=== PATIENT | female | born 1985 | race Hispanic/Latino ===

== ENCOUNTER 2016-11-21 21:33 | Emergency (ER) | payer OTHER ==
[2016-11-21 22:25] LABS: Bilirubin Negative (Negative); Blood, Urine Negative (Negative); Glucose, Urine (Dipstick) Negative (Negative); Ketone, Urine Negative (Negative); Nitrite Negative (Negative); Protein, Urine (Dipstick) Negative (Neg-Trace)
[2016-11-21 22:27] LABS: Bacteria/HPF Rare-Few HPF (None Seen); Hyaline Casts/LPF 0-3 HYALINE CAST LPF (0-3 Hyaline); RBC/HPF 0-3 HPF (0-3)
[2016-11-21 22:32] LABS: #Basophils 0.1 thou/uL (0.0-0.2); #Eosinphils 0.3 thou/uL (0.0-0.7); #Lymphocytes 2.6 thou/uL (1.20-3.40); #Monocytes 0.8 thou/uL (0.11-0.59); #Neutrophils 4.9 thou/uL (1.40-6.50); %Basophils 0.6 % (0.0-1.0); %Eosinophils 3.4 % (0.0-10.0); %Monocytes 9.4 % (0.0-10.0); Hematocrit 36.7 % (36.0-47.0); Mean Platelet Volume 7.6 fL (7.4-10.4); Red Blood Cell (RBC) Count 4.13 mill/uL (4.20-5.40); White Blood Cell (WBC) Count 8.7 thou/uL (4.8-10.8)
[2016-11-21 22:52] LABS: ALT (SGPT) 14 U/L (8-55); AST (SGOT) 10 U/L (5-34); Alkaline Phosphatase 59 U/L (40-150); Anion Gap 14 mmol/L (10-20); BUN (Urea Nitrogen) 11 mg/dL (7.0-18.7); Bilirubin, Total 0.2 mg/dL (0.2-1.2); Calc. Creatinine Clearance 0 mL/min (70-130); Calcium 9.5 mg/dL (7.8-10.44); Carbon Dioxide 25 mmol/L (22-29); Chloride 105 mmol/L (98-107); Estimated GFR-MDRD Greater than 90; Globulin 2.9 g/dL (2.4-3.5); Lipase 19 U/L (8-78); Protein, Total 6.6 g/dL (6.0-8.3)
== END 2016-11-21 23:07 | disposition home or self-care (01) ==
LOC: ERS 21:33
DX: N30.00 Acute cystitis without hematuria (principal); Z86.73 Personal history of transient ischemic attack (TIA), and cerebral infarction without residual deficits
CPT/HCPCS: 36415; 51701; 80053; 81003; 81015; 83690; 84703; 85025; A4353

== ENCOUNTER 2016-12-18 07:00 | Emergency (ER) | payer OTHER ==
[2016-12-18] MEDS ORDERED: Ondansetron ODT 4 MG TAB ONE (07:17)
[2016-12-18] MEDS ORDERED: Ketorolac Tromethamine 30 MG/ML VIAL ONE (07:17)
[2016-12-18 07:43] LABS: Bilirubin Negative (Negative); Blood, Urine Negative (Negative); Glucose, Urine (Dipstick) Negative (Negative); Ketone, Urine Negative (Negative); Nitrite Negative (Negative); Protein, Urine (Dipstick) Negative (Neg-Trace); Urobilinogen 0.2 mg/dL (0.2-1.0)
[2016-12-18 07:45] LABS: Bacteria/HPF Rare-Few HPF (None Seen); Hyaline Casts/LPF 0-3 HYALINE CAST LPF (0-3 Hyaline); RBC/HPF 0-3 HPF (0-3); WBC/HPF 0-3 HPF (0-3)
[2016-12-18 08:27] LABS: #Eosinphils 0.3 thou/uL (0.0-0.7); #Lymphocytes 1.7 thou/uL (1.20-3.40); #Monocytes 0.7 thou/uL (0.11-0.59); %Basophils 0.4 % (0.0-1.0); %Eosinophils 3.1 % (0.0-10.0); %Lymphocytes 19.9 % (21.0-51.0); %Monocytes 8.4 % (0.0-10.0); Hematocrit 39.9 % (36.0-47.0); Mean Platelet Volume 7.3 fL (7.4-10.4); White Blood Cell (WBC) Count 8.7 thou/uL (4.8-10.8)
[2016-12-18 08:47] LABS: ALT (SGPT) 14 U/L (8-55); AST (SGOT) 8 U/L (5-34); Alkaline Phosphatase 52 U/L (40-150); Anion Gap 12 mmol/L (10-20); BUN (Urea Nitrogen) 10 mg/dL (7.0-18.7); Bilirubin, Total 0.5 mg/dL (0.2-1.2); Calc. Creatinine Clearance 0 mL/min (70-130); Calcium 8.8 mg/dL (7.8-10.44); Carbon Dioxide 27 mmol/L (22-29); Chloride 105 mmol/L (98-107); Estimated GFR-MDRD Greater than 90; Globulin 3.3 g/dL (2.4-3.5); Lipase 14 U/L (8-78); Protein, Total 7.1 g/dL (6.0-8.3)
[2016-12-18] MEDS ORDERED: Lidocaine Viscous Sol 2% 15 ml UD Cup ONE (09:28)
[2016-12-18] MEDS ORDERED: Mag-Al 1200 mg/1200 mg/30 ML UDCUP ONE (09:28)
== END 2016-12-18 10:42 | disposition home or self-care (01) ==
LOC: ERS 07:00
DX: R10.13 Epigastric pain (principal)
CPT/HCPCS: 36415; 80053; 81003; 81015; 81025; 83690; 85025; 96372; J1885; Q0162

== ENCOUNTER 2017-01-09 11:19 | Emergency (ER) | payer SELFPAY ==
[2017-01-09] MEDS ORDERED: diphenhydrAMINE 50 MG/ML VIAL ONE (11:58)
[2017-01-09] MEDS ORDERED: Ketorolac Tromethamine 30 MG/ML VIAL ONE (11:59)
[2017-01-09] MEDS ORDERED: Metoclopramide HCl 10 MG/2 ML VIAL ONE (11:59)
[2017-01-09 13:04] LABS: #Eosinphils 0.3 thou/uL (0.0-0.7); #Lymphocytes 1.7 thou/uL (1.20-3.40); #Monocytes 0.5 thou/uL (0.11-0.59); #Neutrophils 4.6 thou/uL (1.40-6.50); %Basophils 0.6 % (0.0-1.0); %Lymphocytes 23.9 % (21.0-51.0); %Monocytes 7.1 % (0.0-10.0); Hematocrit 40.7 % (36.0-47.0); White Blood Cell (WBC) Count 7.2 thou/uL (4.8-10.8)
[2017-01-09 13:19] LABS: ALT (SGPT) 14 U/L (8-55); AST (SGOT) 8 U/L (5-34); Alkaline Phosphatase 51 U/L (40-150); Anion Gap 13 mmol/L (10-20); BUN (Urea Nitrogen) 12 mg/dL (7.0-18.7); Bilirubin, Total 0.3 mg/dL (0.2-1.2); Calc. Creatinine Clearance 0 mL/min (70-130); Calcium 9.2 mg/dL (7.8-10.44); Carbon Dioxide 25 mmol/L (22-29); Chloride 104 mmol/L (98-107); Estimated GFR-MDRD Greater than 90; Globulin 3.1 g/dL (2.4-3.5); Lipase 13 U/L (8-78); Protein, Total 6.9 g/dL (6.0-8.3)
[2017-01-09 13:26] LABS: Troponin I Less than 0.010 ng/mL (< 0.028)
== END 2017-01-09 14:14 | disposition home or self-care (01) ==
LOC: ERS 11:19
DX: R07.89 Other chest pain (principal); G43.909 Migraine, unspecified, not intractable, without status migrainosus
CPT/HCPCS: 80053; 82553; 83690; 84484; 85025; 93005; 96365; 96375; J1200; J1885; J2765

== ENCOUNTER 2017-02-25 19:57 | Emergency (ER) | payer MEDICAID, OTHER, SELFPAY ==
[2017-02-25] MEDS ORDERED: Magnesium Citrate 300 ML BOT ONE (21:01)
--- NOTE | 2017-02-25 21:23 | RAD ---
TWO VIEWS ABDOMEN: Indication: Constipation. FINDINGS: Bowel gas pattern is unobstructed. Only a minimal amount of retained stool is seen within the colon. No acute osseous abnormality is evident. No suspicious calcifications are identified. IMPRESSION: No acute abnormality. POS: [facility]
== END 2017-02-25 22:01 | disposition home or self-care (01) ==
LOC: ERS 19:57
DX: K59.00 Constipation, unspecified (principal); G43.909 Migraine, unspecified, not intractable, without status migrainosus; Z79.899 Other long term (current) drug therapy
CPT/HCPCS: 74018

== ENCOUNTER 2017-03-05 15:46 | Emergency (ER) | payer MEDICAID, OTHER, SELFPAY | END 2017-03-05 18:17 | disposition left against medical advice (07) | LOC: ERS 15:46 | DX: Z53.21 Procedure and treatment not carried out due to patient leaving prior to being seen by health care provider (principal) | CPT/HCPCS: 93005 ==

== ENCOUNTER 2017-03-05 18:21 | Emergency (ER) | payer MEDICAID, OTHER, SELFPAY ==
[2017-03-05 19:27] LABS: Bilirubin Negative (Negative); Blood, Urine Trace (Negative); Clarity CLEAR (Clear); Glucose, Urine (Dipstick) Negative (Negative); Leukocyte Negative (Negative); Nitrite Negative (Negative); Protein, Urine (Dipstick) Negative (Neg-Trace); Urobilinogen 0.2 mg/dL (0.2-1.0)
[2017-03-05 19:28] LABS: Bacteria/HPF None Seen HPF (None Seen); Hyaline Casts/LPF 0-3 HYALINE CAST LPF (0-3 Hyaline); Pathc Cast-AUWi Flag 0.13 (0-2.49); Squamous Epithelial 0-3 HPF (0-3); WBC/HPF None Seen HPF (0-3)
[2017-03-05 19:57] LABS: Bicarbonate (HCO3v) 24.9 mmol/L (1.0-85.0); CO2 Tension (PvCO2) 33.6 mmHg (41.0-51.0); Calcium, Ionized 1.12 mmol/L (1.12-1.32); Hemoglobin - Calc 16.8 g/dL (12.0-18.0); Lactate 1.81 mmol/L (0.50-2.20); O2 Tension (PvO2) 82.4 mmHg (35.0-45.0); Potassium 5.4 mmol/L (3.4-4.7); T. Carbon Dioxide 25.9 mmol/L (1.0-85.0); pH (Venous) 7.478 (7.35-7.45); vO2 Saturation-calc 96.9 % (0.0-100.0)
[2017-03-05] MEDS ORDERED: Acetaminophen 500 MG TAB ONE (20:11)
--- NOTE | 2017-03-05 20:23 | RAD ---
PA AND LATERAL VIEWS OF THE CHEST 03/05/17 HISTORY: Pleuritic chest pain. FINDINGS: Comparison is made with exam of 12/08/13. The heart size is normal. The lungs are expanded without focal areas of consolidation, pneumothorax o r pleural effusions. No acute osseous abnormalities are seen. IMPRESSION: No radiographic evidence of acute cardiopulmonary process. POS: [facility]
[2017-03-05 20:51] LABS: ALT (SGPT) 14 U/L (8-55); AST (SGOT) 7 U/L (5-34); Alkaline Phosphatase 48 U/L (40-150); Anion Gap 16 mmol/L (10-20); BUN (Urea Nitrogen) 10 mg/dL (7.0-18.7); Bilirubin, Total 0.3 mg/dL (0.2-1.2); Calc. Creatinine Clearance 0 mL/min (70-130); Calcium 8.9 mg/dL (7.8-10.44); Carbon Dioxide 21 mmol/L (22-29); Chloride 107 mmol/L (98-107); Estimated GFR-MDRD Greater than 90; Globulin 3.2 g/dL (2.4-3.5); Glucose 88 mg/dL (70-105); Protein, Total 7.2 g/dL (6.0-8.3); Sodium 140 mmol/L (136-145)
[2017-03-05 22:15] LABS: #Eosinphils 0.2 thou/uL (0.0-0.7); #Monocytes 0.6 thou/uL (0.11-0.59); #Neutrophils 4.8 thou/uL (1.40-6.50); %Basophils 0.2 % (0.0-1.0); %Eosinophils 3.4 % (0.0-10.0); %Lymphocytes 15.4 % (21.0-51.0); %Monocytes 9.1 % (0.0-10.0); %Neutrophils 71.9 % (42.0-75.0); Hemoglobin 11.4 g/dL (12.0-16.0); Mean Corpuscular HGB CONC 33.4 g/dL (32.0-36.0); Mean Corpuscular Hemoglobin 29.7 pg (27.0-31.0); Mean Platelet Volume 7.3 fL (7.4-10.4); Platelet Count 211 thou/uL (130-400); Red Blood Cell (RBC) Count 3.84 mill/uL (4.20-5.40); White Blood Cell (WBC) Count 6.6 thou/uL (4.8-10.8)
--- NOTE | 2017-03-05 23:46 | ULT ---
PELVIC ULTRASOUND WITH DOPPLER (Transabdominal, transvaginal, vines scale, color flow and spectral doppler). 03/05/17 HISTORY: Vaginal bleeding with clots. FINDINGS: The uterus measures 7.7 x 3.9 x 5.8 cm without focal mass or endometrial fluid. The endometrium measu res 5 mm in thickness. The right ovary measures 2.9 x 2.5 x 1.5 cm and the left ovary measures 3.3 x 2.1 x 2.8 cm. No adnexa l mass is seen. Flow is demonstrated to both ovaries. A small amount of free fluid is seen in the ant erior cul-de-sac. IMPRESSION: No significant abnormalities are identified. POS: [facility]
--- NOTE | 2017-03-23 22:42 | EKG ---
Test Reason : Blood Pressure : / mmHG Vent. Rate : 095 BPM Atrial Rate : 095 BPM P-R Int : 128 ms QRS Dur : 092 ms QT Int : 340 ms P-R-T Axes : 020 074 030 degrees QTc Int : 427 ms Normal sinus rhythm Normal ECG Confirmed by FRANCE ALVAREZ ([id number]), associate entertainment editor ROSALIND MURILLO ([id number]) on 03/23/2017 10:40:56 PM Referred By: Confirmed By:FRANCE ALVAREZ
== END 2017-03-06 00:02 | disposition home or self-care (01) ==
LOC: ERS 18:21
DX: J10.1 Influenza due to other identified influenza virus with other respiratory manifestations (principal); N94.6 Dysmenorrhea, unspecified; G43.909 Migraine, unspecified, not intractable, without status migrainosus
CPT/HCPCS: 36415; 51701; 71046; 76856; 80053; 81003; 81015; 82330; 82803; 83605; 85025; 86850; 86900; 86901; 87040; 87149; 87804; 93005; 96360

== ENCOUNTER 2017-04-06 09:45 | Emergency (ER) | payer MEDICAID, SELFPAY ==
[2017-04-06] MEDS ORDERED: diphenhydrAMINE 50 MG/ML VIAL ONE (12:12)
[2017-04-06] MEDS ORDERED: Ketorolac Tromethamine 30 MG/ML VIAL ONE (12:12)
[2017-04-06] MEDS ORDERED: Metoclopramide HCl 10 MG/2 ML VIAL ONE (12:12)
[2017-04-06 12:36] LABS: #Eosinphils 0.3 thou/uL (0.0-0.7); #Lymphocytes 1.6 thou/uL (1.20-3.40); #Monocytes 0.5 thou/uL (0.11-0.59); #Neutrophils 4.3 thou/uL (1.40-6.50); %Basophils 0.7 % (0.0-1.0); %Eosinophils 4.6 % (0.0-10.0); %Monocytes 7.9 % (0.0-10.0); %Neutrophils 63.8 % (42.0-75.0); Hemoglobin 12.5 g/dL (12.0-16.0); Mean Corpuscular HGB CONC 32.8 g/dL (32.0-36.0); Mean Corpuscular Hemoglobin 29.1 pg (27.0-31.0); Mean Corpuscular Volume 88.8 fl (81.0-99.0); Mean Platelet Volume 7.7 fL (7.4-10.4); Platelet Count 300 thou/uL (130-400); Red Blood Cell (RBC) Count 4.28 mill/uL (4.20-5.40); White Blood Cell (WBC) Count 6.8 thou/uL (4.8-10.8)
[2017-04-06 12:57] LABS: ALT (SGPT) 12 U/L (8-55); AST (SGOT) 10 U/L (5-34); Albumin 3.9 g/dL (3.5-5.0); Alkaline Phosphatase 54 U/L (40-150); Anion Gap 13 mmol/L (10-20); BUN (Urea Nitrogen) 7 mg/dL (7.0-18.7); Bilirubin, Total 0.3 mg/dL (0.2-1.2); CK (CPK) 135 U/L (29-168); Calc. Creatinine Clearance 0 mL/min (70-130); Calcium 9.5 mg/dL (7.8-10.44); Carbon Dioxide 25 mmol/L (22-29); Chloride 106 mmol/L (98-107); Estimated GFR-MDRD Greater than 90; Globulin 3.3 g/dL (2.4-3.5); Glucose 99 mg/dL (70-105); Protein, Total 7.2 g/dL (6.0-8.3); Sodium 140 mmol/L (136-145)
[2017-04-06 13:06] LABS: CKMB 2.4 ng/mL (0-6.6); Troponin I Less than 0.010 ng/mL (< 0.028)
[2017-04-06] MEDS ORDERED: Acetaminophen 500 MG TAB ONE (14:44)
[2017-04-06] MEDS ORDERED: Magnesium Sulfate 2 GM/100 ML BAG ONE (14:44)
[2017-04-06] MEDS ORDERED: methylPREDNISolone Sod Succ/PF 125 MG/2 ML VIAL ONE (14:44)
--- NOTE | 2017-04-20 17:04 | EKG ---
Test Reason : DIAGNOSING PURPOSES Blood Pressure : / mmHG Vent. Rate : 057 BPM Atrial Rate : 057 BPM P-R Int : 146 ms QRS Dur : 082 ms QT Int : 454 ms P-R-T Axes : 023 055 040 degrees QTc Int : 441 ms Sinus bradycardia Otherwise normal ECG Confirmed by BUBBA SALAZAR D.O. ([id number]), assistant editor ROSALIND MURILLO ([id number]) on 04/20/2017 5:04:04 PM Referred By: Confirmed By:BUBBA SALAZAR D.O.
== END 2017-04-06 15:58 | disposition home or self-care (01) ==
LOC: ERS 09:45
DX: G43.909 Migraine, unspecified, not intractable, without status migrainosus (principal)
CPT/HCPCS: 36415; 80053; 82553; 84484; 85025; 87804; 93005; 96365; 96366; 96367; 96375; J1200; J1885; J2765; J2930; J3475

== ENCOUNTER 2017-04-24 06:24 | Emergency (ER) | payer SELFPAY ==
[2017-04-24 07:18] LABS: Bilirubin Negative (Negative); Blood, Urine Negative (Negative); Clarity CLOUDY (Clear); Glucose, Urine (Dipstick) Negative (Negative); Leukocyte Moderate (Negative); Nitrite Negative (Negative); Protein, Urine (Dipstick) Negative (Neg-Trace); Specific Gravity, Urine 1.024 (1.002-1.036); Urobilinogen 0.2 mg/dL (0.2-1.0); pH, Urine 5.5 (5.0-9.0)
[2017-04-24 07:20] LABS: Bacteria/HPF 2+ HPF (None Seen); Hyaline Casts/LPF 4-6 HYALINE CAST LPF (0-3 Hyaline); Pathc Cast-AUWi Flag 0.81 (0-2.49); RBC/HPF 0-3 HPF (0-3)
[2017-04-24 07:25] LABS: Pregnancy Test - Urine (BHCG) Negative (Negative); Pregu Control Background? CLEAR/WHITE (CLR/WHITE); Pregu Control Bar Appear? YES (CONTROL BAR); Specific Gravity 1.024 (1.002-1.036)
[2017-04-24] MEDS ORDERED: Ondansetron HCl/PF 4 MG/2 ML Vial ONE (07:32)
[2017-04-24 07:46] LABS: #Basophils 0.1 thou/uL (0.0-0.2); #Eosinphils 0.4 thou/uL (0.0-0.7); #Lymphocytes 1.8 thou/uL (1.20-3.40); #Monocytes 0.7 thou/uL (0.11-0.59); #Neutrophils 5.5 thou/uL (1.40-6.50); %Basophils 0.8 % (0.0-1.0); %Eosinophils 4.3 % (0.0-10.0); %Lymphocytes 21.3 % (21.0-51.0); %Monocytes 8.3 % (0.0-10.0); %Neutrophils 65.3 % (42.0-75.0); Hemoglobin 12.2 g/dL (12.0-16.0); Mean Corpuscular HGB CONC 32.4 g/dL (32.0-36.0); Mean Corpuscular Hemoglobin 28.3 pg (27.0-31.0); Mean Corpuscular Volume 87.2 fl (81.0-99.0); Mean Platelet Volume 7.4 fL (7.4-10.4); Platelet Count 274 thou/uL (130-400); RBC Distribution Width 13.5 % (11.5-14.5); Red Blood Cell (RBC) Count 4.32 mill/uL (4.20-5.40); White Blood Cell (WBC) Count 8.4 thou/uL (4.8-10.8)
[2017-04-24 08:11] LABS: ALT (SGPT) 10 U/L (8-55); AST (SGOT) 7 U/L (5-34); Albumin 3.8 g/dL (3.5-5.0); Alkaline Phosphatase 45 U/L (40-150); Anion Gap 11 mmol/L (10-20); BUN (Urea Nitrogen) 13 mg/dL (7.0-18.7); Bilirubin, Total 0.3 mg/dL (0.2-1.2); Calc. Creatinine Clearance 0 mL/min (70-130); Calcium 9.1 mg/dL (7.8-10.44); Carbon Dioxide 25 mmol/L (22-29); Chloride 105 mmol/L (98-107); Estimated GFR-MDRD Greater than 90; Globulin 2.9 g/dL (2.4-3.5); Glucose 101 mg/dL (70-105); Lipase 23 U/L (8-78); Potassium 3.8 mmol/L (3.5-5.1); Protein, Total 6.7 g/dL (6.0-8.3); Sodium 137 mmol/L (136-145)
--- NOTE | 2017-04-24 08:55 | CT ---
CT ABDOMEN AND PELVIS WITH CONTRAST: HISTORY: Abdominal pain. COMPARISON: CT abdomen and pelvis 09/06/15. FINDINGS: Lung bases are clear. No pericardial effusion. The appendix is visualized and is normal. There are no dilated loops of large or small bowel. Both ovaries are seen. Mild diverticular disease of the sigmoid colon without active inflammation. The aortoiliac contour is normal. No aneurysmal dilatation. No hydronephrosis. The adrenal glands are unremarkable as well as the spleen and pancreas. Liver is unremarkable. No acute osseous abnormality. IMPRESSION: 1. No acute inflammatory process of the abdomen and pelvis. 2. Normal appendix. 3. Mild diverticular disease of sigmoid colon without active inflammation. POS: [facility]
[2017-04-24] MEDS ORDERED: ISOVUE-370 76%-LOCM 1 ML ONE (13:09)
== END 2017-04-24 08:58 | disposition home or self-care (01) ==
LOC: ERS 06:24
DX: N39.0 Urinary tract infection, site not specified (principal); G43.909 Migraine, unspecified, not intractable, without status migrainosus; Z79.899 Other long term (current) drug therapy; Z86.73 Personal history of transient ischemic attack (TIA), and cerebral infarction without residual deficits
CPT/HCPCS: 36415; 74177; 80053; 81003; 81015; 81025; 83690; 85025; 87086; 96361; 96374; J2405

== ENCOUNTER 2017-05-29 00:28 | Emergency (ER) | payer MEDICAID, OTHER ==
[2017-05-29] MEDS ORDERED: Acetaminophen 325 MG TAB ONE (02:25)
[2017-05-29] MEDS ORDERED: diphenhydrAMINE 50 MG/ML VIAL ONE (02:25)
[2017-05-29] MEDS ORDERED: Dexamethasone 10 MG/ML VIAL ONE (02:25)
[2017-05-29] MEDS ORDERED: Metoclopramide HCl 10 MG/2 ML VIAL ONE (02:27)
[2017-05-29] MEDS ORDERED: Ketorolac Tromethamine 30 MG/ML VIAL ONE (03:22)
[2017-05-29] MEDS ORDERED: Fentanyl 100 MCG/2 ML VIAL ONE (04:24)
== END 2017-05-29 05:50 | disposition home or self-care (01) ==
LOC: ERS 00:28
DX: G43.909 Migraine, unspecified, not intractable, without status migrainosus (principal)
CPT/HCPCS: 96365; 96367; 96375; J1100; J1200; J1885; J2765; J3010; J3475; J7050

== ENCOUNTER 2017-06-12 06:45 | Emergency (ER) | payer OTHER ==
[2017-06-12 07:29] LABS: #Eosinphils 0.4 thou/uL (0.0-0.7); #Lymphocytes 1.6 thou/uL (1.20-3.40); #Monocytes 0.7 thou/uL (0.11-0.59); #Neutrophils 7.8 thou/uL (1.40-6.50); %Basophils 0.4 % (0.0-1.0); %Eosinophils 3.4 % (0.0-10.0); %Lymphocytes 15.1 % (21.0-51.0); %Monocytes 6.5 % (0.0-10.0); %Neutrophils 74.6 % (42.0-75.0); Hemoglobin 12.8 g/dL (12.0-16.0); Mean Corpuscular HGB CONC 32.1 g/dL (32.0-36.0); Mean Corpuscular Hemoglobin 28.4 pg (27.0-31.0); Mean Corpuscular Volume 88.5 fl (81.0-99.0); Mean Platelet Volume 7.6 fL (7.4-10.4); Platelet Count 299 thou/uL (130-400); RBC Distribution Width 13.3 % (11.5-14.5); Red Blood Cell (RBC) Count 4.51 mill/uL (4.20-5.40); White Blood Cell (WBC) Count 10.5 thou/uL (4.8-10.8)
[2017-06-12 07:54] LABS: ALT (SGPT) 15 U/L (8-55); AST (SGOT) 8 U/L (5-34); Albumin 3.9 g/dL (3.5-5.0); Alkaline Phosphatase 53 U/L (40-150); Anion Gap 12 mmol/L (10-20); BUN (Urea Nitrogen) 8 mg/dL (7.0-18.7); Bilirubin, Total 0.5 mg/dL (0.2-1.2); Calc. Creatinine Clearance 0 mL/min (70-130); Calcium 9.4 mg/dL (7.8-10.44); Carbon Dioxide 24 mmol/L (22-29); Chloride 104 mmol/L (98-107); Estimated GFR-MDRD Greater than 90; Globulin 2.9 g/dL (2.4-3.5); Glucose 109 mg/dL (70-105); Lipase 12 U/L (8-78); Potassium 3.9 mmol/L (3.5-5.1); Protein, Total 6.8 g/dL (6.0-8.3); Sodium 136 mmol/L (136-145)
== END 2017-06-12 08:29 | disposition home or self-care (01) ==
LOC: ERS 06:45
DX: S80.861A Insect bite (nonvenomous), right lower leg, initial encounter (principal); L03.115 Cellulitis of right lower limb; R10.31 Right lower quadrant pain
CPT/HCPCS: 36415; 80053; 83690; 85025; 99284

== ENCOUNTER 2017-06-13 18:09 | Emergency (ER) | payer OTHER ==
[2017-06-13] MEDS ORDERED: methylPREDNISolone Sod Succ/PF 125 MG/2 ML VIAL ONE (18:53)
== END 2017-06-13 19:24 | disposition home or self-care (01) ==
LOC: ERS 18:09
DX: L03.115 Cellulitis of right lower limb (principal); J02.9 Acute pharyngitis, unspecified
CPT/HCPCS: 96372; J2930

== ENCOUNTER 2017-06-21 22:27 | Emergency (ER) | payer OTHER ==
[2017-06-21] MEDS ORDERED: Dicyclomine 20 MG TAB ONE (22:59)
[2017-06-21] MEDS ORDERED: Ondansetron ODT 8 MG TAB ONE (22:59)
[2017-06-21 23:13] LABS: #Eosinphils 0.4 thou/uL (0.0-0.7); #Lymphocytes 2.2 thou/uL (1.20-3.40); #Monocytes 0.7 thou/uL (0.11-0.59); #Neutrophils 4.9 thou/uL (1.40-6.50); %Basophils 0.4 % (0.0-1.0); %Eosinophils 4.4 % (0.0-10.0); %Lymphocytes 26.7 % (21.0-51.0); %Monocytes 8.6 % (0.0-10.0); Hemoglobin 12.2 g/dL (12.0-16.0); Mean Corpuscular HGB CONC 33.7 g/dL (32.0-36.0); Mean Corpuscular Volume 86.1 fl (81.0-99.0); Mean Platelet Volume 7.1 fL (7.4-10.4); Platelet Count 288 thou/uL (130-400); RBC Distribution Width 13.4 % (11.5-14.5); Red Blood Cell (RBC) Count 4.19 mill/uL (4.20-5.40); White Blood Cell (WBC) Count 8.1 thou/uL (4.8-10.8)
--- NOTE | 2017-06-21 23:30 | RAD ---
PORTABLE CHEST ONE VIEW 06/21/17 at 11:07 p.m. HISTORY: Chest pain, epigastric pain. FINDINGS: Comparison is made with the exam of 11/17/15. The heart size is normal. No confluent areas of consolidation, pneumothorax or pleural effusions are seen. IMPRESSION: No radiographic evidence of acute cardiopulmonary process. POS: [facility]
[2017-06-21 23:35] LABS: ALT (SGPT) 16 U/L (8-55); AST (SGOT) 10 U/L (5-34); Albumin 3.9 g/dL (3.5-5.0); Alkaline Phosphatase 54 U/L (40-150); Anion Gap 14 mmol/L (10-20); BUN (Urea Nitrogen) 12 mg/dL (7.0-18.7); Bilirubin, Total Less than 0.2 mg/dL (0.2-1.2); Calc. Creatinine Clearance 0 mL/min (70-130); Calcium 9.7 mg/dL (7.8-10.44); Carbon Dioxide 24 mmol/L (22-29); Chloride 106 mmol/L (98-107); Estimated GFR-MDRD Greater than 90; Globulin 2.9 g/dL (2.4-3.5); Glucose 91 mg/dL (70-105); Potassium 3.4 mmol/L (3.5-5.1); Protein, Total 6.8 g/dL (6.0-8.3); Sodium 141 mmol/L (136-145)
[2017-06-21 23:40] LABS: CKMB 4.3 ng/mL (0-6.6); Troponin I Less than 0.010 ng/mL (< 0.028)
== END 2017-06-22 00:26 | disposition home or self-care (01) ==
LOC: ERS 22:27
DX: R07.89 Other chest pain (principal); Z86.73 Personal history of transient ischemic attack (TIA), and cerebral infarction without residual deficits; Z79.899 Other long term (current) drug therapy
CPT/HCPCS: 36415; 71045; 80053; 82553; 84484; 85025; 93005

== ENCOUNTER 2017-07-18 18:26 | Emergency (ER) | payer OTHER ==
[2017-07-18 19:08] LABS: #Eosinphils 0.3 thou/uL (0.0-0.7); #Lymphocytes 1.7 thou/uL (1.20-3.40); #Monocytes 0.4 thou/uL (0.11-0.59); %Basophils 0.4 % (0.0-1.0); %Eosinophils 3.5 % (0.0-10.0); %Lymphocytes 20.2 % (21.0-51.0); %Monocytes 5.1 % (0.0-10.0); %Neutrophils 70.9 % (42.0-75.0); Hemoglobin 13.1 g/dL (12.0-16.0); Mean Corpuscular Hemoglobin 28.8 pg (27.0-31.0); Mean Corpuscular Volume 87.2 fl (81.0-99.0); Platelet Count 244 thou/uL (130-400); RBC Distribution Width 13.5 % (11.5-14.5); Red Blood Cell (RBC) Count 4.56 mill/uL (4.20-5.40); White Blood Cell (WBC) Count 8.5 thou/uL (4.8-10.8)
[2017-07-18] MEDS ORDERED: diphenhydrAMINE 50 MG/ML VIAL ONE (19:09)
[2017-07-18] MEDS ORDERED: Metoclopramide HCl 10 MG/2 ML VIAL ONE (19:09)
[2017-07-18 19:29] LABS: ALT (SGPT) 20 U/L (8-55); AST (SGOT) 19 U/L (5-34); Albumin 4.1 g/dL (3.5-5.0); Alkaline Phosphatase 48 U/L (40-150); Anion Gap 13 mmol/L (10-20); BUN (Urea Nitrogen) 9 mg/dL (7.0-18.7); Bilirubin, Total 0.4 mg/dL (0.2-1.2); Calc. Creatinine Clearance 0 mL/min (70-130); Calcium 9.2 mg/dL (7.8-10.44); Carbon Dioxide 28 mmol/L (22-29); Chloride 102 mmol/L (98-107); Estimated GFR-MDRD 90; Globulin 3.8 g/dL (2.4-3.5); Glucose 87 mg/dL (70-105); Lipase 16 U/L (8-78); Potassium 4.3 mmol/L (3.5-5.1); Protein, Total 7.9 g/dL (6.0-8.3); Sodium 139 mmol/L (136-145)
[2017-07-18 20:58] LABS: Bilirubin Negative (Negative); Blood, Urine Negative (Negative); Clarity CLEAR (Clear); Glucose, Urine (Dipstick) Negative (Negative); Leukocyte Small (Negative); Nitrite Negative (Negative); Protein, Urine (Dipstick) Negative (Neg-Trace); Specific Gravity, Urine 1.014 (1.002-1.036); Urobilinogen 0.2 mg/dL (0.2-1.0); pH, Urine 7.5 (5.0-9.0)
[2017-07-18 20:59] LABS: Pregnancy Test - Urine (BHCG) Negative (Negative); Pregu Control Background? CLEAR/WHITE (CLR/WHITE); Pregu Control Bar Appear? YES (CONTROL BAR); Specific Gravity 1.014 (1.002-1.036)
[2017-07-18 21:00] LABS: Bacteria/HPF Rare-Few HPF (None Seen); Hyaline Casts/LPF 0-3 HYALINE CAST LPF (0-3 Hyaline); Squamous Epithelial 0-3 HPF (0-3)
== END 2017-07-18 21:38 | disposition home or self-care (01) ==
LOC: ERS 18:26
DX: N39.0 Urinary tract infection, site not specified (principal); R51 Headache; Z79.899 Other long term (current) drug therapy
CPT/HCPCS: 80053; 81003; 81015; 81025; 83690; 85025; 96361; 96374; 96375; J1200; J2765

== ENCOUNTER 2017-09-08 14:17 | Emergency (ER) | payer OTHER ==
[~2017-09-08 14:17] MED LIST: ISOVUE-370 76%-LOCM 1 ML ONE
[2017-09-08 15:26] LABS: Bilirubin Negative (Negative); Blood, Urine Negative (Negative); Clarity CLEAR (Clear); Glucose, Urine (Dipstick) Negative (Negative); Leukocyte Small (Negative); Nitrite Negative (Negative); Protein, Urine (Dipstick) Negative (Neg-Trace); Specific Gravity, Urine 1.028 (1.002-1.036); Urobilinogen 0.2 mg/dL (0.2-1.0); pH, Urine 5.5 (5.0-9.0)
[2017-09-08 15:28] LABS: Bacteria/HPF Rare-Few HPF (None Seen); Hyaline Casts/LPF 0-3 HYALINE CAST LPF (0-3 Hyaline); Pathc Cast-AUWi Flag 0.14 (0-2.49); WBC/HPF 0-3 HPF (0-3)
[2017-09-08 15:45] LABS: RBC/HPF 0-3 HPF (0-3)
[2017-09-08 16:36] LABS: Pregnancy Test - Urine (BHCG) Negative (Negative); Pregu Control Background? CLEAR/WHITE (CLR/WHITE); Pregu Control Bar Appear? YES (CONTROL BAR); Specific Gravity 1.028 (1.002-1.036)
[2017-09-08 16:42] LABS: #Eosinphils 0.2 thou/uL (0.0-0.7); #Lymphocytes 1.8 thou/uL (1.20-3.40); #Monocytes 0.6 thou/uL (0.11-0.59); #Neutrophils 5.5 thou/uL (1.40-6.50); %Basophils 0.5 % (0.0-1.0); %Eosinophils 2.4 % (0.0-10.0); %Lymphocytes 22.6 % (21.0-51.0); %Neutrophils 67.5 % (42.0-75.0); Hemoglobin 12.9 g/dL (12.0-16.0); Mean Corpuscular HGB CONC 33.2 g/dL (32.0-36.0); Mean Corpuscular Hemoglobin 28.8 pg (27.0-31.0); Mean Corpuscular Volume 86.9 fL (78.0-98.0); Mean Platelet Volume 7.7 fL (7.4-10.4); Platelet Count 276 thou/uL (130-400); RBC Distribution Width 13.3 % (11.5-14.5); Red Blood Cell (RBC) Count 4.47 mill/uL (4.20-5.40); White Blood Cell (WBC) Count 8.1 thou/uL (4.8-10.8)
[2017-09-08 17:07] LABS: ALT (SGPT) 15 U/L (8-55); AST (SGOT) 9 U/L (5-34); Albumin 4.2 g/dL (3.5-5.0); Alkaline Phosphatase 52 U/L (40-150); Anion Gap 13 mmol/L (10-20); BUN (Urea Nitrogen) 13 mg/dL (7.0-18.7); Bilirubin, Total 0.3 mg/dL (0.2-1.2); Calc. Creatinine Clearance 0 mL/min (70-130); Calcium 9.8 mg/dL (7.8-10.44); Carbon Dioxide 24 mmol/L (22-29); Chloride 107 mmol/L (98-107); Estimated GFR-MDRD Greater than 90; Globulin 3.3 g/dL (2.4-3.5); Glucose 88 mg/dL (70-105); Lipase 19 U/L (8-78); Protein, Total 7.5 g/dL (6.0-8.3); Sodium 140 mmol/L (136-145)
[2017-09-08] MEDS ORDERED: Mag-Al 1200 mg/1200 mg/30 ML UDCUP ONE (17:21)
[2017-09-08] MEDS ORDERED: Lidocaine Viscous Sol 2% 15 ml UD Cup ONE (17:21)
--- NOTE | 2017-09-08 17:33 | CT ---
CONTRAST ENHANCED CT ABDOMEN AND PELVIS: HISTORY: A 31-year-old with a two week history of abdominal pain in the left upper quadrant. The patient has dark bloody stools. TECHNIQUE: Contrast enhanced CT images of the abdomen and pelvis are obtained. Oral contrast was not given, per the order of the ordering physician. This does decrease the sensitivity for detection of pathology. FINDINGS: The lung bases are unremarkable. No evidence of free intraperitoneal air is seen. The liver, spleen, pancreas, gallbladder, adrenal glands, and kidneys are unremarkable. No definite evidence of free intraperitoneal air is seen. No dilated loops of small bowel or colon are seen. No evidence of periaortic lymphadenopathy is seen. The kidneys and ureters are unremarkable. A normal appendix is visualized. Some descending colonic diverticula are present, without evidence of obvious diverticulitis. IMPRESSION: Descending colonic diverticulosis; otherwise, unremarkable contrast enhanced CT images of the abdomen and pelvis. POS: [facility]
== END 2017-09-08 18:47 | disposition home or self-care (01) ==
LOC: ERS 14:17
DX: K29.70 Gastritis, unspecified, without bleeding (principal); N39.0 Urinary tract infection, site not specified; Z79.899 Other long term (current) drug therapy
CPT/HCPCS: 74177; 80053; 81003; 81015; 81025; 83690; 85025

== ENCOUNTER 2017-09-12 20:44 | Emergency (ER) | payer OTHER ==
[2017-09-12 21:46] LABS: Bilirubin Negative (Negative); Blood, Urine Large (Negative); Clarity CLOUDY (Clear); Glucose, Urine (Dipstick) Negative (Negative); Leukocyte Moderate (Negative); Nitrite Negative (Negative); Protein, Urine (Dipstick) 30 mg/dL (Neg-Trace); Specific Gravity, Urine 1.029 (1.002-1.036)
[2017-09-12 21:47] LABS: Pregnancy Test - Urine (BHCG) Negative (Negative); Pregu Control Background? CLEAR/WHITE (CLR/WHITE); Pregu Control Bar Appear? YES (CONTROL BAR); Specific Gravity 1.029 (1.002-1.036)
[2017-09-12 21:51] LABS: Bacteria/HPF None Seen HPF (None Seen); Hyaline Casts/LPF 0-3 HYALINE CAST LPF (0-3 Hyaline); Pathc Cast-AUWi Flag 0.22 (0-2.49); RBC/HPF GREATER THAN 50-TNTC HPF (0-3)
[2017-09-12 22:16] LABS: #Eosinphils 0.3 thou/uL (0.0-0.7); #Lymphocytes 1.9 thou/uL (1.20-3.40); #Monocytes 0.6 thou/uL (0.11-0.59); #Neutrophils 4.6 thou/uL (1.40-6.50); %Basophils 0.5 % (0.0-1.0); %Eosinophils 4.2 % (0.0-10.0); %Lymphocytes 25.6 % (21.0-51.0); %Monocytes 7.8 % (0.0-10.0); %Neutrophils 61.9 % (42.0-75.0); Hemoglobin 12.1 g/dL (12.0-16.0); Mean Corpuscular HGB CONC 32.4 g/dL (32.0-36.0); Mean Corpuscular Hemoglobin 28.4 pg (27.0-31.0); Mean Corpuscular Volume 87.6 fL (78.0-98.0); Mean Platelet Volume 7.7 fL (7.4-10.4); Platelet Count 234 thou/uL (130-400); RBC Distribution Width 13.3 % (11.5-14.5); Red Blood Cell (RBC) Count 4.26 mill/uL (4.20-5.40); White Blood Cell (WBC) Count 7.4 thou/uL (4.8-10.8)
[2017-09-12 22:40] LABS: ALT (SGPT) 13 U/L (8-55); AST (SGOT) 8 U/L (5-34); Albumin 3.9 g/dL (3.5-5.0); Alkaline Phosphatase 52 U/L (40-150); Anion Gap 12 mmol/L (10-20); BUN (Urea Nitrogen) 10 mg/dL (7.0-18.7); Calc. Creatinine Clearance 0 mL/min (70-130); Calcium 8.8 mg/dL (7.8-10.44); Carbon Dioxide 24 mmol/L (22-29); Chloride 108 mmol/L (98-107); Estimated GFR-MDRD Greater than 90; Globulin 2.9 g/dL (2.4-3.5); Glucose 96 mg/dL (70-105); Protein, Total 6.8 g/dL (6.0-8.3); Sodium 140 mmol/L (136-145)
[2017-09-12 22:48] LABS: Bilirubin, Total 0.2 mg/dL (0.2-1.2)
[2017-09-13] MEDS ORDERED: diphenhydrAMINE 50 MG/ML VIAL ONE (00:15)
[2017-09-13] MEDS ORDERED: Ketorolac Tromethamine 30 MG/ML VIAL ONE (00:15)
[2017-09-13] MEDS ORDERED: Metoclopramide HCl 10 MG/2 ML VIAL ONE (00:15)
[2017-09-13] MEDS ORDERED: Azithromycin 250 MG TAB ONE (02:24)
[2017-09-13] MEDS ORDERED: cefTRIAXone\\ROCEPHIN 250 MG VIAL ONE (02:24)
[2017-09-13] MEDS ORDERED: Lidocaine 1% PF 5 ML VIAL ONE (02:24)
[2017-09-16 01:08] LABS: Chlamydia by PCR Not Detected (NotDetected); GC by PCR Not Detected (NotDetected)
== END 2017-09-13 03:09 | disposition home or self-care (01) ==
LOC: ERS 20:44
DX: R10.2 Pelvic and perineal pain (principal); G43.909 Migraine, unspecified, not intractable, without status migrainosus; Z79.899 Other long term (current) drug therapy
CPT/HCPCS: 36415; 80053; 81003; 81015; 81025; 85025; 87086; 87480; 87491; 87510; 87591; 87660; 96361; 96372; 96374; 96375; J0696; J1200; J1885; J2001; J2765

== ENCOUNTER 2017-10-10 16:41 | Emergency (ER) | payer OTHER ==
[2017-10-10 17:29] LABS: Bilirubin Negative (Negative); Blood, Urine Negative (Negative); Clarity CLEAR (Clear); Glucose, Urine (Dipstick) Negative (Negative); Leukocyte Moderate (Negative); Nitrite Negative (Negative); Protein, Urine (Dipstick) Negative (Neg-Trace); Specific Gravity, Urine 1.011 (1.002-1.036); Urobilinogen 0.2 mg/dL (0.2-1.0); pH, Urine 7.5 (5.0-9.0)
[2017-10-10 17:31] LABS: Bacteria/HPF Rare-Few HPF (None Seen); Hyaline Casts/LPF 0-3 HYALINE CAST LPF (0-3 Hyaline); RBC/HPF 0-3 HPF (0-3); Squamous Epithelial 0-3 HPF (0-3)
[2017-10-10 17:40] LABS: Pregnancy Test - Urine (BHCG) Negative (Negative); Pregu Control Background? CLEAR/WHITE (CLR/WHITE); Pregu Control Bar Appear? YES (CONTROL BAR); Specific Gravity 1.011 (1.002-1.036)
[2017-10-10 17:45] LABS: #Eosinphils 0.2 thou/uL (0.0-0.7); #Lymphocytes 1.9 thou/uL (1.20-3.40); #Monocytes 0.6 thou/uL (0.11-0.59); #Neutrophils 6.1 thou/uL (1.40-6.50); %Basophils 0.5 % (0.0-1.0); %Eosinophils 2.6 % (0.0-10.0); %Lymphocytes 21.2 % (21.0-51.0); %Monocytes 7.1 % (0.0-10.0); %Neutrophils 68.6 % (42.0-75.0); Hemoglobin 13.3 g/dL (12.0-16.0); Mean Corpuscular HGB CONC 33.6 g/dL (32.0-36.0); Mean Corpuscular Hemoglobin 29.5 pg (27.0-31.0); Mean Corpuscular Volume 87.7 fL (78.0-98.0); Mean Platelet Volume 7.6 fL (7.4-10.4); Platelet Count 244 thou/uL (130-400); RBC Distribution Width 13.4 % (11.5-14.5); Red Blood Cell (RBC) Count 4.51 mill/uL (4.20-5.40); White Blood Cell (WBC) Count 8.9 thou/uL (4.8-10.8)
== END 2017-10-10 18:29 | disposition home or self-care (01) ==
LOC: ERS 16:41
DX: R10.30 Lower abdominal pain, unspecified (principal)
CPT/HCPCS: 36415; 81003; 81015; 81025; 85025; 99284

== ENCOUNTER 2017-12-08 14:08 | Emergency (ER) | payer OTHER ==
--- NOTE | 2017-12-08 17:48 | RAD ---
PORTABLE CHEST: History: Chest pain. Comparison: 06-21-17 FINDINGS: Heart size is borderline for portable technique. Mediastinal structures are unremarkable. The lungs a re clear of infiltrates. IMPRESSION: Borderline heart size. POS: [facility]
== END 2017-12-08 17:17 | disposition home or self-care (01) ==
LOC: ERS 14:08
DX: R07.2 Precordial pain (principal); G43.909 Migraine, unspecified, not intractable, without status migrainosus
CPT/HCPCS: 71045; 93005

== ENCOUNTER 2018-01-02 08:38 | Outpatient (CLI) | payer OTHER ==
--- NOTE | 2018-01-02 11:15 | ULT ---
SONOGRAM RIGHT BREAST: History: Right breast lump. Single episode of pink nipple discharge. FINDINGS: Sonographic evaluation at the 2 o'clock position of the right breast in the region of pain and palpab le abnormality shows scattered fibroglandular densities. No solid or cystic masses. Evaluation of the retroareolar aspect of the breast shows normal breast tissue without a dilated duct evident. IMPRESSION: BIRADS category 2 - benign findings. Should the nipple discharge, especially bloody, persist further evaluation with MRI of the breast rani uld be considered. POS: [facility]
== END 2018-01-02 08:39 | disposition home or self-care (01) ==
LOC: BICMAMMO 08:38
PROVIDERS: ATTEND Advanced Practice Midwife
DX: N64.4 Mastodynia (principal); R92.1 Mammographic calcification found on diagnostic imaging of breast
CPT/HCPCS: 77066; G0279

== ENCOUNTER 2018-01-24 07:02 | Emergency (ER) | payer OTHER ==
[2018-01-24 07:38] LABS: Bilirubin Negative (Negative); Blood, Urine Negative (Negative); Clarity CLOUDY (Clear); Glucose, Urine (Dipstick) Negative (Negative); Leukocyte Small (Negative); Nitrite Negative (Negative); Protein, Urine (Dipstick) Negative (Neg-Trace); Specific Gravity, Urine 1.019 (1.002-1.036); Urobilinogen 0.2 mg/dL (0.2-1.0)
[2018-01-24 07:40] LABS: Bacteria/HPF None Seen HPF (None Seen); Hyaline Casts/LPF 4-6 HYALINE CAST LPF (0-3 Hyaline); Pathc Cast-AUWi Flag 0.72 (0-2.49)
[2018-01-24 07:56] LABS: Pregnancy Test - Urine (BHCG) Negative (Negative); Pregu Control Background? CLEAR/WHITE (CLR/WHITE); Pregu Control Bar Appear? YES (CONTROL BAR); Specific Gravity 1.019 (1.002-1.036)
[2018-01-24] MEDS ORDERED: Ketorolac Tromethamine 30 MG/ML VIAL ONE (09:18)
[2018-01-24] MEDS ORDERED: Ondansetron ODT 4 MG TAB ONE (09:18)
[2018-01-24 10:18] LABS: #Basophils 0.1 thou/uL (0.0-0.2); #Eosinphils 0.4 thou/uL (0.0-0.7); #Lymphocytes 1.7 thou/uL (1.20-3.40); #Monocytes 0.5 thou/uL (0.11-0.59); #Neutrophils 6.7 thou/uL (1.40-6.50); %Basophils 0.7 % (0.0-1.0); %Eosinophils 3.9 % (0.0-10.0); %Lymphocytes 18.3 % (21.0-51.0); %Monocytes 5.8 % (0.0-10.0); %Neutrophils 71.3 % (42.0-75.0); Hemoglobin 13.1 g/dL (12.0-16.0); Mean Corpuscular HGB CONC 33.3 g/dL (32.0-36.0); Mean Corpuscular Hemoglobin 28.5 pg (27.0-31.0); Mean Corpuscular Volume 85.7 fL (78.0-98.0); Mean Platelet Volume 7.8 fL (7.4-10.4); Platelet Count 310 thou/uL (130-400); RBC Distribution Width 13.2 % (11.5-14.5); Red Blood Cell (RBC) Count 4.61 mill/uL (4.20-5.40); White Blood Cell (WBC) Count 9.4 thou/uL (4.8-10.8)
--- NOTE | 2018-01-24 10:29 | ULT ---
PELVIC ULTRASOUND: HISTORY: Pelvic pain. FINDINGS: Real-time imaging of the pelvis was obtained transabdominally as well as with an endovaginal probe. This shows a uterus measuring 4.7 x 6 x 8.1 cm. The endometrium is thickened at 1.5 cm. Right and left adnexa are normal in size. There is a 2.4 cm right ovarian cyst. DOPPLER EVALUATION WITH SPECTRAL ANALYSIS: Normal flow is shown to both adnexa. IMPRESSION: 1. Thickened endometrium probably related to stage of menstrual cycle. 2. A 2.4 cm right ovarian cyst. POS: [facility]
[2018-01-24 10:43] LABS: ALT (SGPT) 15 U/L (8-55); AST (SGOT) 8 U/L (5-34); Albumin 3.9 g/dL (3.5-5.0); Alkaline Phosphatase 45 U/L (40-150); Anion Gap 11 mmol/L (10-20); BUN (Urea Nitrogen) 8 mg/dL (7.0-18.7); Bilirubin, Total 0.3 mg/dL (0.2-1.2); Calc. Creatinine Clearance 0 mL/min (70-130); Calcium 9.5 mg/dL (7.8-10.44); Carbon Dioxide 29 mmol/L (22-29); Chloride 101 mmol/L (98-107); Estimated GFR-MDRD Greater than 90; Globulin 3.2 g/dL (2.4-3.5); Glucose 98 mg/dL (70-105); Lipase 22 U/L (8-78); Potassium 4.2 mmol/L (3.5-5.1); Protein, Total 7.1 g/dL (6.0-8.3); Sodium 137 mmol/L (136-145)
--- NOTE | 2018-01-24 10:53 | CT ---
CT ABDOMEN AND PELVIS: 01/24/2018 HISTORY: Right-sided abdominal pain/pelvic pain. COMPARISON: 09/06/2015 TECHNIQUE: Serial axial CT imaging is obtained at 5 mm intervals, from the lung bases through the pubic symphysi s, without contrast. Coronal reformatted imaging obtained. FINDINGS: Lack of contrast media limits assessment of the viscera, bowel, and vascular structures, and for lymp hadenopathy. The imaged lung bases are unremarkable. There is no free intraperitoneal air or fluid. The liver, gallbladder, spleen, pancreas, adrenal glands, and kidneys appear unremarkable. There is no hydronephrosis or nephrolithiasis. There is no evidence for obstructive uropathy seen on either s enrico. No significant free fluid noted in the abdomen or pelvis. There is diverticulosis of the sigmoid col on with no evidence for diverticulitis. The appendix is visualized and appears within normal limits. Osseous structures demonstrate no acute findings. IMPRESSION: No acute findings. POS: [facility]
== END 2018-01-24 11:20 | disposition home or self-care (01) ==
LOC: ERS 07:02
DX: N83.201 Unspecified ovarian cyst, right side (principal)
CPT/HCPCS: 36415; 74176; 76856; 80053; 81003; 81015; 81025; 83690; 85025; 96372; J1885; Q0162

== ENCOUNTER 2018-01-27 10:14 | Emergency (ER) | payer OTHER ==
[2018-01-27 10:51] LABS: #Eosinphils 0.4 thou/uL (0.0-0.7); #Lymphocytes 1.5 thou/uL (1.20-3.40); #Monocytes 0.5 thou/uL (0.11-0.59); #Neutrophils 3.8 thou/uL (1.40-6.50); %Basophils 0.5 % (0.0-1.0); %Eosinophils 5.7 % (0.0-10.0); %Lymphocytes 24.5 % (21.0-51.0); %Monocytes 7.7 % (0.0-10.0); %Neutrophils 61.6 % (42.0-75.0); Hemoglobin 13.1 g/dL (12.0-16.0); Mean Corpuscular HGB CONC 31.9 g/dL (32.0-36.0); Mean Corpuscular Hemoglobin 28.6 pg (27.0-31.0); Mean Corpuscular Volume 89.7 fL (78.0-98.0); Mean Platelet Volume 8.2 fL (7.4-10.4); Platelet Count 259 thou/uL (130-400); RBC Distribution Width 13.1 % (11.5-14.5); White Blood Cell (WBC) Count 6.2 thou/uL (4.8-10.8)
== END 2018-01-27 11:58 | disposition left against medical advice (07) ==
LOC: ERS 10:14
DX: R10.9 Unspecified abdominal pain (principal); G43.909 Migraine, unspecified, not intractable, without status migrainosus; Z86.73 Personal history of transient ischemic attack (TIA), and cerebral infarction without residual deficits
CPT/HCPCS: 36415; 85025; 99284

== ENCOUNTER 2018-03-07 09:12 | Emergency (ER) | payer OTHER, SELFPAY ==
[2018-03-07] MEDS ORDERED: Ibuprofen 800 MG TAB ONE (10:23)
[2018-03-07] MEDS ORDERED: Dicyclomine 20 MG TAB ONE (10:23)
[2018-03-07] MEDS ORDERED: diphenhydrAMINE 25 MG CAP ONE (10:33)
== END 2018-03-07 10:31 | disposition home or self-care (01) ==
LOC: ERS 09:12
DX: R51 Headache (principal); E11.9 Type 2 diabetes mellitus without complications; Z86.73 Personal history of transient ischemic attack (TIA), and cerebral infarction without residual deficits; Z79.84 Long term (current) use of oral hypoglycemic drugs
CPT/HCPCS: 99283

== ENCOUNTER 2018-03-18 19:24 | Emergency (ER) | payer OTHER, SELFPAY ==
[2018-03-18 21:53] LABS: #Eosinphils 0.1 thou/uL (0.0-0.7); #Lymphocytes 1.6 thou/uL (1.20-3.40); #Monocytes 0.8 thou/uL (0.11-0.59); #Neutrophils 6.3 thou/uL (1.40-6.50); %Basophils 0.1 % (0.0-1.0); %Eosinophils 1.1 % (0.0-10.0); %Lymphocytes 18.6 % (21.0-51.0); %Monocytes 8.7 % (0.0-10.0); %Neutrophils 71.6 % (42.0-75.0); Hemoglobin 13.8 g/dL (12.0-16.0); Mean Corpuscular HGB CONC 32.8 g/dL (32.0-36.0); Mean Corpuscular Hemoglobin 28.8 pg (27.0-31.0); Mean Corpuscular Volume 87.9 fL (78.0-98.0); Mean Platelet Volume 7.8 fL (7.4-10.4); Platelet Count 310 thou/uL (130-400); RBC Distribution Width 13.1 % (11.5-14.5); Red Blood Cell (RBC) Count 4.79 mill/uL (4.20-5.40); White Blood Cell (WBC) Count 8.8 thou/uL (4.8-10.8)
[2018-03-18 22:00] LABS: BHCG - Serum Negative (NEGATIVE); Pregs Control Background? CLEAR/WHITE (CLR/WHITE); Pregs Control Bar Appear? YES (CONTROL BAR)
[2018-03-18] MEDS ORDERED: Dicyclomine 20 MG TAB ONE (22:02)
[2018-03-18] MEDS ORDERED: Metoclopramide HCl 10 MG/2 ML VIAL ONE (22:02)
[2018-03-18] MEDS ORDERED: diphenhydrAMINE 50 MG/ML VIAL ONE (22:04)
[2018-03-18 22:13] LABS: ALT (SGPT) 22 U/L (8-55); AST (SGOT) 9 U/L (5-34); Albumin 4.3 g/dL (3.5-5.0); Alkaline Phosphatase 45 U/L (40-150); Anion Gap 14 mmol/L (10-20); BUN (Urea Nitrogen) 15 mg/dL (7.0-18.7); Bilirubin, Total 0.3 mg/dL (0.2-1.2); Calc. Creatinine Clearance 0 mL/min (70-130); Calcium 9.6 mg/dL (7.8-10.44); Carbon Dioxide 19 mmol/L (22-29); Chloride 106 mmol/L (98-107); Estimated GFR-MDRD 81; Globulin 3.7 g/dL (2.4-3.5); Glucose 104 mg/dL (70-105); Potassium 3.3 mmol/L (3.5-5.1); Sodium 136 mmol/L (136-145)
[2018-03-18] MEDS ORDERED: Ondansetron PF 4 MG/2 ML Vial ONE (23:15)
--- NOTE | 2018-03-18 23:54 | CT ---
CT ABDOMEN AND PELVIS 03/18/18 COMPARISON: 01/24/18 and . HISTORY: Diffuse abdominal pain, blood in stool. TECHNIQUE: Axial CT imaging is obtained at 5 mm intervals from lung bases through pubic symphysis with IV contra st. Coronal reformatted imaging obtained. FINDINGS: The visualized lung bases are unremarkable. No free intraperitoneal air is noted. Lack of oral contra st slightly limits assessment of the bowel. The liver, gallbladder, spleen, pancreas, adrenal glands, and kidneys are unremarkable. There is diverticulosis of the sigmoid colon with no evidence for diverticulitis. Material of fluid d ensity is seen within the colon suggesting enteritis/diarrheal illness. No evidence for bowel obstruc tion. The appendix is unremarkable. Vascular structures appear patent. No lymphadenopathy is appreciated within the abdomen or pelvis. Th e osseous structures demonstrate degenerative change at the level of the right sacroiliac joint. No w orrisome lytic or blastic bone lesion. IMPRESSION: Sigmoid diverticulosis without evidence for diverticulitis. No evidence for free intraperitoneal air or bowel obstruction. POS: [facility]
== END 2018-03-18 23:25 | disposition home or self-care (01) ==
LOC: ERS 19:24
DX: R11.2 Nausea with vomiting, unspecified (principal); R19.7 Diarrhea, unspecified; E11.9 Type 2 diabetes mellitus without complications; Z86.73 Personal history of transient ischemic attack (TIA), and cerebral infarction without residual deficits; G43.909 Migraine, unspecified, not intractable, without status migrainosus; Z79.84 Long term (current) use of oral hypoglycemic drugs
CPT/HCPCS: 36415; 74177; 80053; 83605; 84703; 85025; 96361; 96374; 96375; J1200; J2405; J2765

== ENCOUNTER 2018-05-03 07:49 | Emergency (ER) | payer MEDICAID ==
[2018-05-03] MEDS ORDERED: Acetaminophen 500 MG TAB ONE (08:40)
[2018-05-03 08:54] LABS: #Eosinphils 0.2 thou/uL (0.0-0.7); #Lymphocytes 1.5 thou/uL (1.20-3.40); #Monocytes 0.6 thou/uL (0.11-0.59); #Neutrophils 5.7 thou/uL (1.40-6.50); %Basophils 0.3 % (0.0-1.0); %Eosinophils 2.8 % (0.0-10.0); %Lymphocytes 18.8 % (21.0-51.0); %Monocytes 7.6 % (0.0-10.0); %Neutrophils 70.6 % (42.0-75.0); Hemoglobin 12.6 g/dL (12.0-16.0); Mean Corpuscular HGB CONC 31.9 g/dL (32.0-36.0); Mean Corpuscular Volume 87.7 fL (78.0-98.0); Mean Platelet Volume 8.3 fL (7.4-10.4); Platelet Count 281 thou/uL (130-400); RBC Distribution Width 12.9 % (11.5-14.5); Red Blood Cell (RBC) Count 4.51 mill/uL (4.20-5.40); White Blood Cell (WBC) Count 8.1 thou/uL (4.8-10.8)
[2018-05-03 09:25] LABS: ALT (SGPT) 16 U/L (8-55); AST (SGOT) 7 U/L (5-34); Albumin 3.9 g/dL (3.5-5.0); Alkaline Phosphatase 51 U/L (40-150); Anion Gap 10 mmol/L (10-20); BUN (Urea Nitrogen) 12 mg/dL (7.0-18.7); Bilirubin, Total 0.2 mg/dL (0.2-1.2); CK (CPK) 74 U/L (29-168); Calc. Creatinine Clearance 0 mL/min (70-130); Calcium 9.3 mg/dL (7.8-10.44); Carbon Dioxide 27 mmol/L (22-29); Chloride 106 mmol/L (98-107); Estimated GFR-MDRD Greater than 90; Glucose 102 mg/dL (70-105); Protein, Total 6.9 g/dL (6.0-8.3); Sodium 139 mmol/L (136-145)
--- NOTE | 2018-05-03 10:17 | RAD ---
SINGLE VIEW OF THE CHEST: COMPARISON: 12/08/2017. HISTORY: Swelling and edema in the arms and legs since yesterday. Dyspnea. FINDINGS: Single view of the chest shows a normal sized cardiomediastinal silhouette. There is no evidence of c onsolidation, mass, or pleural effusion. The bones are unremarkable. IMPRESSION: No evidence of acute cardiopulmonary disease. POS: [facility]
== END 2018-05-03 10:01 | disposition home or self-care (01) ==
LOC: ERS 07:49
DX: R60.9 Edema, unspecified (principal); E11.9 Type 2 diabetes mellitus without complications; Z86.73 Personal history of transient ischemic attack (TIA), and cerebral infarction without residual deficits; G43.909 Migraine, unspecified, not intractable, without status migrainosus; Z79.84 Long term (current) use of oral hypoglycemic drugs; Z79.899 Other long term (current) drug therapy
CPT/HCPCS: 71045; 80053; 82550; 83880; 84443; 84484; 85025; 93005

== ENCOUNTER 2018-05-26 09:12 | Emergency (ER) | payer MEDICAID, OTHER ==
[2018-05-26 10:40] LABS: Bilirubin Negative (Negative); Blood, Urine Negative (Negative); Clarity CLEAR (Clear); Glucose, Urine (Dipstick) Negative (Negative); Leukocyte Negative (Negative); Nitrite Negative (Negative); Protein, Urine (Dipstick) Negative (Neg-Trace); Specific Gravity, Urine 1.022 (1.002-1.036); Urobilinogen 0.2 mg/dL (0.2-1.0); pH, Urine 5.5 (5.0-9.0)
[2018-05-26 10:40] LABS: #Eosinphils 0.3 thou/uL (0.0-0.7); #Lymphocytes 1.5 thou/uL (1.20-3.40); #Monocytes 0.5 thou/uL (0.11-0.59); %Basophils 0.4 % (0.0-1.0); %Eosinophils 3.6 % (0.0-10.0); %Lymphocytes 20.5 % (21.0-51.0); %Monocytes 6.4 % (0.0-10.0); Hemoglobin 12.2 g/dL (12.0-16.0); Mean Corpuscular HGB CONC 32.3 g/dL (32.0-36.0); Mean Corpuscular Hemoglobin 28.4 pg (27.0-31.0); Mean Corpuscular Volume 87.9 fL (78.0-98.0); Mean Platelet Volume 7.6 fL (7.4-10.4); Platelet Count 272 thou/uL (130-400); RBC Distribution Width 12.6 % (11.5-14.5); Red Blood Cell (RBC) Count 4.29 mill/uL (4.20-5.40); White Blood Cell (WBC) Count 7.3 thou/uL (4.8-10.8)
[2018-05-26 10:49] LABS: BHCG - Serum Negative (NEGATIVE); Pregs Control Background? CLEAR/WHITE (CLR/WHITE); Pregs Control Bar Appear? YES (CONTROL BAR)
--- NOTE | 2018-05-26 10:49 | RAD ---
FXR Chest 1 View Portable History: [Pain.] Comparison: Radiograph May 03, 2018 Findings: The lungs are clear. No pneumothorax or effusion. Cardiac silhouette and mediastinal contou rs are within normal limits. Impression: No acute intrathoracic abnormality.
[2018-05-26 10:57] LABS: ALT (SGPT) 16 U/L (8-55); AST (SGOT) 9 U/L (5-34); Alkaline Phosphatase 48 U/L (40-150); Anion Gap 9 mmol/L (10-20); BUN (Urea Nitrogen) 14 mg/dL (7.0-18.7); Bilirubin, Total 0.3 mg/dL (0.2-1.2); Calc. Creatinine Clearance 0 mL/min (70-130); Calcium 9.3 mg/dL (7.8-10.44); Carbon Dioxide 29 mmol/L (22-29); Chloride 105 mmol/L (98-107); Estimated GFR-MDRD Greater than 90; Globulin 2.9 g/dL (2.4-3.5); Glucose 123 mg/dL (70-105); Lipase 12 U/L (8-78); Potassium 3.9 mmol/L (3.5-5.1); Protein, Total 6.9 g/dL (6.0-8.3); Sodium 139 mmol/L (136-145)
== END 2018-05-26 11:23 | disposition home or self-care (01) ==
LOC: ERS 09:12
DX: R10.9 Unspecified abdominal pain (principal); R11.2 Nausea with vomiting, unspecified; E11.9 Type 2 diabetes mellitus without complications; Z86.73 Personal history of transient ischemic attack (TIA), and cerebral infarction without residual deficits; G43.909 Migraine, unspecified, not intractable, without status migrainosus
CPT/HCPCS: 36415; 71045; 80053; 81003; 83690; 84484; 84703; 85025; 93005

== ENCOUNTER 2018-06-04 19:19 | Emergency (ER) | payer MEDICAID | END 2018-06-04 20:01 | disposition home or self-care (01) | LOC: ERS 19:19 | DX: L02.31 Cutaneous abscess of buttock (principal); L03.317 Cellulitis of buttock; E11.9 Type 2 diabetes mellitus without complications; G43.909 Migraine, unspecified, not intractable, without status migrainosus; Z86.73 Personal history of transient ischemic attack (TIA), and cerebral infarction without residual deficits | CPT/HCPCS: 36416; 99283 ==

== ENCOUNTER 2018-06-11 06:49 | Observation (INO) | payer MEDICAID, OTHER ==
[2018-06-11] MEDS ORDERED: Metoclopramide HCl 10 MG/2 ML VIAL ONE (07:32)
[2018-06-11] MEDS ORDERED: diphenhydrAMINE 50 MG/ML VIAL ONE (07:32)
[2018-06-11 07:57] LABS: #Eosinphils 0.3 thou/uL (0.0-0.7); #Lymphocytes 1.9 thou/uL (1.20-3.40); #Monocytes 0.5 thou/uL (0.11-0.59); #Neutrophils 3.5 thou/uL (1.40-6.50); %Basophils 0.4 % (0.0-1.0); %Eosinophils 5.5 % (0.0-10.0); %Lymphocytes 30.8 % (21.0-51.0); %Neutrophils 55.3 % (42.0-75.0); Hemoglobin 12.3 g/dL (12.0-16.0); Mean Corpuscular HGB CONC 31.8 g/dL (32.0-36.0); Mean Corpuscular Volume 88.1 fL (78.0-98.0); Mean Platelet Volume 7.5 fL (7.4-10.4); Platelet Count 332 thou/uL (130-400); RBC Distribution Width 12.7 % (11.5-14.5); White Blood Cell (WBC) Count 6.3 thou/uL (4.8-10.8)
--- NOTE | 2018-06-11 07:57 | CT ---
Exam: CT brain without contrast HISTORY: Headache since Saturday and fever COMPARISON: 08/08/2016 TECHNIQUE: Multiple contiguous axial images were obtained and a CT of the brain without contrast. FINDINGS: The brain is normal in morphology and attenuation without focal lesions or confluent areas of infarction. There is no evidence of hydrocephalus, intracranial hemorrhage, or extra-axial fluid collection. The calvarium and overlying soft tissues are unremarkable. The visualized paranasal sinuses and masto id air cells are well aerated. IMPRESSION: No evidence of acute intracranial abnormality
[2018-06-11 08:08] LABS: BHCG - Serum Negative (NEGATIVE); Pregs Control Background? CLEAR/WHITE (CLR/WHITE); Pregs Control Bar Appear? YES (CONTROL BAR)
[2018-06-11 08:23] LABS: ALT (SGPT) 15 U/L (8-55); AST (SGOT) 10 U/L (5-34); Albumin 3.7 g/dL (3.5-5.0); Alkaline Phosphatase 48 U/L (40-150); Anion Gap 12 mmol/L (10-20); BUN (Urea Nitrogen) 9 mg/dL (7.0-18.7); Bilirubin, Total 0.2 mg/dL (0.2-1.2); Calc. Creatinine Clearance 0 mL/min (70-130); Calcium 9.3 mg/dL (7.8-10.44); Carbon Dioxide 26 mmol/L (22-29); Chloride 104 mmol/L (98-107); Estimated GFR-MDRD Greater than 90; Globulin 3.2 g/dL (2.4-3.5); Glucose 99 mg/dL (70-105); Potassium 4.6 mmol/L (3.5-5.1); Protein, Total 6.9 g/dL (6.0-8.3); Sodium 137 mmol/L (136-145)
[2018-06-11] MEDS ORDERED: Magnesium 2 GM/50 ML BAG (IN WATER) ONE (09:42)
[2018-06-11] MEDS ORDERED: Ketorolac Tromethamine 30 MG/ML VIAL ONE (09:42)
[2018-06-11] MEDS ORDERED: Fentanyl 100 MCG/2 ML VIAL ONE (12:53)
[2018-06-11] MEDS ORDERED: methylPREDNISolone Sod Succ/PF 125 MG/2 ML VIAL ONE (12:56)
[2018-06-11] MEDS ORDERED: Valproate Sodium 500 MG in Sodium Chloride 0.9% 100 ML IVPB SCH (13:30)
[2018-06-11] MEDS ORDERED: Haloperidol Lactate 5 MG/ML VIAL ONE (14:36)
[2018-06-11] MEDS ORDERED: Zolpidem Tartrate 5 MG TAB PO PRN (15:51)
[2018-06-11] MEDS ORDERED: Ondansetron ODT 4 MG TAB PO PRN (15:51)
[2018-06-11] MEDS ORDERED: Dextrose 5% in Water 1,000 ML IV PRN (15:51)
[2018-06-11] MEDS ORDERED: Dextrose 50% Abboject 50 ML SYRINGE SLOW IVP PRN (15:51)
[2018-06-11] MEDS ORDERED: HumaLOG 300 UNITS/3 ML VIAL SC PRN (15:51)
--- NOTE | 2018-06-11 16:37 | HP ---
PRIMARY CARE PROVIDER: Gavi Hankins. Referred to the [facility] Service for intractable headaches. The patient states she has had headache for 3 days. It is her whole head pressure. She states she has some blurred vision with it, some nausea and has vomited a couple of times. She states she has headaches 2 to 3 times a month, takes Tylenol No.3 for them. PAST MEDICAL HISTORY: Multiple admissions in the past for her headaches. The first one I actually admitted her in 2013 with headache and faith numbness. She states she has had mini strokes before. However, she has had four MRIs starting in 2013 and none of them show any evidence of brain injury. She has diabetes mellitus type 2. MEDICATIONS: She takes metformin 500 mg twice a day and oral contraceptive agents. ALLERGIES: SHE HAS NO KNOWN DRUG ALLERGIES. PAST SURGICAL HISTORY: No surgeries. FAMILY HISTORY: No headaches. Mother has diabetes. SOCIAL HISTORY: Single. No alcohol. No drugs. No tobacco. CODE STATUS: Full. REVIEW OF SYSTEMS: GENERAL: Some dizziness with her headache. No fainting. EYES: No double vision, blurred vision, or flashing light. EAR, NOSE, AND THROAT: No ear pain or drainage. No nasal bleeding. No trouble swallowing. CARDIAC: No chest pain, orthopnea, or paroxysmal nocturnal dyspnea. RESPIRATION: No cough, wheezing, or asthma. GASTROINTESTINAL: Some nausea with vomiting with present illness. Otherwise, no abdominal pain, diarrhea, etc. GENITOURINARY: No hematuria, dysuria, or nocturia. MUSCULOSKELETAL: No pain or swelling in her arms or legs. NEUROLOGICAL: She states she has had mini strokes with no residual as I mentioned before, four MRIs at this hospital that are negative. PSYCHIATRIC: No defined diagnosis of psychiatric disease. SKIN: No bruising, bleeding, or rash. HEME/LYMPH: No tender or swollen lymph nodes in axilla, inguinal, or cervical area. PHYSICAL EXAMINATION: GENERAL: She is an obese female, in actually no distress while I came in. VITAL SIGNS: Blood pressure 120/80, pulse 62, respirations 20. She rates the pain as a steady 10. HEENT: Examination of her head, eyes, ears, nose, and throat revealed pupils are equal, round, and reactive to light. Extraocular movements are intact. Sclerae are white. She did not flinch to why I used the penlight to examine her pupils, no reaction whatsoever. Tympanic membranes clear. Nose is clear. Oral mucous membranes wet. NECK: No jugular venous distention, adenopathy, or thyromegaly. CHEST: Clear to auscultation and percussion. HEART: Had a regular rate and rhythm. First and second heart sounds are clear. ABDOMEN: Soft. Bowel sounds are normal. No hepatosplenomegaly. No mass. No rebound. EXTREMITIES: Reveal no cyanosis, clubbing, or edema. PULSES: Carotid, radial, femoral, and dorsalis pedis pulses intact. SKIN: Warm and dry without bruises or rash. HEME/LYMPH: No tender or swollen lymph nodes in axilla, inguinal, or cervical area. NEUROLOGICAL: Cranial nerves 2 through 12 are intact. Deep tendon reflexes symmetric. Toes downgoing. Strength is symmetric. LABORATORY DATA: Brain CT shows no acute intracranial abnormality. CBCs normal. Chem 7 is normal. test is normal. ADMITTING DIAGNOSES: 1. Headache, diabetes mellitus type 2, obesity. 2. Nausea and vomiting. PLAN: Accu-Cheks and sliding scale. IV fluids, 1800 calorie ADA diet. Toradol 30 mg IV q.6 hours p.r.n., Zofran oral dissolving tablets q.6 hours p.r.n., avoid narcotics. Job ID: [id number]
[2018-06-11] MEDS: Ketorolac Tromethamine 30 MG/ML VIAL IVP PRN ×2 (16:49→23:24)
[2018-06-11] MEDS: Sodium Chloride 0.9% 1,000 ML IV SCH (16:49)
[2018-06-11 17:16] VITALS: BMI 43.6
[2018-06-11 17:20] LABS: Amphetamine Not Detected (NotDetected); Benzodiazepine Screen Not Detected (NotDetected); Cocaine Metabolite Screen Not Detected (NotDetected); Medtox Reader # READER 4; Methadone Not Detected (NotDetected); Methamphetamine Not Detected (NotDetected); Opiate Screen Detected (NotDetected); Phencyclidine (PCP) Not Detected (NotDetected); THC/Cannabinoid Screen Not Detected (NotDetected); Tricyclic Screen Not Detected (NotDetected)
[2018-06-11 17:21] LABS: Barbiturates Screen Not Detected (NotDetected); Medtox Control Line Valid? VALID (VALID); Oxycodone Screen Not Detected (NotDetected)
[2018-06-12] MEDS: Sodium Chloride 0.9% 1,000 ML IV SCH ×2 (02:47→14:54)
[2018-06-12] MEDS: Ketorolac Tromethamine 30 MG/ML VIAL IVP PRN ×3 (05:30→23:20)
[2018-06-12 09:28] LABS: #Lymphocytes 1.6 thou/uL (1.20-3.40); #Monocytes 0.5 thou/uL (0.11-0.59); #Neutrophils 9.7 thou/uL (1.40-6.50); %Eosinophils 0.1 % (0.0-10.0); %Lymphocytes 13.4 % (21.0-51.0); %Monocytes 4.4 % (0.0-10.0); %Neutrophils 82.1 % (42.0-75.0); Hemoglobin 11.8 g/dL (12.0-16.0); Mean Corpuscular HGB CONC 32.2 g/dL (32.0-36.0); Mean Corpuscular Hemoglobin 28.8 pg (27.0-31.0); Mean Corpuscular Volume 89.5 fL (78.0-98.0); Mean Platelet Volume 7.4 fL (7.4-10.4); Platelet Count 340 thou/uL (130-400); RBC Distribution Width 12.7 % (11.5-14.5); Red Blood Cell (RBC) Count 4.09 mill/uL (4.20-5.40); White Blood Cell (WBC) Count 11.8 thou/uL (4.8-10.8)
[2018-06-12 09:38] LABS: Anion Gap 12 mmol/L (10-20); BUN (Urea Nitrogen) 8 mg/dL (7.0-18.7); Calc. Creatinine Clearance 204 mL/min (70-130); Calcium 8.9 mg/dL (7.8-10.44); Carbon Dioxide 22 mmol/L (22-29); Chloride 111 mmol/L (98-107); Estimated GFR-MDRD Greater than 90; Glucose 133 mg/dL (70-105); Potassium 3.6 mmol/L (3.5-5.1); Sodium 141 mmol/L (136-145)
[2018-06-12] MEDS: Acetaminophen 325 MG TAB PO PRN ×3 (09:48→20:27)
[2018-06-12] MEDS ORDERED: ISOVUE-370 76%-LOCM 1 ML ONE (10:36)
[2018-06-12 12:12] LABS: Bilirubin Negative (Negative); Blood, Urine Large (Negative); Clarity CLOUDY (Clear); Glucose, Urine (Dipstick) Negative (Negative); Leukocyte Moderate (Negative); Nitrite Negative (Negative); Protein, Urine (Dipstick) Negative (Neg-Trace); Specific Gravity, Urine 1.015 (1.002-1.036)
[2018-06-12 12:14] LABS: Bacteria/HPF 1+ HPF (None Seen); Hyaline Casts/LPF 0-3 HYALINE CAST LPF (0-3 Hyaline); RBC/HPF 0-3 HPF (0-3); Squamous Epithelial 0-3 HPF (0-3); WBC/HPF 21-50 HPF (0-3)
[2018-06-12 12:16] LABS: Yeast-AUWi Flag 88.1 (0-25.0)
[2018-06-12 12:44] LABS: Yeast-All Forms None Seen HPF (None Seen)
[2018-06-12 12:46] LABS: Urine Culture Reflex Yes Yes
--- NOTE | 2018-06-12 14:46 | PDOC.PN ---
- Subjective Encounter Start Date: 06/12/18 Encounter Start Time: 14:42 Subjective: Patient complaining of headache that has been constant. She states it start -: Saturday last week. Denie any associated blurred vision. Reports lack of -: appetite with an episode of vomiting this morning. Has had reduced oral intake but states she was able to eat a taco for lunch. No vomiting since then. No hematemesis. Patient states her boyfriend noticed nodularity in her neck while massaging her to help alleviate her headache. She denies any trauma. States her neck muscles feel tense at times. The headache is diffuse, 8/10, constant. Reports scalp tenderness. Reports a fever at home. No neck stiffness or rigidity. Has not had any vision changes. No chest pain or sob. Complains of constipation x 5 days. No passing gas. Denies abdominal pain or distention. Reports hematuria this morning. Her last menses was a week ago. No vaginal discharge or pain. Denies any flank pain. No dysuria. - Objective Resuscitation Status - Order Detail: 06/11/18 15:45 Resuscitation Status Routine Resuscitation Status: FULL: Full Resuscitation Vital Signs & Weight: Vital Signs (12 hours) Temp Pulse Resp BP Pulse Ox 06/12/18 11:43 98.8 F 60 20 116/67 96 06/12/18 07:33 98 F 69 18 94/52 L 96 06/12/18 02:54 97.8 F 70 15 113/67 96 Weight Weight 233 lb I&O: 06/11/18 06/12/18 06/13/18 06:59 06:59 06:59 Intake Total 1480 1000 Output Total 1100 300 Balance 380 700 Result Diagrams: 06/12/18 09:12 06/12/18 09:12 Additional Labs: Accuchecks 06/12/18 06/12/18 06/11/18 10:58 05:37 21:00 POC Glucose 105 119 H 160 H 06/11/18 16:44 POC Glucose 119 H Phys Exam - Physical Examination Constitutional: NAD found resting comfortably in bed watching a show on her phone. HEENT: PERRLA, moist MMs, sclera anicteric, oral pharynx no lesions Neck: supple, full ROM No lymph nodes but posterior neck notable for subcutaneous nodularity No nuchal rigidity/stiffness Respiratory: clear to auscultation bilateral Cardiovascular: RRR Gastrointestinal: soft, non-tender, no distention, positive bowel sounds Musculoskeletal: no edema Neurological: normal sensation, moves all 4 limbs Psychiatric: normal affect, A&O x 3 Skin: no rash, normal turgor Dx/Plan (1) Nausea & vomiting Code(s): R11.2 - NAUSEA WITH VOMITING, UNSPECIFIED Status: Acute Plan: has resolved. Continue Zofran PRN. (2) Diabetes mellitus Code(s): E11.9 - TYPE 2 DIABETES MELLITUS WITHOUT COMPLICATIONS Status: Chronic Plan: Continue home meds and monitor glucose. (3) Headache Code(s): R51 - HEADACHE Status: Acute Plan: CT soft tissue neck obtained to assess nodularity in cervical region. Headache has been an issue in the past and she was seen by Neuro. Lost to follow-up. Neuro consult placed. (4) Obesity Code(s): E66.9 - OBESITY, UNSPECIFIED Status: Chronic (5) UTI (urinary tract infection) Status: Acute Plan: Started on Ceftriaxone for UTI. Urine culture pending. - Plan cont current plan of care Patients case discussed with Dr. Layne who has seen patient -: and agrees with plan as above. * . Review of Systems - Review of Systems Constitutional: fever (Per patient, no fever documented here), other ( Persistent headache). negative: chills, sweats, weakness, malaise Eyes: negative: Pain, Vision Change, Conjunctivae Inflammation, Eyelid Inflammation, Redness ENT: Throat Pain (No abnormal findings on exam). negative: Ear Pain, Ear Discharge, Nose Pain, Nose Discharge, Nose Congestion, Mouth Pain, Throat Swelling, Other Respiratory: negative: Cough, Dry, Shortness of Breath, Hemoptysis, SOB with Excertion, Pleuritic Pain, Sputum, Wheezing Cardiovascular: negative: chest pain, palpitations, orthopnea, paroxysmal nocturnal dyspnea, edema, light headedness, other Gastrointestinal: Vomiting (vomited with breakfast. Tolrated lunch. ), Constipation (no abodminal distention). negative: Nausea, Abdominal Pain, Diarrhea, Melena, Hematochezia, Other Genitourinary: Hematuria. negative: Dysuria, Frequency, Incontinence, Retention , Other Musculoskeletal: Neck Pain. negative: Shoulder Pain, Arm Pain, Back Pain, Hand Pain, Leg Pain, Foot Pain, Other Skin: negative: Rash, Lesions, Les, Bruising, Other Neurological: negative: Weakness, Numbness, Incoordination, Change in Speech, Confusion, Seizures - Medications/Allergies Allergies/Adverse Reactions: Allergies Allergy/AdvReac Type Severity Reaction Status Date / Time No Known Drug Allergies Allergy Verified 08/08/16 20:02 Medications: Current Medications Acetaminophen (Tylenol) 650 mg PO Q4H PRN PRN Reason: Headache/Fever/Mild Pain (1-3) Last Admin: 06/12/18 09:48 Dose: 650 mg Cefdinir (Omnicef) 300 mg PO BID [facility] Dextrose/Water (Dextrose 50%) 25 gm SLOW IVP PRN PRN PRN Reason: Hypoglycemia Glucagon (Glucagon) 1 mg IM PRN PRN PRN Reason: Hypoglycemia Dextrose/Water (D5w) 1,000 mls @ 0 mls/hr IV .Q0M PRN PRN Reason: Hypoglycemia Insulin Human Lispro (Humalog) 0 units SC .MILD SLIDING SCALE PRN PRN Reason: Mild Correctional Scale Ketorolac Tromethamine (Toradol) 30 mg IVP Q6H PRN PRN Reason: Pain Stop: 06/16/18 15:53 Last Admin: 06/12/18 05:30 Dose: 30 mg Metformin HCl (Glucophage) 1,000 mg PO BID[facility] Ondansetron HCl (Zofran Odt) 4 mg PO Q6H PRN PRN Reason: Nausea/Vomiting Last Admin: 06/11/18 16:49 Dose: 4 mg Pantoprazole Sodium (Protonix) 40 mg PO DAILY [facility] Last Admin: 06/12/18 10:34 Dose: 40 mg Zolpidem Tartrate (Ambien) 5 mg PO HSPRN PRN PRN Reason: Insomnia
[2018-06-12] MEDS: metFORMIN 500 MG TAB PO SCH (16:11)
--- NOTE | 2018-06-12 16:53 | CT ---
CT neck with IV contrast HISTORY: Neck pain. Posterior nodularity. FINDINGS: There is increase in number and conspicuity of nonenlarged lymph nodes along each side of t he neck, including each jugular and spinal accessory chain. Posterior occipital lymph nodes are also visible bilaterally. No focal dominant mass. Visualized salivary glands and the thyroid gland are unremarkable. Airway is patent. A distended azyg os vein is partially visualized in the right mediastinum on the inferior most images. Bovine origin of the great vessels at the aortic arch. IMPRESSION: Reactive appearing lymph nodes of the neck and upper mediastinum. No focal mass or aggres sive adenopathy are apparent.
--- NOTE | 2018-06-12 17:53 | CON ---
DATE OF CONSULTATION: 06/12/2018 CONSULTING PHYSICIAN: Hospitalist Service. IMPRESSION: Probable pseudotumor cerebri. PLAN: 1. Lumbar puncture to measure opening pressure. 2. Topamax 50 mg twice a day. 3. Office followup. HISTORY OF PRESENT ILLNESS: Ms. Richey is a 32-year-old female with a known past history of pseudotumor cerebri. She was evaluated a little over 2 years ago. She had an opening pressure of around 50. She was treated with Diamox, which apparently caused some renal insufficiency. It was subsequently discontinued about a year ago. She started experiencing recurrent headaches recently. She has some transient visual obscurations. She is having some sensation of clogged hearing. She has had some intermittent vomiting with it as well. PAST MEDICAL HISTORY: Otherwise somewhat notable for obesity. FAMILY HISTORY: Noncontributory. ALLERGIES: PER CHART. SOCIAL HISTORY: No tobacco or illicit drug use. MEDICATIONS: None. REVIEW OF SYSTEMS: Ten system review of systems is otherwise negative. PHYSICAL EXAMINATION: GENERAL: She is morbidly obese young woman, in minimal distress. HEENT: Pupils are equal and reactive. Funduscopic exam was attempted, but due to her severe vision problems, I could not get a clear look at the optic nerves. NECK: Supple. NEUROLOGIC: She is alert and appropriate. Her speech is fluent and clear. Exam is nonfocal. Clinical picture appears consistent with pseudotumor cerebri. I could not confirm papilledema on exam due to technical difficulties of her refractive error. Lumbar puncture should likely confirm this. I will be happy to follow up with her as an outpatient. Job ID: [id number]
[2018-06-12] MEDS: Cefdinir 300 MG CAP PO SCH (20:27)
[2018-06-12] MEDS: Topiramate 25 MG TAB PO SCH (20:27)
[2018-06-13] MEDS: Topiramate 25 MG TAB PO SCH ×2 (09:02→20:22)
[2018-06-13] MEDS: Cefdinir 300 MG CAP PO SCH ×2 (09:02→20:22)
[2018-06-13] MEDS: metFORMIN 500 MG TAB PO SCH ×2 (09:03→17:38)
[2018-06-13 10:15] LABS: #Basophils 0.1 thou/uL (0.0-0.2); #Eosinphils 0.1 thou/uL (0.0-0.7); #Lymphocytes 1.8 thou/uL (1.20-3.40); #Monocytes 0.4 thou/uL (0.11-0.59); #Neutrophils 6.3 thou/uL (1.40-6.50); %Basophils 0.6 % (0.0-1.0); %Eosinophils 1.3 % (0.0-10.0); %Lymphocytes 20.7 % (21.0-51.0); %Monocytes 4.7 % (0.0-10.0); %Neutrophils 72.7 % (42.0-75.0); Hemoglobin 12.5 g/dL (12.0-16.0); Mean Corpuscular HGB CONC 32.6 g/dL (32.0-36.0); Mean Corpuscular Hemoglobin 28.8 pg (27.0-31.0); Mean Corpuscular Volume 88.2 fL (78.0-98.0); Mean Platelet Volume 7.5 fL (7.4-10.4); Platelet Count 338 thou/uL (130-400); RBC Distribution Width 12.8 % (11.5-14.5); Red Blood Cell (RBC) Count 4.33 mill/uL (4.20-5.40); White Blood Cell (WBC) Count 8.6 thou/uL (4.8-10.8)
[2018-06-13 10:34] LABS: Anion Gap 11 mmol/L (10-20); BUN (Urea Nitrogen) 10 mg/dL (7.0-18.7); Calc. Creatinine Clearance 204 mL/min (70-130); Calcium 9.3 mg/dL (7.8-10.44); Carbon Dioxide 26 mmol/L (22-29); Chloride 107 mmol/L (98-107); Estimated GFR-MDRD Greater than 90; Glucose 111 mg/dL (70-105); Potassium 3.8 mmol/L (3.5-5.1); Sodium 140 mmol/L (136-145)
--- NOTE | 2018-06-13 12:11 | RAD ---
Fluoroscopic guided lumbar puncture CLINICAL HISTORY: Headache, clinically suspect pseudotumor cerebri PROCEDURE: Informed consent was obtained. Preprocedural fluoroscopic imaging was performed. Patient w as placed in a prone position and the skin of the low back was prepped and draped in a standard sterile fashion. Topical anesthesia was achieved with buffered 1% lidocaine. 20-gauge spinal needle w as then advanced uneventfully into the thecal sac from a posterior para midline approach at the leftL3-4level. Clear colorless CSF was present at the needle hub. CSF pressures were subsequently nadine sured, documented at 24 cm H2O. 15 cc of clear colorless CSF was removed. Imaging was stored for documentation. Needle was removed. Postprocedural CSF pressure was measured and documented at 13 cm H 2O. Patient tolerated the procedure well, without complication evident. FINDINGS: Intraoperative imaging reveals a needle overlying the lumbar spinal canal. Fluoroscopy data: 0.1minutes, 24mcg/sq m IMPRESSION: Technically successful lumbar puncture. Preprocedural CSF pressure documented at 24 cm H2O, and postprocedural CSF pressure measured at 13 cm H2O.
[2018-06-13] MEDS: Ketorolac Tromethamine 30 MG/ML VIAL IVP PRN (15:12)
[2018-06-13] MEDS ORDERED: traMADol HCl 50 MG TAB PO PRN (17:46)
--- NOTE | 2018-06-13 17:49 | PDOC.PN ---
- Subjective Encounter Start Date: 06/13/18 Encounter Start Time: 13:48 Subjective: Patient states she continues with headache but no further vomiting. Has -: tolerated food by mouth. No bowel changes. Denies any fevers, chills or -: sweats. Denies any abdominal pain. No chest pain or palpitations. Scheduled for LP today. - Objective Resuscitation Status - Order Detail: 06/11/18 15:45 Resuscitation Status Routine Resuscitation Status: FULL: Full Resuscitation Vital Signs & Weight: Vital Signs (12 hours) Temp Pulse Resp BP Pulse Ox 06/13/18 15:25 97.5 F L 86 16 119/77 98 06/13/18 11:51 97.9 F 52 L 20 111/59 L 100 06/13/18 07:36 98.2 F 48 L 20 106/51 L 99 Weight Weight 233 lb I&O: 06/12/18 06/13/18 06/14/18 06:59 06:59 06:59 Intake Total 1480 1240 Output Total 1100 700 Balance 380 540 Result Diagrams: 06/13/18 09:53 06/13/18 09:53 Additional Labs: Accuchecks 06/13/18 06/13/18 06/13/18 16:51 11:54 05:55 POC Glucose 97 89 95 06/12/18 20:21 POC Glucose 132 H Phys Exam - Physical Examination Constitutional: NAD Obese HEENT: PERRLA, moist MMs, oral pharynx no lesions Neck: supple, full ROM Respiratory: clear to auscultation bilateral Cardiovascular: RRR Gastrointestinal: soft, non-tender, no distention, positive bowel sounds Musculoskeletal: no edema Neurological: moves all 4 limbs Psychiatric: normal affect, A&O x 3 Skin: no rash Dx/Plan (1) Headache Code(s): R51 - HEADACHE Status: Acute Plan: Seen by Dr. Alexis. Concern for Pseuotumor cerebri. Started on Topamax and scheduled for LP today. Disposition as per Neuro recommendations. (2) UTI (urinary tract infection) Status: Acute Plan: Started on Omnicef. UA + for nitrites, bacteria, WBC and blood. Urine culture shows excess skin justino indicating dirty sample. Patient denies any hematuria or vaginal bleeding, recently ended menses. (3) Nausea & vomiting Code(s): R11.2 - NAUSEA WITH VOMITING, UNSPECIFIED Status: Resolved (4) Diabetes mellitus Code(s): E11.9 - TYPE 2 DIABETES MELLITUS WITHOUT COMPLICATIONS Status: Chronic Plan: Monitor glucose. (5) Obesity Code(s): E66.9 - OBESITY, UNSPECIFIED Status: Chronic - Plan cont current plan of care Discussed with Dr. Layne who agrees with plan as above. * .
[2018-06-13] MEDS: Acetaminophen 325 MG TAB PO PRN (18:19)
[2018-06-14] MEDS: Acetaminophen 325 MG TAB PO PRN ×2 (05:47→09:56)
[2018-06-14] MEDS: Ketorolac Tromethamine 30 MG/ML VIAL IVP PRN ×2 (05:48→12:14)
[2018-06-14] MEDS: Topiramate 25 MG TAB PO SCH (08:33)
[2018-06-14] MEDS: Cefdinir 300 MG CAP PO SCH (08:33)
[2018-06-14] MEDS: metFORMIN 500 MG TAB PO SCH (08:34)
[2018-06-14 08:51] LABS: #Eosinphils 0.2 thou/uL (0.0-0.7); #Lymphocytes 2.2 thou/uL (1.20-3.40); #Monocytes 0.5 thou/uL (0.11-0.59); #Neutrophils 4.3 thou/uL (1.40-6.50); %Basophils 0.5 % (0.0-1.0); %Eosinophils 2.6 % (0.0-10.0); %Lymphocytes 29.8 % (21.0-51.0); %Monocytes 7.5 % (0.0-10.0); %Neutrophils 59.6 % (42.0-75.0); Hemoglobin 12.9 g/dL (12.0-16.0); Mean Corpuscular HGB CONC 32.9 g/dL (32.0-36.0); Mean Corpuscular Hemoglobin 28.6 pg (27.0-31.0); Mean Corpuscular Volume 86.9 fL (78.0-98.0); Mean Platelet Volume 7.8 fL (7.4-10.4); Platelet Count 344 thou/uL (130-400); RBC Distribution Width 12.9 % (11.5-14.5); White Blood Cell (WBC) Count 7.2 thou/uL (4.8-10.8)
[2018-06-14 09:12] LABS: Anion Gap 11 mmol/L (10-20); BUN (Urea Nitrogen) 15 mg/dL (7.0-18.7); Calc. Creatinine Clearance 201 mL/min (70-130); Calcium 9.5 mg/dL (7.8-10.44); Carbon Dioxide 24 mmol/L (22-29); Chloride 109 mmol/L (98-107); Estimated GFR-MDRD Greater than 90; Glucose 97 mg/dL (70-105); Potassium 4.1 mmol/L (3.5-5.1); Sodium 140 mmol/L (136-145)
[2018-06-14 12:17] VITALS: BP 96/51; TEMP 98
--- NOTE | 2018-06-14 22:48 | DIS ---
DATE OF ADMISSION: 06/11/2018 DATE OF DISCHARGE: 06/14/2018 This is MARIO Fuentes dictating a report for Servando Layne MD. CONSULT PHYSICIAN: Dr. Alexis, Neurology. DISCHARGE DIAGNOSES: 1. Suspected pseudotumor cerebri given past history of pseudotumor cerebri. 2. Obesity. 3. Type 2 diabetes mellitus. HOSPITAL COURSE: Ms. Richey is a 32-year-old woman who presented to the emergency department with complaints of intractable headaches. The patient states she had blurred vision with that as well as nausea and vomiting, all of which have settled. She underwent an LP yesterday due to suspected pseudotumor cerebri as per Dr. Alexis's recommendations. She states she has had an increased pressure in her head since then, but denies any pain like what she had on initial admission. She reports having similar issues like this in the past. She is known to have been diagnosed with pseudotumor cerebri 2 years ago, at which time an LP had shown an opening pressure of 50. The patient had been started on Diamox; however due to subsequent renal insufficiency, this was discontinued. The patient was lost to follow up at that time. Lumbar puncture done yesterday showed an opening pressure of 24. According to Dr. Alexis's assessment, it was felt that her clinical picture was consistent with pseudotumor cerebri. Though he requested a lumbar puncture to confirm this, he advised to follow up as an outpatient. He also started her on Topamax 50 mg twice daily. On day of discharge, the patient continues to complain of headache. She has been resting in bed comfortably, not requesting anything for headache. Does not seem to be in any severe distress. She felt some relief with an ice pack given this morning. She did ask if she could return to work immediately after discharge today. 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 She was able to, however, stood up quickly on bed for examination and did not appear to be in any distress. No discomfort when the light was turned on in her room. I offered to give her a work note if she wanted to continue to rest today; however, the patient did not state she needed one and states that she was not sure. She has been tolerating oral intake. REVIEW OF SYSTEMS: All other review of systems apart from those mentioned above in HPI are negative. PHYSICAL EXAMINATION: GENERAL: The patient appears obese, well developed, in no apparent distress. VITAL SIGNS: Temperature 98, pulse 56, respirations 16, O2 saturation 98% on room air, blood pressure 96/51. HEENT: Normocephalic and atraumatic. Pupils are equal, round, and reactive to light. Sclerae are anicteric. Oropharynx is clear. NECK: Supple. LUNGS: Clear to auscultation bilaterally. CARDIAC: Regular rate and rhythm. ABDOMEN: Obese, soft, nontender, nondistended. No guarding or rigidity. EXTREMITIES: No lower limb swelling or edema. LABORATORY DATA: White blood cell count 7.3, hemoglobin 12.9, hematocrit 39.1, platelets 344. Sodium 140, potassium 4.1, chloride 109, carbon dioxide 24, anion gap 11, BUN 15, creatinine 0.67, GFR greater than 90, glucose 77, calcium 9.5. UA showed large blood, leukocyte esterase, 21 to 50 red blood cells, 1+ bacteria. Urine culture done and showed greater than 100,000 mixed skin justino. Appears to contain 3 more different organisms indicating contamination. IMAGING DATA: 1. CT brain, 06/11/2018. No evidence of acute intracranial abnormality. 2. CT soft tissue neck, 06/12/2018. Reactive appearing lymph nodes of the neck and upper mediastinum. No focal mass or aggressive adenopathy apparent. PROCEDURES: Lumbar puncture. Preprocedural CSF pressure was 24 and postprocedural CSF pressure measured at 13. 15 mL of clear colorless CSF removed. CONDITION: Stable at discharge. ACTIVITY: As tolerated. DIET: Diabetic diet. FOLLOWUP: 1. The patient was advised by Dr. Alexis to follow up with him as an outpatient. 2. The patient was advised to follow up with her primary care physician within one week. DISCHARGE MEDICATIONS: 1. Prescription provided for Omnicef, 5-day course. 2. Prescription provided for Topamax 50 mg by mouth twice daily as per Dr. Alexis's recommendations. 3. Given the fact that we are treating her with cefdinir, she was advised not to resume the Bactrim she has listed on her home medications. Otherwise, we will resume regular home medications. DISPOSITION: The patient medically cleared for discharge home on 06/14/2018. The patient was seen and discussed with Dr. Layne, who agrees with plan of care as described above. Job ID: [id number]
== END 2018-06-14 14:40 | disposition home or self-care (01) ==
LOC: ERS 06:49 → 2SW 15:18
PROVIDERS: ADMIT Internal Medicine; ATTEND Internal Medicine
PROC: 00JU3ZZ Inspection of Spinal Canal, Percutaneous Approach (ICD-10-PCS; principal; 2018-06-13)
DX: R51 Headache (principal); E11.9 Type 2 diabetes mellitus without complications; R11.2 Nausea with vomiting, unspecified; N39.0 Urinary tract infection, site not specified; E66.9 Obesity, unspecified; Z68.41 Body mass index [BMI] 40.0-44.9, adult; Z79.84 Long term (current) use of oral hypoglycemic drugs; Z79.899 Other long term (current) drug therapy; Z86.73 Personal history of transient ischemic attack (TIA), and cerebral infarction without residual deficits; Z79.3 Long term (current) use of hormonal contraceptives
CPT/HCPCS: 36415; 36416; 62270; 70450; 70491; 80048; 80053; 80306; 81001; 84703; 85025; 87086; 93005; 96361; 96365; 96367; 96375; 96376; G0378; J1200; J1630; J1885; J2765; J2930; J3010; J3475; J3490; Q0162; Q9966

== ENCOUNTER 2018-07-19 20:50 | Emergency (ER) | payer OTHER ==
[2018-07-19 22:10] LABS: #Basophils 0.1 thou/uL (0.0-0.2); #Eosinphils 0.2 thou/uL (0.0-0.7); #Lymphocytes 1.8 thou/uL (1.20-3.40); #Monocytes 0.6 thou/uL (0.11-0.59); #Neutrophils 5.6 thou/uL (1.40-6.50); %Basophils 0.8 % (0.0-1.0); %Eosinophils 2.1 % (0.0-10.0); %Lymphocytes 21.5 % (21.0-51.0); %Monocytes 7.8 % (0.0-10.0); %Neutrophils 67.9 % (42.0-75.0); Hemoglobin 11.2 g/dL (12.0-16.0); Mean Corpuscular HGB CONC 32.7 g/dL (32.0-36.0); Mean Corpuscular Hemoglobin 29.1 pg (27.0-31.0); Mean Corpuscular Volume 88.8 fL (78.0-98.0); Platelet Count 271 thou/uL (130-400); RBC Distribution Width 13.3 % (11.5-14.5); Red Blood Cell (RBC) Count 3.87 mill/uL (4.20-5.40); White Blood Cell (WBC) Count 8.2 thou/uL (4.8-10.8)
[2018-07-19] MEDS ORDERED: Metoclopramide HCl 10 MG/2 ML VIAL ONE (22:15)
[2018-07-19] MEDS ORDERED: Acetaminophen 500 MG TAB ONE (22:15)
[2018-07-19] MEDS ORDERED: diphenhydrAMINE 50 MG/ML VIAL ONE (22:15)
[2018-07-19 22:34] LABS: ALT (SGPT) 21 U/L (8-55); AST (SGOT) 11 U/L (5-34); Albumin 3.9 g/dL (3.5-5.0); Alkaline Phosphatase 50 U/L (40-150); Anion Gap 13 mmol/L (10-20); BUN (Urea Nitrogen) 17 mg/dL (7.0-18.7); Bilirubin, Total 0.2 mg/dL (0.2-1.2); Calc. Creatinine Clearance 0 mL/min (70-130); Carbon Dioxide 23 mmol/L (22-29); Chloride 108 mmol/L (98-107); Estimated GFR-MDRD 80; Globulin 2.6 g/dL (2.4-3.5); Glucose 100 mg/dL (70-105); Potassium 3.5 mmol/L (3.5-5.1); Protein, Total 6.5 g/dL (6.0-8.3); Sodium 140 mmol/L (136-145)
[2018-07-19 22:36] LABS: Bilirubin Negative (Negative); Blood, Urine Negative (Negative); Clarity CLEAR (Clear); Glucose, Urine (Dipstick) Negative (Negative); Leukocyte Negative (Negative); Nitrite Negative (Negative); Protein, Urine (Dipstick) 30 mg/dL (Neg-Trace); Specific Gravity, Urine 1.044 (1.002-1.036); Urobilinogen 0.2 mg/dL (0.2-1.0); pH, Urine 5.5 (5.0-9.0)
[2018-07-19 22:37] LABS: Bacteria/HPF None Seen HPF (None Seen); Hyaline Casts/LPF 0-3 HYALINE CAST LPF (0-3 Hyaline); Pathc Cast-AUWi Flag 0.13 (0-2.49); Squamous Epithelial 0-3 HPF (0-3); WBC/HPF 0-3 HPF (0-3)
== END 2018-07-20 00:55 ==
LOC: ERS 20:50
DX: M54.5 Low back pain (principal); R51 Headache; R73.03 Prediabetes; Z86.73 Personal history of transient ischemic attack (TIA), and cerebral infarction without residual deficits; Z79.899 Other long term (current) drug therapy
CPT/HCPCS: 36415; 80053; 81001; 85025; 96365; 96375; J1200; J2765

== ENCOUNTER 2018-08-28 11:24 | Emergency (ER) | payer OTHER ==
[2018-08-28] MEDS ORDERED: Metoclopramide HCl 10 MG/2 ML VIAL ONE (11:56)
[2018-08-28] MEDS ORDERED: diphenhydrAMINE 50 MG/ML VIAL ONE (11:56)
[2018-08-28] MEDS ORDERED: Ketorolac Tromethamine 30 MG/ML VIAL ONE (11:56)
== END 2018-08-28 14:14 | disposition home or self-care (01) ==
LOC: ERS 11:24
DX: R51 Headache (principal); R73.03 Prediabetes; Z86.73 Personal history of transient ischemic attack (TIA), and cerebral infarction without residual deficits
CPT/HCPCS: 96365; 96375; J1200; J1885; J2765

== ENCOUNTER 2018-09-13 10:15 | Emergency (ER) | payer OTHER | END 2018-09-13 10:50 | disposition home or self-care (01) | LOC: ERS 10:15 | DX: R10.9 Unspecified abdominal pain (principal); G89.29 Other chronic pain; E11.9 Type 2 diabetes mellitus without complications; G43.909 Migraine, unspecified, not intractable, without status migrainosus; Z86.73 Personal history of transient ischemic attack (TIA), and cerebral infarction without residual deficits; Z79.899 Other long term (current) drug therapy | CPT/HCPCS: 99283 ==

== ENCOUNTER 2019-01-15 19:33 | Emergency (ER) | payer OTHER ==
[2019-01-15 20:32] LABS: Bacteria/HPF None Seen HPF (None Seen); Bilirubin Negative (Negative); Blood, Urine 1+ (Negative); Clarity Clear (Clear); Glucose, Urine (Dipstick) Normal (Negative); Leukocyte 25 Leu/uL (Negative); Nitrite Negative (Negative); Protein, Urine (Dipstick) 10 mg/dL (Neg-Trace); Squamous Epithelial 0-3 HPF (0-3); Urobilinogen Normal mg/dL (Less than 2); WBC/HPF 0-3 HPF (0-3)
[2019-01-15 20:40] LABS: #Eosinphils 0.4 thou/uL (0.0-0.7); #Lymphocytes 2.2 thou/uL (1.20-3.40); #Monocytes 0.8 thou/uL (0.11-0.59); #Neutrophils 6.5 thou/uL (1.40-6.50); %Basophils 0.3 % (0.0-1.0); %Monocytes 7.7 % (0.0-10.0); Hemoglobin 12.7 g/dL (12.0-16.0); Mean Corpuscular HGB CONC 32.2 g/dL (32.0-36.0); Mean Corpuscular Volume 86.9 fL (78.0-98.0); Mean Platelet Volume 7.9 fL (7.4-10.4); Platelet Count 278 thou/uL (130-400); Red Blood Cell (RBC) Count 4.55 mill/uL (4.20-5.40); White Blood Cell (WBC) Count 9.8 thou/uL (4.8-10.8)
[2019-01-15 20:57] LABS: ALT (SGPT) 14 U/L (8-55); AST (SGOT) 8 U/L (5-34); Albumin 4.2 g/dL (3.5-5.0); Alkaline Phosphatase 62 U/L (40-110); Anion Gap 12 mmol/L (10-20); BUN (Urea Nitrogen) 17 mg/dL (7.0-18.7); Bilirubin, Total 0.2 mg/dL (0.2-1.2); Calc. Creatinine Clearance 0 mL/min (70-130); Calcium 9.5 mg/dL (7.8-10.44); Carbon Dioxide 27 mmol/L (22-29); Chloride 103 mmol/L (98-107); Estimated GFR-MDRD 83; Globulin 3.3 g/dL (2.4-3.5); Glucose 98 mg/dL (70-105); Lipase 24 U/L (8-78); Potassium 3.9 mmol/L (3.5-5.1); Protein, Total 7.5 g/dL (6.0-8.3); Sodium 138 mmol/L (136-145)
[2019-01-15] MEDS ORDERED: Ondansetron ODT 8 MG TAB ONE (23:26)
== END 2019-01-15 23:50 | disposition home or self-care (01) ==
LOC: ERS 19:33
DX: R10.11 Right upper quadrant pain (principal); R11.10 Vomiting, unspecified; Z86.73 Personal history of transient ischemic attack (TIA), and cerebral infarction without residual deficits; Z79.899 Other long term (current) drug therapy
CPT/HCPCS: 36415; 80053; 81003; 81015; 83690; 85025; 96372; 99284; J0500

== ENCOUNTER 2019-02-22 17:15 | Emergency (ER) | payer OTHER ==
[~2019-02-22 17:15] MED LIST changes: -ISOVUE-370 76%-LOCM 1 ML ONE; +Iopamidol-370 76% 500 ML 1 ML ONE
[2019-02-22 18:29] LABS: Bacteria/HPF None Seen HPF (None Seen); Bilirubin Negative (Negative); Blood, Urine Trace (Negative); Clarity Clear (Clear); Glucose, Urine (Dipstick) Normal (Negative); Leukocyte Negative Leu/uL (Negative); Nitrite Negative (Negative); Protein, Urine (Dipstick) Negative (Neg-Trace); RBC/HPF 0-3 HPF (0-3); Squamous Epithelial 0-3 HPF (0-3); Urobilinogen Normal mg/dL (Less than 2); WBC/HPF 0-3 HPF (0-3)
[2019-02-22 18:31] LABS: Pregnancy Test - Urine (BHCG) Negative (Negative); Pregu Control Background? CLEAR/WHITE (CLR/WHITE); Pregu Control Bar Appear? YES (CONTROL BAR); Specific Gravity 1.025 (1.002-1.036)
[2019-02-22 18:34] LABS: Sperm/HPF 1+ HPF (None Seen)
[2019-02-22 18:53] LABS: #Basophils 0.1 thou/uL (0.0-0.2); #Eosinphils 0.3 thou/uL (0.0-0.7); #Lymphocytes 2.2 thou/uL (1.20-3.40); #Monocytes 0.7 thou/uL (0.11-0.59); #Neutrophils 6.2 thou/uL (1.40-6.50); %Basophils 0.7 % (0.0-1.0); %Eosinophils 2.8 % (0.0-10.0); %Lymphocytes 23.8 % (21.0-51.0); %Monocytes 7.1 % (0.0-10.0); %Neutrophils 65.6 % (42.0-75.0); Hemoglobin 12.1 g/dL (12.0-16.0); Mean Corpuscular HGB CONC 33.4 g/dL (32.0-36.0); Mean Corpuscular Hemoglobin 28.8 pg (27.0-31.0); Mean Corpuscular Volume 86.5 fL (78.0-98.0); Mean Platelet Volume 7.6 fL (7.4-10.4); Platelet Count 262 thou/uL (130-400); RBC Distribution Width 12.9 % (11.5-14.5); Red Blood Cell (RBC) Count 4.18 mill/uL (4.20-5.40); White Blood Cell (WBC) Count 9.4 thou/uL (4.8-10.8)
[2019-02-22] MEDS ORDERED: Haloperidol Lactate 5 MG/ML VIAL ONE (19:01)
[2019-02-22 19:12] LABS: ALT (SGPT) 12 U/L (8-55); AST (SGOT) 8 U/L (5-34); Alkaline Phosphatase 65 U/L (40-110); Anion Gap 12 mmol/L (10-20); BUN (Urea Nitrogen) 17 mg/dL (7.0-18.7); Bilirubin, Total Less than 0.2 mg/dL (0.2-1.2); Calc. Creatinine Clearance 0 mL/min (70-130); Calcium 9.3 mg/dL (7.8-10.44); Carbon Dioxide 25 mmol/L (22-29); Chloride 108 mmol/L (98-107); Estimated GFR-MDRD Greater than 90; Glucose 105 mg/dL (70-105); Lipase 19 U/L (8-78); Potassium 3.8 mmol/L (3.5-5.1); Sodium 141 mmol/L (136-145)
[2019-02-22] MEDS ORDERED: Acetaminophen 500 MG TAB ONE (19:35)
[2019-02-22] MEDS ORDERED: diphenhydrAMINE 50 MG/ML VIAL ONE (19:35)
[2019-02-22] MEDS ORDERED: Ketorolac Tromethamine 30 MG/ML VIAL ONE (19:35)
[2019-02-22] MEDS ORDERED: Dexamethasone 10 MG/ML VIAL ONE (19:37)
[2019-02-22] MEDS ORDERED: Lidocaine Viscous Sol 2% 15 ml UD Cup ONE (20:46)
[2019-02-22] MEDS ORDERED: Mag-Al 1200 mg/1200 mg/30 ML UDCUP ONE (20:46)
--- NOTE | 2019-02-22 20:54 | CT ---
CT of the abdomen and pelvis: 02/22/2019 COMPARISON: 03/18/2018 HISTORY: Abdominal pain,. Umbilical pain TECHNIQUE: Axial CT imaging at 5 mm intervals from the lung bases to the pubic symphysis with IV cont rast. Coronal and sagittal reformatted imaging obtained. FINDINGS: Visualized lung bases are grossly unremarkable. The superior aspect of the liver dome is no t fully imaged on this exam. Imaged portions of the liver appear unremarkable. The gallbladder, spleen, pancreas, adrenal glands, and kidneys appear grossly unremarkable. The lack of oral contrast media limits assessment of the bowel. There is no evidence for bowel inflammatory change or obstruction. The appendix appears unremarkable. The vascular structures of the abdomen/pelvis appear unremarkable. No lymphadenopathy is noted within the abdomen/pelvis. No acute osseous abnormality. Stable sclerosis noted at the level of the s acroiliac joint on the right suggesting stable unilateral right-sided sacroiliitis. IMPRESSION: No evidence for appendicitis.
== END 2019-02-22 21:50 | disposition home or self-care (01) ==
LOC: ERS 17:15
DX: R10.9 Unspecified abdominal pain (principal); R51 Headache; Z86.73 Personal history of transient ischemic attack (TIA), and cerebral infarction without residual deficits
CPT/HCPCS: 36415; 74177; 80053; 81003; 81015; 81025; 83690; 85025; 93005; 96361; 96374; 96375; J1100; J1200; J1630; J1885; Q9967

== ENCOUNTER 2019-03-13 17:51 | Emergency (ER) | payer OTHER ==
[2019-03-13 19:40] LABS: Bacteria/HPF None Seen HPF (None Seen); Bilirubin Negative (Negative); Blood, Urine Negative (Negative); Clarity Clear (Clear); Glucose, Urine (Dipstick) Normal (Negative); Leukocyte 25 Leu/uL (Negative); Nitrite Negative (Negative); Pregnancy Test - Urine (BHCG) Negative (Negative); Pregu Control Background? CLEAR/WHITE (CLR/WHITE); Pregu Control Bar Appear? YES (CONTROL BAR); Protein, Urine (Dipstick) Negative (Neg-Trace); RBC/HPF 0-3 HPF (0-3); Specific Gravity 1.028 (1.002-1.036); Squamous Epithelial 0-3 HPF (0-3); Urobilinogen Normal mg/dL (Less than 2); WBC/HPF 0-3 HPF (0-3)
[2019-03-13] MEDS ORDERED: Ketorolac Tromethamine 30 MG/ML VIAL ONE (20:03)
[2019-03-13] MEDS ORDERED: Ondansetron PF 4 MG/2 ML Vial ONE (20:03)
[2019-03-13 20:21] LABS: ALT (SGPT) 16 U/L (8-55); AST (SGOT) 10 U/L (5-34); Albumin 3.9 g/dL (3.5-5.0); Alkaline Phosphatase 66 U/L (40-110); Anion Gap 16 mmol/L (10-20); BUN (Urea Nitrogen) 12 mg/dL (7.0-18.7); Bilirubin, Total 0.3 mg/dL (0.2-1.2); Calc. Creatinine Clearance 0 mL/min (70-130); Calcium 9.4 mg/dL (7.8-10.44); Carbon Dioxide 20 mmol/L (22-29); Chloride 106 mmol/L (98-107); Estimated GFR-MDRD Greater than 90; Globulin 3.3 g/dL (2.4-3.5); Glucose 97 mg/dL (70-105); Lipase 19 U/L (8-78); Potassium 4.2 mmol/L (3.5-5.1); Protein, Total 7.2 g/dL (6.0-8.3); Sodium 138 mmol/L (136-145)
[2019-03-13 20:29] LABS: #Eosinphils 0.3 thou/uL (0.0-0.7); #Lymphocytes 2.2 thou/uL (1.20-3.40); #Monocytes 0.8 thou/uL (0.11-0.59); #Neutrophils 6.6 thou/uL (1.40-6.50); %Basophils 0.1 % (0.0-1.0); %Eosinophils 3.3 % (0.0-10.0); %Lymphocytes 22.2 % (21.0-51.0); %Monocytes 7.7 % (0.0-10.0); %Neutrophils 66.8 % (42.0-75.0); Hemoglobin 12.5 g/dL (12.0-16.0); Mean Corpuscular Hemoglobin 28.5 pg (27.0-31.0); Mean Corpuscular Volume 86.5 fL (78.0-98.0); Platelet Count 267 thou/uL (130-400); RBC Distribution Width 13.2 % (11.5-14.5); Red Blood Cell (RBC) Count 4.36 mill/uL (4.20-5.40); White Blood Cell (WBC) Count 9.9 thou/uL (4.8-10.8)
[2019-03-13] MEDS ORDERED: Lidocaine 4% Cream 5 GM TUBE w/ Tegaderm ONE (21:14)
--- NOTE | 2019-03-13 21:42 | CT ---
CT ABDOMEN WITH CONTRAST CT PELVIS WITH CONTRAST: DATE: 03/13/2019 HISTORY: 33-year-old female with right lower quadrant abdominal pain. COMPARISON: 02/22/2019 TECHNIQUE: IV injection of iodinated contrast media: administered. Oral contrast media:Not administered FINDINGS: No interval change in the broad regions of sclerosis around the right SI joint, both the iliac and sa cral sides. Normal appendix, kidneys, urinary bladder, abdominal aorta, adrenals, pancreas, liver, and spleen. No pleural effusion, ascites, pneumoperitoneum, small bowel dilation, or colonic diverticulitis. No p ericholecystic edema or gallbladder mural thickening. The only interval change is 2.5 x 2.5 x 2 cm moderately low attenuation structure in the right adnexa now, perhaps ovarian cyst. IMPRESSION: 1) right-sided sacroiliitis 2) normal appendix.
[2019-03-13] MEDS ORDERED: Aspirin Chewable 81 MG TAB ONE (23:39)
== END 2019-03-13 22:10 | disposition home or self-care (01) ==
LOC: ERS 17:51
DX: N83.201 Unspecified ovarian cyst, right side (principal); L02.414 Cutaneous abscess of left upper limb; R73.03 Prediabetes; G43.909 Migraine, unspecified, not intractable, without status migrainosus; Z86.73 Personal history of transient ischemic attack (TIA), and cerebral infarction without residual deficits
CPT/HCPCS: 10060; 36415; 74177; 80053; 81003; 81015; 81025; 83690; 85025; 96361; 96374; 96375; J1885; J2405; Q9967

== ENCOUNTER 2019-03-21 15:14 | Emergency (ER) | payer OTHER ==
--- NOTE | 2019-03-21 15:32 | RAD ---
EXAM: Chest 2 views: HISTORY: Right-sided chest pain COMPARISON: 03/05/2017 FINDINGS: There is a normal-sized cardiomediastinal silhouette. There is no evidence of consolidation, mass, or pleural effusion. The bones are unremarkable. IMPRESSION: No evidence of acute cardiopulmonary disease
[2019-03-21 16:42] LABS: Bilirubin Negative (Negative); Blood, Urine Negative (Negative); Clarity Clear (Clear); Glucose, Urine (Dipstick) Normal (Negative); Leukocyte Negative Leu/uL (Negative); Nitrite Negative (Negative); Protein, Urine (Dipstick) Negative (Neg-Trace); Urobilinogen Normal mg/dL (Less than 2)
[2019-03-21 16:43] LABS: Pregnancy Test - Urine (BHCG) Negative (Negative); Pregu Control Background? CLEAR/WHITE (CLR/WHITE); Pregu Control Bar Appear? YES (CONTROL BAR); Specific Gravity 1.028 (1.002-1.036)
[2019-03-21 18:04] LABS: #Eosinphils 0.3 thou/uL (0.0-0.7); #Lymphocytes 2.2 thou/uL (1.20-3.40); #Monocytes 0.6 thou/uL (0.11-0.59); #Neutrophils 6.6 thou/uL (1.40-6.50); %Basophils 0.2 % (0.0-1.0); %Eosinophils 3.3 % (0.0-10.0); %Lymphocytes 22.3 % (21.0-51.0); %Monocytes 6.3 % (0.0-10.0); %Neutrophils 67.8 % (42.0-75.0); Hemoglobin 12.8 g/dL (12.0-16.0); Mean Corpuscular HGB CONC 32.8 g/dL (32.0-36.0); Mean Corpuscular Hemoglobin 28.7 pg (27.0-31.0); Mean Corpuscular Volume 87.4 fL (78.0-98.0); Mean Platelet Volume 8.2 fL (7.4-10.4); Platelet Count 259 thou/uL (130-400); RBC Distribution Width 13.1 % (11.5-14.5); Red Blood Cell (RBC) Count 4.45 mill/uL (4.20-5.40); White Blood Cell (WBC) Count 9.8 thou/uL (4.8-10.8)
[2019-03-21] MEDS ORDERED: Dicyclomine 20 MG TAB ONE (18:07)
[2019-03-21 18:27] LABS: ALT (SGPT) 18 U/L (8-55); AST (SGOT) 11 U/L (5-34); Albumin 4.2 g/dL (3.5-5.0); Alkaline Phosphatase 57 U/L (40-110); Anion Gap 16 mmol/L (10-20); BUN (Urea Nitrogen) 15 mg/dL (7.0-18.7); Bilirubin, Total 0.2 mg/dL (0.2-1.2); Calc. Creatinine Clearance 0 mL/min (70-130); Calcium 9.6 mg/dL (7.8-10.44); Carbon Dioxide 23 mmol/L (22-29); Chloride 105 mmol/L (98-107); Estimated GFR-MDRD 86; Globulin 3.3 g/dL (2.4-3.5); Glucose 111 mg/dL (70-105); Lipase 25 U/L (8-78); Potassium 3.7 mmol/L (3.5-5.1); Protein, Total 7.5 g/dL (6.0-8.3); Sodium 140 mmol/L (136-145)
[2019-03-21] MEDS ORDERED: Ketorolac Tromethamine 30 MG/ML VIAL ONE (18:58)
[2019-03-21] MEDS ORDERED: Morphine 4 MG/ML VIAL ONE (18:58)
--- NOTE | 2019-03-21 20:20 | ULT ---
PELVIC ULTRASOUND: 03/21/19 COMPARISON: CT abdomen/pelvis 03/13/19. HISTORY: Pelvic pain. Evaluation for torsion or intra-abdominal/pelvic abscess. Possible cyst seen on prior CT . TECHNIQUE: Multiplanar vines scale and color Doppler images were obtained in a transabdominal pelvic ultrasound. Spectral analysis of the Doppler waveforms of the ovaries were performed. FINDINGS: The uterus is normal in size and appearance without focal abnormality. The endometrial stripe is norm al measuring 10 mm. A small amount of free fluid is seen in the pelvis. Both ovaries are normal in size and appearance. T here is possibly a recently ovulated follicle in the right ovary where the follicle appears slightly irregular in appearance. IMPRESSION: No suspicious pelvic abnormality. POS: [facility]
[2019-03-24 19:31] LABS: Chlamydia by PCR Not Detected (NotDetected); GC by PCR Not Detected (NotDetected)
== END 2019-03-21 20:43 | disposition home or self-care (01) ==
LOC: ERS 15:14
DX: R10.31 Right lower quadrant pain (principal); R11.2 Nausea with vomiting, unspecified; E11.9 Type 2 diabetes mellitus without complications; Z86.73 Personal history of transient ischemic attack (TIA), and cerebral infarction without residual deficits
CPT/HCPCS: 36415; 71046; 76856; 80053; 81003; 81025; 82274; 83690; 85025; 87491; 87591; 96372; J1885; J2270

== ENCOUNTER 2019-04-04 16:14 | Emergency (ER) | payer OTHER ==
[2019-04-04 17:03] LABS: Bacteria/HPF None Seen HPF (None Seen); Bilirubin Negative (Negative); Blood, Urine Negative (Negative); Clarity Clear (Clear); Glucose, Urine (Dipstick) Normal (Negative); Leukocyte 25 Leu/uL (Negative); Mucous/LPF Rare LPF (<2+); Nitrite Negative (Negative); Protein, Urine (Dipstick) 30 mg/dL (Neg-Trace); RBC/HPF 0-3 HPF (0-3); WBC/HPF 0-3 HPF (0-3)
== END 2019-04-04 17:14 | disposition home or self-care (01) ==
LOC: ERS 16:14
DX: B34.9 Viral infection, unspecified (principal); E11.9 Type 2 diabetes mellitus without complications; G43.909 Migraine, unspecified, not intractable, without status migrainosus; Z86.73 Personal history of transient ischemic attack (TIA), and cerebral infarction without residual deficits
CPT/HCPCS: 81003; 81015; 87804; 99283

== ENCOUNTER 2019-05-02 10:18 | Emergency (ER) | payer OTHER ==
[2019-05-02 11:24] LABS: #Basophils 0.1 thou/uL (0.0-0.2); #Eosinphils 0.3 thou/uL (0.0-0.7); #Lymphocytes 1.7 thou/uL (1.20-3.40); #Monocytes 0.6 thou/uL (0.11-0.59); #Neutrophils 4.5 thou/uL (1.40-6.50); %Basophils 0.7 % (0.0-1.0); %Eosinophils 3.6 % (0.0-10.0); %Lymphocytes 24.1 % (21.0-51.0); %Monocytes 7.9 % (0.0-10.0); %Neutrophils 63.6 % (42.0-75.0); Hemoglobin 12.6 g/dL (12.0-16.0); Mean Corpuscular HGB CONC 33.3 g/dL (32.0-36.0); Mean Corpuscular Hemoglobin 29.2 pg (27.0-31.0); Mean Corpuscular Volume 87.8 fL (78.0-98.0); Mean Platelet Volume 7.7 fL (7.4-10.4); Platelet Count 281 thou/uL (130-400); Red Blood Cell (RBC) Count 4.31 mill/uL (4.20-5.40)
[2019-05-02] MEDS ORDERED: Ondansetron PF 4 MG/2 ML Vial ONE (11:25)
[2019-05-02] MEDS ORDERED: Morphine 4 MG/ML VIAL ONE (11:25)
[2019-05-02 11:28] LABS: BHCG - Serum Negative (NEGATIVE); Pregs Control Background? CLEAR/WHITE (CLR/WHITE); Pregs Control Bar Appear? YES (CONTROL BAR)
[2019-05-02 11:43] LABS: ALT (SGPT) 14 U/L (8-55); AST (SGOT) 9 U/L (5-34); Alkaline Phosphatase 50 U/L (40-110); Anion Gap 11 mmol/L (10-20); BUN (Urea Nitrogen) 9 mg/dL (7.0-18.7); Bilirubin, Total 0.4 mg/dL (0.2-1.2); Calc. Creatinine Clearance 0 mL/min (70-130); Calcium 9.3 mg/dL (7.8-10.44); Carbon Dioxide 27 mmol/L (22-29); Chloride 103 mmol/L (98-107); Estimated GFR-MDRD Greater than 90; Globulin 2.8 g/dL (2.4-3.5); Glucose 96 mg/dL (70-105); Lipase 16 U/L (8-78); Potassium 3.9 mmol/L (3.5-5.1); Protein, Total 6.8 g/dL (6.0-8.3); Sodium 137 mmol/L (136-145)
[2019-05-02 12:01] LABS: Bacteria/HPF 1+ HPF (None Seen); Bilirubin Negative (Negative); Blood, Urine Negative (Negative); Clarity Clear (Clear); Glucose, Urine (Dipstick) Normal (Negative); Leukocyte 75 Leu/uL (Negative); Nitrite Negative (Negative); Protein, Urine (Dipstick) Negative (Neg-Trace); RBC/HPF 0-3 HPF (0-3); Urobilinogen Normal mg/dL (Less than 2); WBC/HPF 0-3 HPF (0-3)
--- NOTE | 2019-05-02 12:21 | CT ---
CT ABDOMEN AND PELVIS WITH IV CONTRAST: HISTORY: Abdominal pain, right lower quadrant pain, nausea, and vomiting. COMPARISON: 03/13/2019. FINDINGS: The lung bases are clear. The liver, spleen, pancreas, adrenal glands, and kidneys are normal. No c alcified gallstones are seen. The small bowel loops are not abnormally dilated. A normal-appearing appendix is seen. No free air, free fluid, or lymphadenopathy is seen in the abdomen or pelvis. Uterus and ovaries are present. Ch anges of right-side sacroiliitis are again seen. IMPRESSION: No evidence of acute appendicitis. POS: [facility]
[2019-05-02] MEDS ORDERED: Ketorolac Tromethamine 30 MG/ML VIAL ONE (12:53)
--- NOTE | 2019-05-02 13:45 | ULT ---
EXAM: Transabdominal and transvaginal pelvic ultrasound with Doppler PROVIDED CLINICAL HISTORY: Pelvic pain COMPARISON: 01/24/2018 FINDINGS: The uterus measures approximately 7.7 x 3.7 x 5.4 cm and demonstrates a normal sonographic appearance . Uterine endometrial thickness is 4 mm. Right ovary measures approximately 3.1 x 2.4 x 2.4 cm and demonstrates a normal sonographic appearanc e. A 2.2 cm presumably physiologic right ovarian cyst is seen. Left ovary measures approximately 2.4 x 1.8 x 2.1 cmdemonstrates a normal sonographic appearance. Grayscale and color Doppler sonography with spectral analysis of the ovarian waveforms demonstrates n ormal flow bilaterally. There is no evidence for free pelvic fluid. IMPRESSION: No evidence for an acute process.
[2019-05-02] MEDS ORDERED: Iopamidol-370 76% 500 ML 1 ML ONE (14:17)
== END 2019-05-02 14:31 | disposition home or self-care (01) ==
LOC: ERS 10:18
DX: R10.31 Right lower quadrant pain (principal); R11.2 Nausea with vomiting, unspecified; G43.909 Migraine, unspecified, not intractable, without status migrainosus; Z86.73 Personal history of transient ischemic attack (TIA), and cerebral infarction without residual deficits; Z79.899 Other long term (current) drug therapy
CPT/HCPCS: 74177; 76856; 80053; 81003; 81015; 83690; 84703; 85025; 96361; 96374; 96375; J1885; J2270; J2405; Q9967

== ENCOUNTER 2019-07-03 18:14 | Emergency (ER) | payer OTHER ==
[2019-07-03] MEDS ORDERED: Acetaminophen 500 MG TAB ONE (18:49)
[2019-07-03] MEDS ORDERED: Ketorolac Tromethamine 30 MG/ML VIAL ONE (18:49)
[2019-07-03 19:29] LABS: #Eosinphils 0.3 thou/uL (0.0-0.7); #Lymphocytes 1.9 thou/uL (1.20-3.40); #Monocytes 0.6 thou/uL (0.11-0.59); #Neutrophils 4.6 thou/uL (1.40-6.50); %Basophils 0.5 % (0.0-1.0); %Eosinophils 3.7 % (0.0-10.0); %Lymphocytes 25.4 % (21.0-51.0); %Monocytes 8.3 % (0.0-10.0); %Neutrophils 62.1 % (42.0-75.0); Hemoglobin 12.8 g/dL (12.0-16.0); Mean Corpuscular HGB CONC 32.6 g/dL (32.0-36.0); Mean Corpuscular Hemoglobin 28.7 pg (27.0-31.0); Mean Corpuscular Volume 88.1 fL (78.0-98.0); Mean Platelet Volume 7.8 fL (7.4-10.4); Platelet Count 300 thou/uL (130-400); RBC Distribution Width 13.3 % (11.5-14.5); Red Blood Cell (RBC) Count 4.47 mill/uL (4.20-5.40); White Blood Cell (WBC) Count 7.4 thou/uL (4.8-10.8)
--- NOTE | 2019-07-03 19:56 | ULT ---
Sonogram right upper quadrant HISTORY: Abdominal pain. FINDINGS: Gallbladder has a normal sonographic appearance. There is no gallbladder wall thickening or pericholecystic fluid. Patient was reportedly tender over the gallbladder fossa at the time of the exam. Common duct is 0.3 cm diameter. Liver unremarkable without focal mass or intrahepatic biliary dilatat ion. No free fluid. IMPRESSION : Positive for point tenderness over the gallbladder fossa. No direct sonographic abnormalities are dem onstrated.
[2019-07-03 19:58] LABS: Bilirubin Negative (Negative); Blood, Urine Negative (Negative); Clarity Clear (Clear); Glucose, Urine (Dipstick) Normal (Negative); Leukocyte Negative Leu/uL (Negative); Nitrite Negative (Negative); Protein, Urine (Dipstick) Negative (Neg-Trace); Urobilinogen Normal mg/dL (Less than 2)
[2019-07-03 20:46] LABS: Albumin 4.2 g/dL (3.5-5.0)
[2019-07-03 20:47] LABS: Calcium 9.8 mg/dL (7.8-10.44); Chloride 102 mmol/L (98-107); Potassium 4.1 mmol/L (3.5-5.1); Sodium 140 mmol/L (136-145)
[2019-07-03 20:48] LABS: Glucose 102 mg/dL (70-105); Protein, Total 7.2 g/dL (6.0-8.3)
[2019-07-03 20:49] LABS: Anion Gap 15 mmol/L (10-20); Carbon Dioxide 27 mmol/L (22-29)
[2019-07-03 20:50] LABS: Bilirubin, Total 0.2 mg/dL (0.2-1.2)
[2019-07-03 20:51] LABS: Alkaline Phosphatase 57 U/L (40-110); Calc. Creatinine Clearance 0 mL/min (70-130); Estimated GFR-MDRD Greater than 90
[2019-07-03 20:52] LABS: BUN (Urea Nitrogen) 8 mg/dL (7.0-18.7)
[2019-07-03 20:53] LABS: AST (SGOT) 13 U/L (5-34)
[2019-07-03 20:54] LABS: ALT (SGPT) 23 U/L (8-55); Lipase 22 U/L (8-78)
== END 2019-07-03 22:28 | disposition home or self-care (01) ==
LOC: ERS 18:14
DX: R10.11 Right upper quadrant pain (principal); Z86.73 Personal history of transient ischemic attack (TIA), and cerebral infarction without residual deficits
CPT/HCPCS: 36415; 76705; 80053; 81003; 83690; 85025; 96361; 96374; J1885

== ENCOUNTER 2019-11-01 10:58 | Emergency (ER) | payer OTHER ==
[2019-11-01] MEDS ORDERED: Fentanyl 100 MCG/2 ML VIAL ONE (12:08)
[2019-11-01] MEDS ORDERED: Dexamethasone 10 MG/ML VIAL ONE (12:09)
[2019-11-01] MEDS ORDERED: Metoclopramide HCl 10 MG/2 ML VIAL ONE (12:09)
[2019-11-01] MEDS ORDERED: Metoclopramide 10 MG/10 ML UDCUP ONE (12:09)
[2019-11-01] MEDS ORDERED: Ketorolac Tromethamine 30 MG/ML VIAL ONE (12:09)
== END 2019-11-01 13:30 | disposition home or self-care (01) ==
LOC: ERS 10:58
DX: G43.909 Migraine, unspecified, not intractable, without status migrainosus (principal); Z86.73 Personal history of transient ischemic attack (TIA), and cerebral infarction without residual deficits
CPT/HCPCS: 36416; 96374; 96375; J1100; J1885; J2765; J3010

== ENCOUNTER 2019-11-06 14:35 | Observation (INO) | payer OTHER ==
[2019-11-06 15:32] LABS: #Basophils 0.1 thou/uL (0.0-0.2); #Eosinphils 0.3 thou/uL (0.0-0.7); #Lymphocytes 2.3 thou/uL (1.20-3.40); #Monocytes 0.7 thou/uL (0.11-0.59); #Neutrophils 7.2 thou/uL (1.40-6.50); %Basophils 0.7 % (0.0-1.0); %Eosinophils 2.9 % (0.0-10.0); %Lymphocytes 21.5 % (21.0-51.0); %Monocytes 6.3 % (0.0-10.0); %Neutrophils 68.5 % (42.0-75.0); Hemoglobin 13.9 g/dL (12.0-16.0); Mean Corpuscular Hemoglobin 28.6 pg (27.0-31.0); Mean Corpuscular Volume 86.7 fL (78.0-98.0); Mean Platelet Volume 7.5 fL (7.4-10.4); Platelet Count 367 thou/uL (130-400); RBC Distribution Width 13.1 % (11.5-14.5); Red Blood Cell (RBC) Count 4.86 mill/uL (4.20-5.40); White Blood Cell (WBC) Count 10.4 thou/uL (4.8-10.8)
[2019-11-06 15:52] LABS: ALT (SGPT) 26 U/L (8-55); AST (SGOT) 11 U/L (5-34); Albumin 4.3 g/dL (3.5-5.0); Alkaline Phosphatase 58 U/L (40-110); Anion Gap 14 mmol/L (10-20); BUN (Urea Nitrogen) 9 mg/dL (7.0-18.7); Bilirubin, Total 0.4 mg/dL (0.2-1.2); Calc. Creatinine Clearance 0 mL/min (70-130); Calcium 9.5 mg/dL (7.8-10.44); Carbon Dioxide 23 mmol/L (22-29); Chloride 105 mmol/L (98-107); Estimated GFR-MDRD 88; Globulin 3.5 g/dL (2.4-3.5); Glucose 103 mg/dL (70-105); Potassium 3.6 mmol/L (3.5-5.1); Protein, Total 7.8 g/dL (6.0-8.3); Sodium 138 mmol/L (136-145)
--- NOTE | 2019-11-06 15:55 | RAD ---
PORTABLE CHEST 1 VIEW: DATE: 11/06/2019. TIME: 3:13 PM. HISTORY: Chest pain. COMPARISON: 03/21/2019. FINDINGS: The heart size is normal. The lungs are expanded without focal areas of consolidation, pneumothorace s, or pleural effusions. IMPRESSION: No radiographic evidence of acute cardiopulmonary process. POS: [facility]
[2019-11-06] MEDS ORDERED: diphenhydrAMINE 50 MG/ML VIAL ONE (16:59)
[2019-11-06] MEDS ORDERED: Metoclopramide HCl 10 MG/2 ML VIAL ONE ×2 (16:59→18:00)
[2019-11-06] MEDS ORDERED: Magnesium 2 GM/50 ML BAG (IN WATER) ONE (16:59)
[2019-11-06] MEDS ORDERED: diphenhydrAMINE 25 MG CAP ONE (19:39)
[2019-11-06] MEDS ORDERED: Ibuprofen 800 MG TAB ONE (19:39)
[2019-11-06] MEDS ORDERED: Acetaminophen 500 MG TAB ONE (19:39)
[2019-11-06 20:00] LABS: Troponin I Less than 0.010 ng/mL (< 0.028)
--- NOTE | 2019-11-06 20:33 | CT ---
Exam: Head CT without contrast HISTORY: Headache, x3-4 days COMPARISON: 06/11/2018, 11/09/2018 FINDINGS: Hemorrhage: No intraparenchymal hemorrhage or extra-axial hematoma. Brain parenchyma: Cortical vines-white matter differentiation is preserved. No mass effect or midline shift. Basilar cisterns are patent. Ventricular system: Ventricles and sulci are patent and symmetric. Calvarium: Intact. Sinuses and mastoid air cells: Adequate aeration. IMPRESSION: No acute intracranial process.
[2019-11-06 23:32] LABS: Troponin I 0.011 ng/mL (< 0.028)
[2019-11-07] MEDS ORDERED: Ondansetron PF 4 MG/2 ML Vial IVP PRN
[2019-11-07] MEDS: Morphine 2 MG/ML VIAL SLOW IVP PRN ×2 (00:43→11:24)
--- NOTE | 2019-11-07 00:57 | HP ---
REASON FOR ADMISSION: Headaches. HISTORY OF PRESENT ILLNESS: This is a 34-year-old female patient, who is known to have migraines and was seen in the emergency room on 10/31 of this year for headaches. Since then after her discharge from here, went to see her neurologist, who gave her as per her a shot of pain medication and advised her to continue with her current migraine regimen, but the patient did not improve, continued to have a headache described as if her head is swollen. According the patient, not affected by light or noise. She denies fevers. Denies chills. This morning, she did experience chest pain localized in the left parasternal area, described as sharp in nature, associated with shortness of breath. Also left shoulder pain that is worse with movement. She is able to reproduce her chest pain, but she said that whenever she palpate her chest, the pain produced is different than the pain that she felt this morning. I did review her records and she had multiple admissions in the past for uncontrolled migraine and last one was in May of 2018 during which the patient was considered to have migraine due to her pseudotumor cerebri and an LP was done. She was started on Diamox, but it seems that she developed renal insufficiency when this medication was stopped. PAST MEDICAL HISTORY: 1. Migraines. 2. Prediabetes. 3. TIA. 4. Fatty liver. 5. Gastritis. 6. Pseudotumor cerebri. 7. Ovarian cyst. FAMILY HISTORY: Mother has diabetes and CHF. ALLERGIES: NO NOTE OF ANY DRUG ALLERGIES. SOCIAL HISTORY: She does not smoke. Does not drink alcohol. REVIEW OF SYSTEMS: All systems reviewed except the above mentioned, found to be negative. PHYSICAL EXAMINATION: GENERAL: She is awake, alert, and oriented. Does not appear in distress. VITAL SIGNS: Her blood pressure is 128/58, heart rate of 66, temperature is 98.4, and saturating 97% on room air. HEENT: Head is nontraumatic and normocephalic. Pupils equal and reactive. Extraocular movements are intact. Nonicteric sclerae. Well injected conjunctivae. Oral mucosa normal. Nasal mucosa normal. NECK: Supple. No adenopathy. No murmur. Thyroid is not palpable. Trachea is midline. No supraclavicular lymphadenopathy. HEART: S1 and S2. Regular. No murmur. No gallops. No friction rubs. No displacement of PMI. LUNGS: Clear to auscultation bilaterally. No wheezes. No rhonchi. No crackles. ABDOMEN: Bowel sounds are positive. Nontender abdomen. No hepatosplenomegaly. EXTREMITIES: No lower extremity edema. Palpation of her left shoulder elicits pain. Palpation of her left chest area does elicit pain as well. NEURO: Cranial nerves 2 through 12 within normal limits. Normal motor function. Normal sensory function. Normal reflexes. LABORATORY DATA: Blood work shows a WBC of 10.4, hemoglobin of 13.9, and platelets of 367. Sodium 138, potassium 3.6, bicarb 23, BUN 9, and creatinine 0.75. Troponin 0.01 and repeat 0.011. EKG shows no evidence of ischemia. ASSESSMENT AND PLAN: This is a 34-year-old female patient, who is morbidly obese, presenting with exacerbation of her migraine headaches. Also complaining of chest pain that has two components. One is reproducible with palpation. The other part is nonreproducible. 1. Neuro. The patient will be started on pain regimen to control her migraines and we will ask Neurology to see her in the morning and to see if they recommend an LP for possible pseudotumor cerebri. 2. Cardiac. The patient will be on telemetry. We will continue cycling her cardiac enzymes and we will schedule for a nuclear stress test. 3. For deep venous thrombosis prophylaxis, she will be sequential compression devices. 4. I am awaiting for her med rec to be done to reconcile her medications. Job ID: [id number]
[2019-11-07 01:45] LABS: Troponin I 0.012 ng/mL (< 0.028)
[2019-11-07 05:08] LABS: #Basophils 0.1 thou/uL (0.0-0.2); #Eosinphils 0.3 thou/uL (0.0-0.7); #Monocytes 0.7 thou/uL (0.11-0.59); #Neutrophils 4.5 thou/uL (1.40-6.50); %Basophils 0.7 % (0.0-1.0); %Eosinophils 4.2 % (0.0-10.0); %Lymphocytes 25.8 % (21.0-51.0); %Monocytes 9.1 % (0.0-10.0); %Neutrophils 60.2 % (42.0-75.0); Hemoglobin 12.5 g/dL (12.0-16.0); Mean Corpuscular HGB CONC 32.6 g/dL (32.0-36.0); Mean Corpuscular Hemoglobin 28.9 pg (27.0-31.0); Mean Corpuscular Volume 88.8 fL (78.0-98.0); Mean Platelet Volume 7.5 fL (7.4-10.4); Platelet Count 336 thou/uL (130-400); RBC Distribution Width 13.1 % (11.5-14.5); Red Blood Cell (RBC) Count 4.33 mill/uL (4.20-5.40); White Blood Cell (WBC) Count 7.6 thou/uL (4.8-10.8)
[2019-11-07 05:25] LABS: Anion Gap 13 mmol/L (10-20); BUN (Urea Nitrogen) 13 mg/dL (7.0-18.7); Calc. Creatinine Clearance 218 mL/min (70-130); Calcium 8.7 mg/dL (7.8-10.44); Carbon Dioxide 21 mmol/L (22-29); Chloride 106 mmol/L (98-107); Estimated GFR-MDRD Greater than 90; Glucose 134 mg/dL (70-105); Potassium 3.4 mmol/L (3.5-5.1); Sodium 137 mmol/L (136-145)
[2019-11-07] MEDS: HYDROcodone/Acetaminophen 5/325 mg Tablet PO PRN ×3 (08:24→21:01)
--- NOTE | 2019-11-07 13:10 | CON ---
NEUROLOGY CONSULTATION DATE OF CONSULTATION: 11/07/2019 REASON FOR CONSULTATION: Intractable headache. HISTORY OF PRESENT ILLNESS: Ms. Richey is a 34-year-old female with a history significant for migraines, presented to the emergency room on 11/01/2019 because of headache. She was discharged after receiving treatment and then followed up with a neurologist, who gave her a pain shot and advised her to continue her current migraine regimen, but according the patient, the headache has gone extremely worse and seems like the whole head is swollen. She describes the headache as pressure-like, severe pain, all over her head without photophobia or phonophobia. She does describe the pain as 9/10. The patient denies any focal weakness, focal paresthesias, nausea, vomiting, hest pain, or abdominal pain associated with the episode. She does have a diagnosis of pseudotumor cerebri, which was confirmed with LP in May of 2018 and was started on Diamox, but at some point, which was discontinued because of side effects. REVIEW OF SYSTEMS: All 14 systems were reviewed and were negative except the pertinent positives and negatives mentioned in the HPI. PAST MEDICAL HISTORY: Migraines, prediabetes, transient ischemic attack, fatty liver, gastritis, pseudotumor cerebri, ovarian cyst. FAMILY HISTORY: Mother has diabetes and congestive heart failure. ALLERGIES: NO KNOWN DRUG ALLERGIES. SOCIAL HISTORY: The patient denies smoking, alcohol, or illegal drug use. PHYSICAL EXAMINATION: VITAL SIGNS: Blood pressure 120/50, pulse 66, respiratory rate 18. CVS: Regular rate and rhythm. CHEST: Clear. ABDOMEN: Soft. NECK: Supple. NEUROLOGIC: Mental status; the patient is alert and oriented to person, place, and time. Cranial nerves 2 through 12 are intact. Motor, muscle tone and bulk are normal. Strength 5/5 bilaterally. Sensory intact. Cerebellar, finger-nose testing intact. Gait deferred due to the patient's safety reason. DATA REVIEWED: I reviewed the head CT, which was negative for acute intracranial pathology. ASSESSMENT AND PLAN: Ms. Letha Richey is a 34-year-old female with history of pseudotumor, presented with intractable headache. Consider scheduled doses of diphenhydramine 25 mg IV q.6 hours for four doses, and Compazine 10 mg IV q.6 hours for four doses to abort the migraine - Ordered.. Neuro checks every 4 hours. Avoid narcotics as it may cause rebound headache. The patient has history of pseudotumor cerebri, so consider high-volume tap about 30 mL with opening pressure to see if she needs further intervention. Continue home medications. Continue medical management per Primary Team. Plan discussed with the patient. We will continue to follow. Thank you for the consult. Job ID: [id number] [id number]
[2019-11-07 14:21] LABS: SARS-CoV-2 MS2 Positive; SARS-CoV-2 N Gene Negative; SARS-CoV-2 S Gene Negative; SARS-CoV-2 by NAA Not Detected (NotDetected); SARS-CoV-2 orf1ab Negative
[2019-11-07] MEDS: diphenhydrAMINE 50 MG/ML VIAL IVP SCH ×2 (14:45→21:02)
[2019-11-07 15:10] LABS: INR-International Normal Ratio 0.9; Prothrombin Time 12.6 sec (12.0-14.7)
[2019-11-07] MEDS: Prochlorperazine 10 MG/2 ML VIAL IVP SCH ×2 (17:34→23:50)
--- NOTE | 2019-11-07 21:18 | PDOC.HOSPP ---
- Subjective Encounter Date: 11/07/19 Encounter Time: 11:00 Subjective: Patient was seen and examined in bed. She complains of ongoing headache. Also had a brief period of chest pain which had resolved at the time of my evaluation. She however denied any shortness of breath. No significant overnight events - Objective Vital Signs & Weight: Vital Signs (12 hours) Temp Pulse Resp BP Pulse Ox 11/07/19 15:37 97.7 F 76 16 137/67 97 11/07/19 11:08 98.3 F 91 17 143/91 H 96 Weight Weight 268 lb 4.8 oz I&O: 11/06/19 11/07/19 11/08/19 06:59 06:59 06:59 Intake Total 150 560 Balance 150 560 Result Diagrams: 11/07/19 04:51 11/07/19 04:51 Additional Labs: Accuchecks 11/07/19 14:40 POC Glucose 109 Hospitalist ROS - Medication Medications: Active Medications Generic Name Dose Route Start Last Admin Trade Name Freq PRN Reason Stop Dose Admin Hydrocodone Bitart/Acetaminophen 1 tab 11/07/19 00:00 11/07/19 21:01 [place] 5/325 PO 1 tab Q4H PRN Administration Moderate Pain (4-6) Diphenhydramine HCl 25 mg 11/07/19 14:45 11/07/19 21:02 Benadryl IVP 11/08/19 08:46 25 mg Q6H CHRIST Administration Morphine Sulfate 2 mg 11/07/19 00:02 11/07/19 11:24 Morphine SLOW IVP 2 mg Q4H PRN Administration Headache Ondansetron HCl 4 mg 11/07/19 00:00 11/07/19 14:30 Zofran IVP 4 mg Q6H PRN Administration Nausea/Vomiting Prochlorperazine Edisylate 10 mg 11/07/19 18:00 11/07/19 17:34 Compazine IVP 11/08/19 12:01 10 mg Q6HR CHRIST Administration - Exam General - other findings: Patient in bed, obese, no acute distress however appears tearful Heart - other findings: S1-S2 present. No murmurs gallops or rubs. Respiratory - other findings: Air entry adequate bilaterally. No rhonchi rales. Gastrointestinal - other findings: Abdomen obese. No tenderness or rebound tenderness. Bowel sounds present. Extremities - other findings: No edema noted. Hosp A/P - Plan 34-year-old female patient with a history of pseudotumor cerebri, migraine headaches who presents with new episodes of worsening headaches. Headaches Migraine versus pseudotumor cerebri. Continue medical managementscheduled diphenhydramine and Compazine High-volume tap planned by neurology Continue neurochecks every 4 hours Neurology consulted Chest pain Troponin negative x3 Likely musculoskeletal onset related Also possible gastritiswe will try pantoprazole She had partial stress test today to complete tomorrow We will monitor closely. Continue telemetry. DVT prophylaxiswe will start Lovenox
[2019-11-08 02:16] VITALS: BMI 50.5
[2019-11-08] MEDS: diphenhydrAMINE 50 MG/ML VIAL IVP SCH ×2 (02:16→10:06)
[2019-11-08] MEDS: Prochlorperazine 10 MG/2 ML VIAL IVP SCH ×2 (06:04→12:52)
[2019-11-08] MEDS: Morphine 2 MG/ML VIAL SLOW IVP PRN (09:55)
[2019-11-08] MEDS: Enoxaparin Sodium 40 MG/0.4 ML SYRINGE SC SCH (09:56)
[2019-11-08] MEDS ORDERED: Polyethylene Glycol 3350 17 GM Packet PO SCH (10:15)
--- NOTE | 2019-11-08 10:30 | NM ---
Radionucleotide stress and rest myocardial perfusion scan with CT attenuation correction and SPECT im aging HISTORY: Chest pain. FINDINGS: Adenosine protocol. Heterogeneous uptake of radiotracer throughout the left ventricular charles cardium. Some breast attenuation evident. No focal perfusion defect or reversibility evident. QGS analysis of gated SPECT images shows slight decrease of motion at the inferior wall. Left ventric ular ejection fraction calculated at 61%. IMPRESSION : No evidence of ischemia. Normal LVEF.
[2019-11-08] MEDS: HYDROcodone/Acetaminophen 5/325 mg Tablet PO PRN (12:52)
--- NOTE | 2019-11-08 14:52 | PDOC.HOSPP ---
- Subjective Encounter Date: 11/08/19 Encounter Time: 13:00 Subjective: Patient was seen and examined in bed. Still complains of ongoing headache and intermittent chest pain. She just returned from stress test. Otherwise no significant events overnight - Objective Vital Signs & Weight: Vital Signs (12 hours) Temp Pulse Resp BP Pulse Ox 11/08/19 11:59 98.7 F 86 21 H 153/82 H 98 11/08/19 07:56 98.1 F 86 20 145/89 H 97 11/08/19 04:00 97.7 F 80 15 130/78 93 L Weight Weight 267 lb 4.8 oz I&O: 11/07/19 11/08/19 11/09/19 06:59 06:59 06:59 Intake Total 150 560 Balance 150 560 Result Diagrams: 11/07/19 04:51 11/07/19 04:51 Hospitalist ROS - Medication Medications: Active Medications Generic Name Dose Route Start Last Admin Trade Name Freq PRN Reason Stop Dose Admin Hydrocodone Bitart/Acetaminophen 1 tab 11/07/19 00:00 11/08/19 12:52 [place] 5/325 PO 1 tab Q4H PRN Administration Moderate Pain (4-6) Enoxaparin Sodium 40 mg 11/08/19 09:00 11/08/19 09:56 Lovenox SC 40 mg 09 CHRIST Administration Morphine Sulfate 2 mg 11/07/19 00:02 11/08/19 09:55 Morphine SLOW IVP 2 mg Q4H PRN Administration Headache Ondansetron HCl 4 mg 11/07/19 00:00 11/07/19 14:30 Zofran IVP 4 mg Q6H PRN Administration Nausea/Vomiting Pantoprazole Sodium 40 mg 11/08/19 09:00 11/08/19 09:56 Protonix PO 40 mg DAILY CHRIST Administration - Exam General - other findings: Morbidly obese, no acute distress. Heart - other findings: S1-S2 present and normal. No murmurs gallops or rubs. Respiratory - other findings: Anterior decreased bilaterally. No wheezes or rales Gastrointestinal - other findings: Full, soft, bowel sounds present normal. No organomegaly or tenderness Extremities - other findings: No edema or cyanosis. Hosp A/P - Plan 34-year-old female patient with a history of pseudotumor cerebri, migraine headaches who presents with new episodes of worsening headaches. Stress test today was negative. Given no improvement in headache will await neurology procedure and observe for 1 more day. Headaches Migraine versus pseudotumor cerebri. Continue medical managementscheduled diphenhydramine and Compazine Also start amitriptyline and topiramate High-volume tap planned by neurology Continue neurochecks every 4 hours Neurology on board.Appreciate input Chest pain Stress test is negativewe will treat for GERD/gastritis in the meantime. Troponin negative x3 Likely musculoskeletal onset related We will monitor closely. Continue telemetry. DVT prophylaxiswe will start Lovenox
--- NOTE | 2019-11-08 19:54 | PDOC.NEUPN ---
- Subjective Encounter Date: 11/08/19 Subjective: Patient continues to complain of headache not relieved by IV medications. - Objective Vital Signs & Weight: Vital Signs (12 hours) Temp Pulse Resp BP Pulse Ox 11/08/19 16:59 86 133/86 11/08/19 16:11 97.9 F 94 18 173/81 H 97 11/08/19 11:59 98.7 F 86 21 H 153/82 H 98 11/08/19 07:56 98.1 F 86 20 145/89 H 97 Weight Weight 267 lb 4.8 oz I&O: 11/07/19 11/08/19 11/09/19 06:59 06:59 06:59 Intake Total 150 560 273.5 Balance 150 560 273.5 Result Diagrams: 11/07/19 04:51 11/07/19 04:51 Radiology Reviewed by me: Yes EKG Reviewed by me: Yes ROS - Review of Systems Constitutional: denies: fever, chills, sweats, weakness, malaise, other Eyes: reports: pain, other (headache) ENT: denies: ear pain, ear discharge, nose pain, nose discharge, nose congestion , mouth pain, mouth swelling, throat pain, throat swelling, other Respiratory: denies: cough, dry, shortness of breath, hemoptysis, SOB with excertion, pleuritic pain, sputum, wheezing, other Cardiovascular: denies: no pertinent history, AFIB, CAD, CHF, HTN, LA, Syncope, Hyperlipidemia, Mitral valve stenosis, Aortic stenosis, Valve insufficiency, Pulmonary hypertension, Other Gastrointestinal: denies: nausea, vomiting, abdominal pain, diarrhea, constipation, melena, hematochezia, other Genitourinary: denies: dysuria, frequency, incontinence, hematuria, retention, other Musculoskeletal: reports: neck pain, shoulder pain, back pain Skin: denies: rash, lesions, tanner, bruising, other Neurological: denies: weakness, numbness, incoordination, change in speech, confusion, seizures, other - Medication Medications: Active Medications Generic Name Dose Route Start Last Admin Trade Name Freq PRN Reason Stop Dose Admin Hydrocodone Bitart/Acetaminophen 1 tab 11/07/19 00:00 11/08/19 12:52 [place] 5/325 PO 1 tab Q4H PRN Administration Moderate Pain (4-6) Enoxaparin Sodium 40 mg 11/08/19 09:00 11/08/19 09:56 Lovenox SC 40 mg 0900 CHRIST Administration Morphine Sulfate 2 mg 11/07/19 00:02 11/08/19 09:55 Morphine SLOW IVP 2 mg Q4H PRN Administration Headache Ondansetron HCl 4 mg 11/07/19 00:00 11/07/19 14:30 Zofran IVP 4 mg Q6H PRN Administration Nausea/Vomiting Pantoprazole Sodium 40 mg 11/08/19 09:00 11/08/19 09:56 Protonix PO 40 mg DAILY CHRIST Administration - Exam General Appearance: awake alert Eye: PERRL ENT: normocephalic atraumatic Neck: supple Respiratory: CTAB Cardiovascular: RRR Gastrointestinal: soft Extremities: no cyanosis Skin: normal turgor Neurological: no focal deficits Musculoskeletal: normal tone, normal strength PSYCH: normal affect, normal behavior, A&O x 3, oriented to person, oriented to place, oriented to time Results - Labs Result Diagrams: 11/07/19 04:51 11/07/19 04:51 Lab results: WBC 7.6 thou/uL (4.8-10.8) 11/07/19 04:51 Hgb 12.5 g/dL (12.0-16.0) 11/07/19 04:51 Hct 38.4 % (36.0-47.0) 11/07/19 04:51 MCV 88.8 fL (78.0-98.0) 11/07/19 04:51 Plt Count 336 thou/uL (130-400) 11/07/19 04:51 Neutrophils % 60.2 % (42.0-75.0) 11/07/19 04:51 Sodium 137 mmol/L (136-145) 11/07/19 04:51 Potassium 3.4 mmol/L (3.5-5.1) L 11/07/19 04:51 Chloride 106 mmol/L (98-107) 11/07/19 04:51 Carbon Dioxide 21 mmol/L (22-29) L 11/07/19 04:51 BUN 13 mg/dL (7.0-18.7) 11/07/19 04:51 Creatinine 0.70 mg/dL (0.6-1.1) 11/07/19 04:51 Glucose 134 mg/dL (70-105) H 11/07/19 04:51 Calcium 8.7 mg/dL (7.8-10.44) 11/07/19 04:51 Total Bilirubin 0.4 mg/dL (0.2-1.2) 11/06/19 15:24 AST 11 U/L (5-34) 11/06/19 15:24 ALT 26 U/L (8-55) 11/06/19 15:24 Alkaline Phosphatase 58 U/L (40-110) 11/06/19 15:24 Troponin I 0.012 ng/mL (< 0.028) 11/07/19 01:11 Serum Total Protein 7.8 g/dL (6.0-8.3) 11/06/19 15:24 Albumin 4.3 g/dL (3.5-5.0) 11/06/19 15:24 - EKG Interpretation EKG: NSR - Radiology Interpretation CT scan - head Additional Comment: No acute intracranial pathology PN A/P (1) Intractable migraine Code(s): G43.919 - MIGRAINE, UNSP, INTRACTABLE, WITHOUT STATUS MIGRAINOSUS Status: Acute (2) Pseudotumor cerebri Code(s): G93.2 - BENIGN INTRACRANIAL HYPERTENSION Status: Acute (3) Nausea Code(s): R11.0 - NAUSEA Status: Acute (4) Paresthesia Code(s): R20.2 - PARESTHESIA OF SKIN Status: Acute (5) UTI (urinary tract infection) Status: Acute (6) Diabetes mellitus Code(s): E11.9 - TYPE 2 DIABETES MELLITUS WITHOUT COMPLICATIONS Status: Chronic (7) GERD (gastroesophageal reflux disease) Code(s): K21.9 - GASTRO-ESOPHAGEAL REFLUX DISEASE WITHOUT ESOPHAGITIS Status: Chronic (8) Morbid obesity Code(s): E66.01 - MORBID (SEVERE) OBESITY DUE TO EXCESS CALORIES Status: Chronic - Plan Daily Plan: PT/OT, speech therapy, DVT proph w/SCDs 34 year old with intractable headache - Concern about pseudotumor cerebri. Continue pain control with medications. LP under fluoro scheduled tomorrow. High volume tap with opening pressure. Avoid narcotics- Risk of rebound headaches. Intermittent chest pain- cardiac stress test negative for ischemia. Normal LV function. Neurochecks every 4 hours. Continue home medications. Continue medical management per primary team. Plan discussed with the patient and the nursing staff.
[2019-11-08] MEDS: Topiramate 25 MG TAB PO SCH (20:48)
[2019-11-09] MEDS: HYDROcodone/Acetaminophen 5/325 mg Tablet PO PRN ×2 (03:52→11:33)
[2019-11-09] MEDS: Topiramate 25 MG TAB PO SCH (08:23)
[2019-11-09] MEDS: Polyethylene Glycol 3350 17 GM Packet PO SCH ×2 (08:24→10:48)
[2019-11-09] MEDS: Enoxaparin Sodium 40 MG/0.4 ML SYRINGE SC SCH (08:24)
[2019-11-09] MEDS ORDERED: Amitriptyline HCl 10 MG TAB PO SCH (09:00)
--- NOTE | 2019-11-09 10:34 | RAD ---
Exam: Lumbar puncture with fluoroscopic guidance HISTORY: Pseudotumor cerebri. COMPARISON: 06/14/2019. EXPOSURE: 0.6 minutes, 274.9 microgray/M2. FINDINGS: Initial two-view insurance examining clerk lumbar spine radiograph demonstrates 5 lumbar type vertebra. Vertebral body he ights are maintained. No fracture. Disc space heights are preserved. No spondylolisthesis. Visualized sacrum and bony pelvis are intact Successful lumbar puncture. Opening pressure is 22 cm of water. Closing pressure is less than 15 cm o f water. Total of 25 mL of clear CSF was collected. TECHNIQUE: Consent obtained to perform a lumbar puncture for a high volume tap. The L2-L3 level was deemed appro priate. Skin was prepped and draped in a sterile fashion. 1% lidocaine, buffered with sodium bicarbonate was used for local anesthesia. Under fluoroscopic guidance, a 20-gauge spinal needle was advanced into the CSF space. Opening pressure was performed. 25 mL were collected. Closing pressure was performed. Given that a 6 inch needle was used, the closing pressure cannot be determined in term s of the actual number. However, there was no longer evidence of CSF to the level of the hub of the needle. Therefore, the closing pressure is less than 15 cm of water. IMPRESSION: Successful lumbar puncture. Transcribed Date/Time: 11/09/2019 10:39 AM
[2019-11-09 10:51] VITALS: BP 129/69; TEMP 98
[2019-11-09 11:59] LABS: CSF Source CSF
[2019-11-09 12:00] LABS: Clarity Clear (Clear); Tube # 4
--- NOTE | 2019-11-09 12:00 | PDOC.HOSPP ---
- Subjective Encounter Date: 11/09/19 Encounter Time: 12:00 Subjective: Patient was seen and examined in bed. She had just finished lumbar puncture with approximately 25 mils of CSF withdrawn. She complains of mild headache and back pain from the region of LP. She otherwise denies any chest pain or shortness of breath - Objective Vital Signs & Weight: Vital Signs (12 hours) Temp Pulse Resp BP Pulse Ox 11/09/19 10:49 98.0 F 70 18 129/69 99 11/09/19 07:54 97.9 F 68 18 129/89 96 11/09/19 05:00 98.0 F 84 14 108/65 95 11/09/19 03:55 97.9 F 78 18 143/92 H 96 11/09/19 00:00 97.9 F 94 14 105/46 L 96 Weight Weight 267 lb 4.8 oz I&O: 11/08/19 11/09/19 11/10/19 06:59 06:59 06:59 Intake Total 560 273.5 Balance 560 273.5 Result Diagrams: 11/07/19 04:51 11/07/19 04:51 Hospitalist ROS - Medication Medications: Active Medications Generic Name Dose Route Start Last Admin Trade Name Freq PRN Reason Stop Dose Admin Hydrocodone Bitart/Acetaminophen 1 tab 11/07/19 00:00 11/09/19 11:33 [place] 5/325 PO 1 tab Q4H PRN Administration Moderate Pain (4-6) Amitriptyline HCl 10 mg 11/09/19 09:00 11/09/19 08:23 Elavil PO 10 mg DAILY CHRIST Administration Enoxaparin Sodium 40 mg 11/08/19 09:00 11/09/19 08:24 Lovenox SC Not Given 899 CHRIST Morphine Sulfate 2 mg 11/07/19 00:02 11/08/19 09:55 Morphine SLOW IVP 2 mg Q4H PRN Administration Headache Ondansetron HCl 4 mg 11/07/19 00:00 11/07/19 14:30 Zofran IVP 4 mg Q6H PRN Administration Nausea/Vomiting Pantoprazole Sodium 40 mg 11/08/19 09:00 11/09/19 08:23 Protonix PO 40 mg DAILY CHRIST Administration Polyethylene Glycol 17 gm 11/09/19 09:00 11/09/19 10:48 Miralax PO Not Given DAILY CHRIST Sodium Chloride 10 ml 11/08/19 21:00 11/09/19 08:24 Flush - Normal Saline IVF 10 ml Q12HR CHRIST Administration Topiramate 50 mg 11/08/19 21:00 11/09/19 08:23 Topamax PO 50 mg BID CHRIST Administration - Exam General - other findings: Patient in bed, lying supine. Obese, no acute distress Heart - other findings: S1-S2 present. No murmurs gallops or rubs. Respiratory - other findings: Entry adequate bilaterally. Gastrointestinal - other findings: Full, soft, no organomegaly. Extremities - other findings: No edema Neurological: cranial nerve grossly intact, no focal deficits Hosp A/P - Plan 34-year-old female patient with a history of pseudotumor cerebri, migraine headaches who presents with new episodes of worsening headaches and chest pain. Stress test a day ago was negative. She had 25 mils CSF removed after lumbar puncture today with improvement in her headache. Headaches Migraine versus pseudotumor cerebri. She status post LP with CSF control Feels betterwe will continue amitriptyline and Topamax We will monitor Appreciate neurology input. Chest pain Stress test is negativewe will treat for GERD/gastritis in the meantime. Troponin negative x3 Likely musculoskeletal related, possible GERD On pantoprazole We will monitor closely. Continue telemetry. DVT prophylaxiswe will start Lovenox
--- NOTE | 2019-11-09 12:19 | PDOC.NEUPN ---
- Subjective Encounter Date: 11/09/19 Subjective: Patient headache is somewhat improved after LP. 25 cc of fluid taken and OP was 22 mm Hg. - Objective Vital Signs & Weight: Vital Signs (12 hours) Temp Pulse Resp BP Pulse Ox 11/09/19 10:49 98.0 F 70 18 129/69 99 11/09/19 07:54 97.9 F 68 18 129/89 96 11/09/19 05:00 98.0 F 84 14 108/65 95 11/09/19 03:55 97.9 F 78 18 143/92 H 96 Weight Weight 267 lb 4.8 oz I&O: 11/08/19 11/09/19 11/10/19 06:59 06:59 06:59 Intake Total 560 273.5 Balance 560 273.5 Result Diagrams: 11/07/19 04:51 11/07/19 04:51 Radiology Reviewed by me: Yes EKG Reviewed by me: Yes ROS - Review of Systems Constitutional: denies: fever, chills, sweats, weakness, malaise, other Eyes: denies: pain, vision change, conjunctivae inflammation, eyelid inflammation, redness, other ENT: reports: other (Headache). denies: ear pain, ear discharge, nose pain, nose discharge, nose congestion, mouth pain, mouth swelling, throat pain, throat swelling Cardiovascular: denies: no pertinent history, AFIB, CAD, CHF, HTN, [place], Syncope, Hyperlipidemia, Mitral valve stenosis, Aortic stenosis, Valve insufficiency, Pulmonary hypertension, Other Gastrointestinal: denies: nausea, vomiting, abdominal pain, diarrhea, constipation, melena, hematochezia, other Genitourinary: denies: dysuria, frequency, incontinence, hematuria, retention, other Musculoskeletal: reports: back pain. denies: neck pain, shoulder pain, arm pain , hand pain, leg pain, foot pain, other Skin: denies: rash, lesions, tanner, bruising, other Neurological: denies: weakness, numbness, incoordination, change in speech, confusion, seizures, other - Medication Medications: Active Medications Generic Name Dose Route Start Last Admin Trade Name Freq PRN Reason Stop Dose Admin Hydrocodone Bitart/Acetaminophen 1 tab 11/07/19 00:00 11/09/19 11:33 [place] 5/325 PO 1 tab Q4H PRN Administration Moderate Pain (4-6) Amitriptyline HCl 10 mg 11/09/19 09:00 11/09/19 08:23 Elavil PO 10 mg DAILY CHRIST Administration Enoxaparin Sodium 40 mg 11/08/19 09:00 11/09/19 08:24 Lovenox SC Not Given 0900 CHRIST Morphine Sulfate 2 mg 11/07/19 00:02 11/08/19 09:55 Morphine SLOW IVP 2 mg Q4H PRN Administration Headache Ondansetron HCl 4 mg 11/07/19 00:00 11/07/19 14:30 Zofran IVP 4 mg Q6H PRN Administration Nausea/Vomiting Pantoprazole Sodium 40 mg 11/08/19 09:00 11/09/19 08:23 Protonix PO 40 mg DAILY CHRIST Administration Polyethylene Glycol 17 gm 11/09/19 09:00 11/09/19 10:48 Miralax PO Not Given DAILY CHRIST Sodium Chloride 10 ml 11/08/19 21:00 11/09/19 08:24 Flush - Normal Saline IVF 10 ml Q12HR [facility]ST Administration Topiramate 50 mg 11/08/19 21:00 11/09/19 08:23 Topamax PO 50 mg BID CHRIST Administration - Exam General Appearance: awake alert Eye: PERRL ENT: normocephalic atraumatic Neck: supple Respiratory: CTAB Cardiovascular: RRR Gastrointestinal: soft Extremities: no cyanosis Skin: normal turgor Neurological: CN's grossly intact, normal sensation to touch, no weakness, no focal deficits, no new deficit Musculoskeletal: normal tone, normal strength, no muscle wasting PSYCH: normal affect, normal behavior, A&O x 3, oriented to person, oriented to place, oriented to time Results - Labs Result Diagrams: 11/07/19 04:51 11/07/19 04:51 Lab results: WBC 7.6 thou/uL (4.8-10.8) 11/07/19 04:51 Hgb 12.5 g/dL (12.0-16.0) 11/07/19 04:51 Hct 38.4 % (36.0-47.0) 11/07/19 04:51 MCV 88.8 fL (78.0-98.0) 11/07/19 04:51 Plt Count 336 thou/uL (130-400) 11/07/19 04:51 Neutrophils % 60.2 % (42.0-75.0) 11/07/19 04:51 Sodium 137 mmol/L (136-145) 11/07/19 04:51 Potassium 3.4 mmol/L (3.5-5.1) L 11/07/19 04:51 Chloride 106 mmol/L (98-107) 11/07/19 04:51 Carbon Dioxide 21 mmol/L (22-29) L 11/07/19 04:51 BUN 13 mg/dL (7.0-18.7) 11/07/19 04:51 Creatinine 0.70 mg/dL (0.6-1.1) 11/07/19 04:51 Glucose 134 mg/dL (70-105) H 11/07/19 04:51 Calcium 8.7 mg/dL (7.8-10.44) 11/07/19 04:51 Total Bilirubin 0.4 mg/dL (0.2-1.2) 11/06/19 15:24 AST 11 U/L (5-34) 11/06/19 15:24 ALT 26 U/L (8-55) 11/06/19 15:24 Alkaline Phosphatase 58 U/L (40-110) 11/06/19 15:24 Troponin I 0.012 ng/mL (< 0.028) 11/07/19 01:11 Serum Total Protein 7.8 g/dL (6.0-8.3) 11/06/19 15:24 Albumin 4.3 g/dL (3.5-5.0) 11/06/19 15:24 - Radiology Interpretation CT scan - head Status: image reviewed by me (negative for acute process) PN A/P (1) Intractable migraine Code(s): G43.919 - MIGRAINE, UNSP, INTRACTABLE, WITHOUT STATUS MIGRAINOSUS Status: Acute (2) Pseudotumor cerebri Code(s): G93.2 - BENIGN INTRACRANIAL HYPERTENSION Status: Acute (3) Nausea Code(s): R11.0 - NAUSEA Status: Acute (4) Paresthesia Code(s): R20.2 - PARESTHESIA OF SKIN Status: Acute (5) UTI (urinary tract infection) Status: Acute (6) Diabetes mellitus Code(s): E11.9 - TYPE 2 DIABETES MELLITUS WITHOUT COMPLICATIONS Status: Chronic (7) GERD (gastroesophageal reflux disease) Code(s): K21.9 - GASTRO-ESOPHAGEAL REFLUX DISEASE WITHOUT ESOPHAGITIS Status: Chronic (8) Morbid obesity Code(s): E66.01 - MORBID (SEVERE) OBESITY DUE TO EXCESS CALORIES Status: Chronic - Plan 34 year old with intractable headache - Concern about pseudotumor cerebri. Continue pain control with medications. Continue topiramate and amitriptyline for ADKINS prophylaxis. LP under fluoro scheduled done today. OP 22 mm Hg (Range: 10-20) Avoid narcotics- Risk of rebound headaches. Intermittent chest pain- cardiac stress test negative for ischemia. Normal LV function. Neurochecks every 4 hours. Continue home medications. Continue medical management per primary team. Mild increase in OP- Shoul;d follow up with oputpatient neurologist to assess the need for brass sorter treatment. Plan discussed with the patient and during MDR rounds.
--- NOTE | 2019-11-10 22:24 | DIS ---
DATE OF ADMISSION: 11/06/2019 DATE OF DISCHARGE: 11/09/2019 DISCHARGE DIAGNOSES: 1. Pseudotumor cerebri. 2. Migraine. 3. Chest pain. 4. Anxiety. BRIEF HOSPITAL COURSE: This is a 34-year-old female patient with a history of pseudotumor cerebri and migraines who presented with complaints of persistent headaches. She also had associated chest pain. She was sent to the ED and admitted for observation to have stress test for chest pain. Stress test that was done, was negative for any likely ischemia. She was treated for GERD, For headache, Neurology was consulted and she had lumbar puncture with 25mls of CSF removed to reduce her intracranial pressure. This improved her headaches. She was discharged to follow up with outpatient Neurology and her primary care physician. DISCHARGE PHYSICAL EXAMINATION: GENERAL: The patient was examined in bed, awake, and alert, in no distress. RESPIRATORY SYSTEM: Air entry adequate bilaterally. CARDIOVASCULAR: S1 and S2 present and normal. No murmurs, gallops, or rubs. ABDOMEN: Obese, nontender, bowel sounds present. EXTREMITIES: No edema. CONSULTS: Dr. Bernsteni - Neurology. DISCHARGE CONDITION: Stable. Followup with Neurology/PCP. Job ID: [id number] [facility]ITAL[facility]
--- NOTE | 2019-11-14 12:53 | EKG ---
Test Reason : Blood Pressure : / mmHG Vent. Rate : 075 BPM Atrial Rate : 075 BPM P-R Int : 134 ms QRS Dur : 096 ms QT Int : 396 ms P-R-T Axes : 013 044 026 degrees QTc Int : 442 ms Normal sinus rhythm Normal ECG Confirmed by AWA SALGADO ([id number]), videotape editor BARBARA WAYNE ([id number]) on 11/14/2019 12:52:35 PM Referred By: Confirmed By:AWA Cardoza
== END 2019-11-09 15:00 | disposition home or self-care (01) ==
LOC: ERS 14:35 → 2SE 21:57
PROVIDERS: ADMIT Internal Medicine; ATTEND Internal Medicine
PROC: 00JU3ZZ Inspection of Spinal Canal, Percutaneous Approach (ICD-10-PCS; principal; 2019-11-09)
DX: G93.2 Benign intracranial hypertension (principal); G43.919 Migraine, unspecified, intractable, without status migrainosus; F41.9 Anxiety disorder, unspecified; R73.03 Prediabetes; N39.0 Urinary tract infection, site not specified; K21.9 Gastro-esophageal reflux disease without esophagitis; E66.01 Morbid (severe) obesity due to excess calories; Z68.43 Body mass index [BMI] 50.0-59.9, adult; Z79.899 Other long term (current) drug therapy; Z86.73 Personal history of transient ischemic attack (TIA), and cerebral infarction without residual deficits; Z20.828 Contact with and (suspected) exposure to other viral communicable diseases
CPT/HCPCS: 36415; 36416; 62270; 70450; 71045; 78452; 80048; 80053; 84157; 84484; 85025; 85610; 87070; 87205; 87635; 89051; 93005; 93017; 96372; 96374; 96375; 96376; A9500; G0378; J0153; J0780; J1200; J1650; J2270; J2405; J2765; J3475; Q0163; U0003

== ENCOUNTER 2019-12-27 14:56 | Emergency (ER) | payer OTHER ==
[2019-12-27] MEDS ORDERED: Metoclopramide HCl 10 MG TAB ONE (16:43)
[2019-12-27 16:57] LABS: BHCG - Serum Negative (NEGATIVE); Pregs Control Background? CLEAR/WHITE (CLR/WHITE); Pregs Control Bar Appear? YES (CONTROL BAR)
[2019-12-27 17:06] LABS: ALT (SGPT) 24 U/L (8-55); AST (SGOT) 10 U/L (5-34); Albumin 3.9 g/dL (3.5-5.0); Alkaline Phosphatase 52 U/L (40-110); Anion Gap 17 mmol/L (10-20); BUN (Urea Nitrogen) 11 mg/dL (7.0-18.7); Bilirubin, Total 0.2 mg/dL (0.2-1.2); Calc. Creatinine Clearance 0 mL/min (70-130); Calcium 9.2 mg/dL (7.8-10.44); Carbon Dioxide 21 mmol/L (22-29); Chloride 106 mmol/L (98-107); Estimated GFR-MDRD 87; Globulin 3.5 g/dL (2.4-3.5); Glucose 142 mg/dL (70-105); Lipase 16 U/L (8-78); Potassium 3.7 mmol/L (3.5-5.1); Protein, Total 7.4 g/dL (6.0-8.3); Sodium 140 mmol/L (136-145)
[2019-12-27 18:56] LABS: Bilirubin Negative (Negative); Blood, Urine Negative (Negative); Clarity Clear (Clear); Glucose, Urine (Dipstick) Normal (Negative); Ketone, Urine Negative (Negative); Leukocyte 250 Leu/uL (Negative); Mucous/LPF Rare LPF (<2+); Nitrite Negative (Negative); Protein, Urine (Dipstick) 20 mg/dL (Neg-Trace); RBC/HPF 0-3 HPF (0-3); Specific Gravity, Urine 1.031 (1.002-1.036); pH, Urine 6.5 (5.0-9.0)
[2019-12-27 19:13] LABS: Bacteria/HPF 1+ HPF (None Seen)
== END 2019-12-27 20:18 | disposition home or self-care (01) ==
LOC: ERS 14:56
DX: R51.9 Headache, unspecified (principal); R30.0 Dysuria; R10.11 Right upper quadrant pain; E11.9 Type 2 diabetes mellitus without complications; Z79.899 Other long term (current) drug therapy
CPT/HCPCS: 36415; 80053; 81003; 81015; 83690; 84703; 99284

== ENCOUNTER 2020-01-02 16:37 | Emergency (ER) | payer OTHER ==
[2020-01-02] MEDS ORDERED: diphenhydrAMINE 25 MG CAP ONE (17:19)
[2020-01-02] MEDS ORDERED: Ketorolac Tromethamine 30 MG/ML VIAL ONE (17:19)
[2020-01-02] MEDS ORDERED: Metoclopramide HCl 10 MG TAB ONE (17:20)
[2020-01-02 17:53] LABS: Hemoglobin 14.3 g/dL (12.0-16.0); Mean Corpuscular HGB CONC 33.2 g/dL (32.0-36.0); Mean Corpuscular Hemoglobin 29.5 pg (27.0-31.0); Mean Corpuscular Volume 88.6 fL (78.0-98.0); Mean Platelet Volume 8.5 fL (7.4-10.4); Platelet Count 295 thou/uL (130-400); RBC Distribution Width 13.3 % (11.5-14.5); Red Blood Cell (RBC) Count 4.86 mill/uL (4.20-5.40); White Blood Cell (WBC) Count 9.7 thou/uL (4.8-10.8)
[2020-01-02 17:54] LABS: Bacteria/HPF None Seen HPF (None Seen); Bilirubin Negative (Negative); Blood, Urine Negative (Negative); Clarity Clear (Clear); Glucose, Urine (Dipstick) Normal (Negative); Ketone, Urine Negative (Negative); Leukocyte 75 Leu/uL (Negative); Mucous/LPF 1+ LPF (<2+); Nitrite Negative (Negative); Protein, Urine (Dipstick) 20 mg/dL (Neg-Trace); RBC/HPF 0-3 HPF (0-3); Specific Gravity, Urine 1.029 (1.002-1.036); WBC/HPF 0-3 HPF (0-3)
[2020-01-02 18:08] LABS: BHCG - Serum Negative (NEGATIVE); Pregs Control Background? CLEAR/WHITE (CLR/WHITE); Pregs Control Bar Appear? YES (CONTROL BAR)
[2020-01-02] MEDS ORDERED: Morphine 4 MG/ML VIAL ONE ×2 (18:15→18:52)
[2020-01-02 18:16] LABS: ALT (SGPT) 24 U/L (8-55); AST (SGOT) 11 U/L (5-34); Albumin 4.3 g/dL (3.5-5.0); Alkaline Phosphatase 61 U/L (40-110); Anion Gap 14 mmol/L (10-20); BUN (Urea Nitrogen) 13 mg/dL (7.0-18.7); Band 22 % (5-11); Bilirubin, Total 0.2 mg/dL (0.2-1.2); Calc. Creatinine Clearance 0 mL/min (70-130); Calcium 9.6 mg/dL (7.8-10.44); Carbon Dioxide 25 mmol/L (22-29); Chloride 105 mmol/L (98-107); Eosinophils 2 % (0-10); Estimated GFR-MDRD 85; Globulin 3.9 g/dL (2.4-3.5); Glucose 106 mg/dL (70-105); Lymphocytes 13 % (21-51); MDiff Complete? YES; Monocytes 3 % (0-10); Neutrophil 47 % (42-75); Platelet Morphology Comment Appears Adequate; Polychromasia SLIGHT = 2-3 cells (100X) (0-2/hpf); Potassium 3.6 mmol/L (3.5-5.1); Protein, Total 8.2 g/dL (6.0-8.3); Reactive Lymphocytes 13 % (0-10); Sodium 140 mmol/L (136-145)
== END 2020-01-02 19:40 | disposition home or self-care (01) ==
LOC: ERS 16:37
DX: R51.9 Headache, unspecified (principal); R30.0 Dysuria; R10.9 Unspecified abdominal pain
CPT/HCPCS: 36415; 80053; 81003; 81015; 84703; 85025; 96372; 99284; J1885; J2270; Q0163

== ENCOUNTER 2020-04-07 16:24 | Emergency (ER) | payer OTHER ==
[2020-04-07 17:11] LABS: #Basophils 0.1 thou/uL (0.0-0.2); #Eosinphils 0.4 thou/uL (0.0-0.7); #Lymphocytes 2.2 thou/uL (1.20-3.40); #Monocytes 0.8 thou/uL (0.11-0.59); %Basophils 0.7 % (0.0-1.0); %Eosinophils 4.7 % (0.0-10.0); %Lymphocytes 22.9 % (21.0-51.0); %Monocytes 8.1 % (0.0-10.0); %Neutrophils 63.7 % (42.0-75.0); Hemoglobin 13.3 g/dL (12.0-16.0); Mean Corpuscular Hemoglobin 29.3 pg (27.0-31.0); Mean Corpuscular Volume 88.7 fL (78.0-98.0); Mean Platelet Volume 7.5 fL (7.4-10.4); Platelet Count 300 thou/uL (130-400); RBC Distribution Width 13.1 % (11.5-14.5); Red Blood Cell (RBC) Count 4.53 mill/uL (4.20-5.40); White Blood Cell (WBC) Count 9.4 thou/uL (4.8-10.8)
[2020-04-07 17:23] LABS: BHCG - Serum Negative (NEGATIVE); Pregs Control Background? CLEAR/WHITE (CLR/WHITE); Pregs Control Bar Appear? YES (CONTROL BAR)
[2020-04-07 17:29] LABS: Bilirubin Negative (Negative); Blood, Urine Negative (Negative); Clarity Clear (Clear); Glucose, Urine (Dipstick) Normal (Negative); Ketone, Urine Negative (Negative); Leukocyte Negative Leu/uL (Negative); Nitrite Negative (Negative); Protein, Urine (Dipstick) 20 mg/dL (Neg-Trace); Specific Gravity, Urine 1.032 (1.002-1.036); Urobilinogen Normal mg/dL (Less than 2); pH, Urine 5.5 (5.0-9.0)
[2020-04-07 17:35] LABS: ALT (SGPT) 19 U/L (8-55); AST (SGOT) 13 U/L (5-34); Albumin 4.1 g/dL (3.5-5.0); Alkaline Phosphatase 67 U/L (40-110); Anion Gap 13 mmol/L (10-20); BUN (Urea Nitrogen) 12 mg/dL (7.0-18.7); Bilirubin, Total 0.2 mg/dL (0.2-1.2); Calc. Creatinine Clearance 0 mL/min (70-130); Calcium 9.5 mg/dL (7.8-10.44); Carbon Dioxide 27 mmol/L (22-29); Chloride 103 mmol/L (98-107); Globulin 3.7 g/dL (2.4-3.5); Glucose 85 mg/dL (70-105); Lipase 24 U/L (8-78); Protein, Total 7.8 g/dL (6.0-8.3); Sodium 139 mmol/L (136-145)
--- NOTE | 2020-04-07 17:51 | RAD ---
PORTABLE CHEST: 04/07/20 PROVIDED CLINICAL HISTORY: Chest pain. FINDINGS: Comparison 11/06/19. Cardiac and mediastinal silhouette is within normal limits. No focal consolidation, pleural fluid or pneumothorax apparent. IMPRESSION: No evidence for an acute cardiopulmonary process. POS: EVELYN
[2020-04-07] MEDS ORDERED: Morphine 4 MG/ML VIAL ONE (18:09)
[2020-04-07] MEDS ORDERED: Ondansetron PF 4 MG/2 ML Vial ONE (18:09)
--- NOTE | 2020-04-07 18:38 | CT ---
CT ABDOMEN AND PELVIS WITHOUT CONTRAST 04/07/20 PROVIDED CLINICAL HISTORY: Right flank pain. FINDINGS: The visualized lung bases are free of significant opacity. The solid abdominal organs demonstrate an unremarkable unenhanced CT appearance. There is no evidence for urinary tract calculi or hydronephros is. There is no bowel dilatation, inflammatory fat stranding, free fluid or free air apparent. There is a normal appearance to the appendix. The gallbladder is decompressed. There is a 3.9 cm right adnexal hypodensity that statistically reflects a physiologic cyst but is inc ompletely characterized in the absence of IV contrast material. There is sclerosis noted about the right sacroiliac joint, which appears increased in conspicuity wit h respect to the 01/05/16 examination. There is subtle loss of cortical definition involving a portio n of the sacroiliac joint. This appears similar to the 06/17/19 examination. IMPRESSION: 1. No evidence for urinary tract calculi or hydronephrosis. 2. Chronic appearing changes of right sacroiliitis. POS: EVELYN
[2020-04-07] MEDS ORDERED: Ketorolac Tromethamine 30 MG/ML VIAL ONE (18:48)
[2020-04-07] MEDS ORDERED: Aspirin 325 MG TAB ONE (20:00)
== END 2020-04-07 20:07 | disposition home or self-care (01) ==
LOC: ERS 16:24
DX: R07.89 Other chest pain (principal); M46.1 Sacroiliitis, not elsewhere classified; R10.31 Right lower quadrant pain; I10 Essential (primary) hypertension; R11.2 Nausea with vomiting, unspecified; Z86.73 Personal history of transient ischemic attack (TIA), and cerebral infarction without residual deficits; G43.909 Migraine, unspecified, not intractable, without status migrainosus; Z79.899 Other long term (current) drug therapy
CPT/HCPCS: 71045; 74176; 80053; 81003; 83690; 84484; 84703; 85025; 93005; 96374; 96375; J1885; J2270; J2405

== ENCOUNTER 2020-05-07 13:06 | Emergency (ER) | payer OTHER ==
[2020-05-07 13:49] LABS: #Basophils 0.1 thou/uL (0.0-0.2); #Eosinphils 0.4 thou/uL (0.0-0.7); #Lymphocytes 1.8 thou/uL (1.20-3.40); #Monocytes 0.6 thou/uL (0.11-0.59); %Basophils 0.6 % (0.0-1.0); %Eosinophils 4.4 % (0.0-10.0); %Lymphocytes 20.3 % (21.0-51.0); %Monocytes 6.5 % (0.0-10.0); %Neutrophils 68.2 % (42.0-75.0); Hemoglobin 13.1 g/dL (12.0-16.0); Mean Corpuscular Hemoglobin 29.5 pg (27.0-31.0); Mean Corpuscular Volume 89.3 fL (78.0-98.0); Platelet Count 264 thou/uL (130-400); RBC Distribution Width 12.9 % (11.5-14.5); Red Blood Cell (RBC) Count 4.44 mill/uL (4.20-5.40); White Blood Cell (WBC) Count 8.8 thou/uL (4.8-10.8)
[2020-05-07 13:58] LABS: BHCG - Serum Negative (NEGATIVE); Pregs Control Background? CLEAR/WHITE (CLR/WHITE); Pregs Control Bar Appear? YES (CONTROL BAR)
[2020-05-07 14:07] LABS: ALT (SGPT) 17 U/L (8-55); AST (SGOT) 9 U/L (5-34); Alkaline Phosphatase 54 U/L (40-110); Anion Gap 15 mmol/L (10-20); BUN (Urea Nitrogen) 7 mg/dL (7.0-18.7); Bilirubin, Total 0.3 mg/dL (0.2-1.2); Calc. Creatinine Clearance 0 mL/min (70-130); Calcium 9.2 mg/dL (7.8-10.44); Carbon Dioxide 24 mmol/L (22-29); Chloride 103 mmol/L (98-107); Globulin 3.3 g/dL (2.4-3.5); Glucose 113 mg/dL (70-105); Protein, Total 7.3 g/dL (6.0-8.3); Sodium 138 mmol/L (136-145)
[2020-05-07] MEDS ORDERED: Haloperidol Lactate 5 MG/ML VIAL ONE (15:34)
[2020-05-07 15:53] LABS: Bilirubin Negative (Negative); Blood, Urine Negative (Negative); Clarity Clear (Clear); Glucose, Urine (Dipstick) Normal (Negative); Ketone, Urine Negative (Negative); Leukocyte 250 Leu/uL (Negative); Nitrite Negative (Negative); Protein, Urine (Dipstick) Negative (Neg-Trace); RBC/HPF 0-3 HPF (0-3); Specific Gravity, Urine 1.014 (1.002-1.036); Squamous Epithelial 0-3 HPF (0-3); Urobilinogen Normal mg/dL (Less than 2); WBC/HPF 0-3 HPF (0-3)
[2020-05-07 15:57] LABS: Bacteria/HPF 1+ HPF (None Seen)
[2020-05-07] MEDS ORDERED: Ketorolac Tromethamine 30 MG/ML VIAL ONE (17:41)
== END 2020-05-07 18:00 | disposition home or self-care (01) ==
LOC: ERS 13:06
DX: N83.202 Unspecified ovarian cyst, left side (principal); R51.9 Headache, unspecified; G93.2 Benign intracranial hypertension; E11.9 Type 2 diabetes mellitus without complications; Z86.73 Personal history of transient ischemic attack (TIA), and cerebral infarction without residual deficits
CPT/HCPCS: 36415; 74177; 80053; 81003; 81015; 83690; 84703; 85025; 96374; 96375; J1630; J1885; Q9967

== ENCOUNTER 2020-11-21 19:17 | Observation (INO) | payer OTHER ==
[2020-11-21] MEDS ORDERED: diphenhydrAMINE 12.5 MG/5 ML UDCUP ONE (21:30)
[2020-11-21] MEDS ORDERED: Dexamethasone 10 MG/ML VIAL ONE (21:30)
[2020-11-21] MEDS ORDERED: Metoclopramide 10 MG/10 ML UDCUP ONE (21:30)
[2020-11-21] MEDS ORDERED: Acetaminophen 500 MG TAB ONE (21:30)
[2020-11-21] MEDS ORDERED: diphenhydrAMINE 50 MG/ML VIAL ONE (21:32)
[2020-11-21] MEDS ORDERED: Metoclopramide HCl 10 MG/2 ML VIAL ONE (21:32)
[2020-11-21 22:01] LABS: #Basophils 0.1 thou/uL (0.0-0.2); #Eosinphils 0.2 thou/uL (0.0-0.7); #Monocytes 0.8 thou/uL (0.11-0.59); #Neutrophils 7.3 thou/uL (1.40-6.50); %Basophils 0.7 % (0.0-1.0); %Eosinophils 2.2 % (0.0-10.0); %Lymphocytes 19.5 % (21.0-51.0); %Monocytes 7.8 % (0.0-10.0); %Neutrophils 69.8 % (42.0-75.0); Hemoglobin 14.3 g/dL (12.0-16.0); Mean Corpuscular HGB CONC 32.6 g/dL (32.0-36.0); Mean Corpuscular Hemoglobin 29.2 pg (27.0-31.0); Mean Corpuscular Volume 89.6 fL (78.0-98.0); Mean Platelet Volume 7.7 fL (7.4-10.4); Platelet Count 305 thou/uL (130-400); RBC Distribution Width 13.3 % (11.5-14.5); Red Blood Cell (RBC) Count 4.88 mill/uL (4.20-5.40); White Blood Cell (WBC) Count 10.4 thou/uL (4.8-10.8)
[2020-11-21 22:27] LABS: ALT (SGPT) 21 U/L (8-55); AST (SGOT) 13 U/L (5-34); Albumin 4.3 g/dL (3.5-5.0); Alkaline Phosphatase 59 U/L (40-110); Anion Gap 16 mmol/L (10-20); BUN (Urea Nitrogen) 17 mg/dL (7.0-18.7); Bilirubin, Total 0.3 mg/dL (0.2-1.2); Calc. Creatinine Clearance 0 mL/min (70-130); Calcium 9.8 mg/dL (7.8-10.44); Carbon Dioxide 24 mmol/L (22-29); Chloride 106 mmol/L (98-107); Globulin 3.4 g/dL (2.4-3.5); Glucose 98 mg/dL (70-105); Potassium 4.5 mmol/L (3.5-5.1); Protein, Total 7.7 g/dL (6.0-8.3); Sodium 141 mmol/L (136-145)
[2020-11-21] MEDS ORDERED: Fentanyl 100 MCG/2 ML VIAL ONE (22:33)
[2020-11-21] MEDS ORDERED: Lidocaine 1% (PF) 30 ML VIAL ONE (22:33)
[2020-11-21 22:43] LABS: BHCG - Serum Negative (NEGATIVE); Pregs Control Background? CLEAR/WHITE (CLR/WHITE); Pregs Control Bar Appear? YES (CONTROL BAR)
[2020-11-21 23:15] LABS: Bilirubin Negative (Negative); Blood, Urine Negative (Negative); Clarity Clear (Clear); Glucose, Urine (Dipstick) Normal (Negative); Ketone, Urine Negative (Negative); Leukocyte Negative Leu/uL (Negative); Nitrite Negative (Negative); Protein, Urine (Dipstick) Negative (Neg-Trace); Specific Gravity, Urine 1.025 (1.002-1.036); Urobilinogen Normal mg/dL (Less than 2); pH, Urine 6.5 (5.0-9.0)
[2020-11-21] MEDS ORDERED: AcetaZOLAMIDE 250 MG TAB PO SCH (23:30)
[2020-11-22 01:09] LABS: SARS-CoV-2 NAA Rapid Test Not Detected (NotDetected)
[2020-11-22 01:30] VITALS: BMI 47.2
[2020-11-22] MEDS ORDERED: Ondansetron PF 4 MG/2 ML Vial IVP PRN (02:30)
[2020-11-22] MEDS ORDERED: Acetaminophen 650 MG Suppository PR PRN (02:30)
[2020-11-22] MEDS ORDERED: Ondansetron ODT 4 MG TAB PO PRN (02:30)
[2020-11-22] MEDS ORDERED: Acetaminophen 325 MG TAB PO PRN (02:30)
[2020-11-22] MEDS: SUMAtriptan Succinate 50 MG TAB PO PRN ×3 (06:31→23:19)
[2020-11-22 06:59] LABS: #Basophils 0.1 thou/uL (0.0-0.2); #Monocytes 0.1 thou/uL (0.11-0.59); #Neutrophils 8.9 thou/uL (1.40-6.50); %Basophils 0.6 % (0.0-1.0); %Eosinophils 0.3 % (0.0-10.0); %Monocytes 1.4 % (0.0-10.0); %Neutrophils 87.7 % (42.0-75.0); Hemoglobin 13.1 g/dL (12.0-16.0); Mean Corpuscular HGB CONC 31.5 g/dL (32.0-36.0); Mean Corpuscular Hemoglobin 28.4 pg (27.0-31.0); Mean Corpuscular Volume 90.2 fL (78.0-98.0); Mean Platelet Volume 7.7 fL (7.4-10.4); Platelet Count 326 thou/uL (130-400); White Blood Cell (WBC) Count 10.1 thou/uL (4.8-10.8)
[2020-11-22 07:20] LABS: Anion Gap 11 mmol/L (10-20); BUN (Urea Nitrogen) 10 mg/dL (7.0-18.7); Calc. Creatinine Clearance 185 mL/min (70-130); Calcium 9.8 mg/dL (7.8-10.44); Carbon Dioxide 22 mmol/L (22-29); Chloride 107 mmol/L (98-107); Glucose 207 mg/dL (70-105); Potassium 4.3 mmol/L (3.5-5.1); Sodium 136 mmol/L (136-145)
[2020-11-22] MEDS: Amitriptyline HCl 10 MG TAB PO SCH (09:32)
[2020-11-22] MEDS: Topiramate 25 MG TAB PO SCH ×2 (09:33→21:24)
[2020-11-22 10:26] LABS: CSF Source CSF; Clarity Clear (Clear); Tube # 4
[2020-11-22 10:27] LABS: CSF Source CSF; Clarity Clear (Clear); Tube # 1
[2020-11-22 10:46] LABS: CSF RBC Count - Manual 1 /cu.mm (None Seen); CSF WBC/NonHematics Count-Man 1 /cu.mm (0-5)
[2020-11-22 10:47] LABS: CSF RBC Count - Manual 1 /cu.mm (None Seen); CSF WBC/NonHematics Count-Man 0 /cu.mm (0-5)
[2020-11-22 10:57] LABS: Color Of CSF Supernatant COLORLESS (Colorless); Tube # 1; Unspun CSF Color COLORLESS (Colorless)
[2020-11-22 11:06] LABS: CSF, Glucose 114 mg/dl (40-70); CSF, Protein 34 mg/dL (15-40)
[2020-11-22] MEDS: diphenhydrAMINE 50 MG/ML VIAL IVP SCH ×2 (13:15→23:25)
[2020-11-22] MEDS: Prochlorperazine 10 MG/2 ML VIAL IVP SCH ×3 (13:15→23:26)
[2020-11-23] MEDS: Prochlorperazine 10 MG/2 ML VIAL IVP SCH ×2 (01:25→06:16)
[2020-11-23] MEDS: diphenhydrAMINE 50 MG/ML VIAL IVP SCH ×2 (01:25→06:16)
[2020-11-23 08:35] VITALS: BP 98/65; TEMP 98.4
[2020-11-23] MEDS: Topiramate 25 MG TAB PO SCH (08:41)
[2020-11-23] MEDS: Amitriptyline HCl 10 MG TAB PO SCH (08:41)
[2020-11-23] MEDS: SUMAtriptan Succinate 50 MG TAB PO PRN (10:07)
== END 2020-11-23 13:30 | disposition home or self-care (01) ==
LOC: ERS 19:17 → T4-A 11-22 00:01
PROVIDERS: ADMIT Student in an Organized Health Care Education/Training Program; ATTEND Internal Medicine
DX: G93.5 Compression of brain (principal); K76.0 Fatty (change of) liver, not elsewhere classified; R73.03 Prediabetes; E66.01 Morbid (severe) obesity due to excess calories; Z68.42 Body mass index [BMI] 45.0-49.9, adult; Z20.822 Contact with and (suspected) exposure to COVID-19; Z86.73 Personal history of transient ischemic attack (TIA), and cerebral infarction without residual deficits
CPT/HCPCS: 36415; 62270; 70450; 70553; 76705; 80048; 80053; 81003; 82945; 84157; 84703; 85025; 89051; 96365; 96375; 96376; G0378; J0780; J1100; J1200; J2001; J2765; J3010; Q0163; U0002

== ENCOUNTER 2021-06-19 12:06 | Inpatient (IN) | payer OTHER ==
[2021-06-19] MEDS ORDERED: Metoclopramide HCl 10 MG/2 ML VIAL ONE (14:30)
[2021-06-19] MEDS ORDERED: Aspirin Chewable 81 MG TAB ONE (14:30)
[2021-06-19] MEDS ORDERED: Ketorolac Tromethamine 30 MG/ML VIAL ONE (14:30)
[2021-06-19] MEDS ORDERED: diphenhydrAMINE 50 MG/ML VIAL ONE (14:30)
[2021-06-19 15:01] LABS: #Basophils 0.1 thou/uL (0.0-0.2); #Eosinphils 0.3 thou/uL (0.0-0.7); #Lymphocytes 2.5 thou/uL (1.20-3.40); #Monocytes 0.7 thou/uL (0.11-0.59); #Neutrophils 6.8 thou/uL (1.40-6.50); %Basophils 0.8 % (0.0-1.0); %Eosinophils 2.9 % (0.0-10.0); %Lymphocytes 23.8 % (21.0-51.0); %Monocytes 6.9 % (0.0-10.0); %Neutrophils 65.6 % (42.0-75.0); Hemoglobin 13.3 g/dL (12.0-16.0); Mean Corpuscular HGB CONC 33.1 g/dL (32.0-36.0); Mean Corpuscular Hemoglobin 29.8 pg (27.0-31.0); Mean Corpuscular Volume 89.8 fL (78.0-98.0); Mean Platelet Volume 7.4 fL (7.4-10.4); Platelet Count 327 thou/uL (130-400); RBC Distribution Width 13.1 % (11.5-14.5); Red Blood Cell (RBC) Count 4.45 mill/uL (4.20-5.40); White Blood Cell (WBC) Count 10.4 thou/uL (4.8-10.8)
[2021-06-19 15:25] LABS: ALT (SGPT) 18 U/L (8-55); AST (SGOT) 9 U/L (5-34); Albumin 4.1 g/dL (3.5-5.0); Alkaline Phosphatase 55 U/L (40-110); Anion Gap 13 mmol/L (10-20); BUN (Urea Nitrogen) 12 mg/dL (7.0-18.7); Bilirubin, Total 0.3 mg/dL (0.2-1.2); Calc. Creatinine Clearance 0 mL/min (70-130); Calcium 9.6 mg/dL (7.8-10.44); Carbon Dioxide 27 mmol/L (22-29); Chloride 104 mmol/L (98-107); Globulin 3.1 g/dL (2.4-3.5); Glucose 95 mg/dL (70-105); Protein, Total 7.2 g/dL (6.0-8.3); Sodium 140 mmol/L (136-145)
[2021-06-19 16:09] LABS: Bilirubin Negative (Negative); Blood, Urine Negative (Negative); Clarity Clear (Clear); Glucose, Urine (Dipstick) Normal (Negative); Ketone, Urine Negative (Negative); Leukocyte 25 Leu/uL (Negative); Nitrite Negative (Negative); Protein, Urine (Dipstick) Negative (Neg-Trace); RBC/HPF 0-3 HPF (0-3); Specific Gravity, Urine 1.025 (1.002-1.036); Urobilinogen Normal mg/dL (Less than 2); WBC/HPF 0-3 HPF (0-3); pH, Urine 5.5 (5.0-9.0)
[2021-06-19 16:10] LABS: Bacteria/HPF Rare-Few HPF (None Seen)
[2021-06-19] MEDS ORDERED: Ondansetron PF 4 MG/2 ML Vial IVP PRN (17:23)
[2021-06-19] MEDS ORDERED: Bisacodyl 5 MG TAB PO PRN (17:23)
[2021-06-19] MEDS ORDERED: Acetaminophen 325 MG TAB PO PRN (17:23)
[2021-06-19] MEDS ORDERED: Ondansetron ODT 4 MG TAB PO PRN (17:23)
[2021-06-19] MEDS ORDERED: Calcium Carbonate 500 MG ChewTAB PO PRN (17:23)
[2021-06-19] MEDS ORDERED: Senokot S 8.6-50 MG TAB PO PRN (17:23)
[2021-06-19 17:37] LABS: Pregnancy Test - Urine (BHCG) Negative (Negative); Pregu Control Background? CLEAR/WHITE (CLR/WHITE); Pregu Control Bar Appear? YES (CONTROL BAR); Specific Gravity 1.025 (1.002-1.036)
[2021-06-19 19:00] LABS: Amphetamine Not Detected (NotDetected); Barbiturates Screen Not Detected (NotDetected); Benzodiazepine Screen Not Detected (NotDetected); Cocaine Metabolite Screen Not Detected (NotDetected); Methadone Not Detected (NotDetected); Methamphetamine Not Detected (NotDetected); Opiate Screen Not Detected (NotDetected); Oxycodone Screen Not Detected (NotDetected); Phencyclidine (PCP) Not Detected (NotDetected); THC/Cannabinoid Screen Not Detected (NotDetected); Tricyclic Screen Not Detected (NotDetected)
[2021-06-19 19:59] LABS: Troponin I Less than 0.010 ng/mL (< 0.028)
[2021-06-19] MEDS ORDERED: Nitroglycerin 0.4 MG TAB (25 Tab Bottle) SL PRN (20:29)
[2021-06-19] MEDS: Atorvastatin Calcium 40 MG TAB PO SCH (21:34)
[2021-06-19 22:09] LABS: Troponin I Less than 0.010 ng/mL (< 0.028)
[2021-06-19 22:14] VITALS: BMI 53.1
[2021-06-19 23:03] LABS: SARS-CoV-2 NAA Rapid Test Not Detected (NotDetected)
[2021-06-20 05:49] LABS: #Eosinphils 0.3 thou/uL (0.0-0.7); #Monocytes 0.6 thou/uL (0.11-0.59); #Neutrophils 5.6 thou/uL (1.40-6.50); %Basophils 0.5 % (0.0-1.0); %Eosinophils 3.3 % (0.0-10.0); %Lymphocytes 23.2 % (21.0-51.0); %Monocytes 7.1 % (0.0-10.0); Hemoglobin 11.7 g/dL (12.0-16.0); Mean Corpuscular Hemoglobin 30.5 pg (27.0-31.0); Mean Corpuscular Volume 89.7 fL (78.0-98.0); Mean Platelet Volume 7.2 fL (7.4-10.4); Platelet Count 265 thou/uL (130-400); RBC Distribution Width 13.1 % (11.5-14.5); Red Blood Cell (RBC) Count 3.83 mill/uL (4.20-5.40); White Blood Cell (WBC) Count 8.4 thou/uL (4.8-10.8)
[2021-06-20 06:01] LABS: Hemoglobin A1c 6.3 % (4.0-6.0); PTT 32.8 sec (22.9-36.1); Prothrombin Time 13.7 sec (12.0-14.7)
[2021-06-20 06:21] LABS: Anion Gap 13 mmol/L (10-20); BUN (Urea Nitrogen) 11 mg/dL (7.0-18.7); Calc. Creatinine Clearance 268 mL/min (70-130); Calcium 8.6 mg/dL (7.8-10.44); Carbon Dioxide 24 mmol/L (22-29); Cardiac Risk 4.3 (Less than 4.5); Chloride 106 mmol/L (98-107); Cholesterol 147 mg/dl (< 200 Desired); Glucose 121 mg/dL (70-105); HDL Cholesterol 34 mg/dL (>60 Neg Risk); LDL Cholesterol, Calculated 86 mg/dL; Magnesium 1.8 mg/dL (1.6-2.6); Sodium 139 mmol/L (136-145); Triglycerides 135 mg/dL (Less than 150)
[2021-06-20] MEDS: Amitriptyline HCl 10 MG TAB PO SCH (08:59)
[2021-06-20] MEDS: Topiramate 25 MG TAB PO SCH ×2 (08:59→21:31)
[2021-06-20] MEDS ORDERED: Enoxaparin Sodium 40 MG/0.4 ML SYRINGE SC SCH (09:00)
[2021-06-20] MEDS ORDERED: Prochlorperazine 10 MG/2 ML VIAL IVP SCH ×2 (13:00→18:00)
[2021-06-20] MEDS ORDERED: diphenhydrAMINE 50 MG/ML VIAL IVP SCH ×2 (13:00→18:00)
[2021-06-20] MEDS: Prochlorperazine 10 MG/2 ML VIAL IVP PRN (15:31)
[2021-06-20] MEDS: diphenhydrAMINE 50 MG/ML VIAL IVP PRN (15:31)
[2021-06-20] MEDS: Aspirin 81 mg Enteric Coated Tablet PO SCH (15:35)
[2021-06-20 16:17] LABS: CSF Source CSF; Clarity Clear (Clear); Tube # 3
[2021-06-20 16:28] LABS: Color Of CSF Supernatant COLORLESS (Colorless); Tube # 1; Unspun CSF Color COLORLESS (Colorless)
[2021-06-20 16:30] LABS: CSF, Glucose 64 mg/dl (40-70); CSF, Protein 26 mg/dL (15-40)
[2021-06-20] MEDS: Atorvastatin Calcium 40 MG TAB PO SCH (21:30)
[2021-06-21] MEDS: Aspirin 81 mg Enteric Coated Tablet PO SCH (08:48)
[2021-06-21] MEDS: Amitriptyline HCl 10 MG TAB PO SCH (08:48)
[2021-06-21 09:19] LABS: #Eosinphils 0.3 thou/uL (0.0-0.7); #Lymphocytes 1.8 thou/uL (1.20-3.40); #Monocytes 0.7 thou/uL (0.11-0.59); #Neutrophils 6.7 thou/uL (1.40-6.50); %Eosinophils 2.8 % (0.0-10.0); %Lymphocytes 19.1 % (21.0-51.0); %Monocytes 7.1 % (0.0-10.0); %Neutrophils 71.1 % (42.0-75.0); Hemoglobin 13.7 g/dL (12.0-16.0); Mean Corpuscular HGB CONC 32.6 g/dL (32.0-36.0); Mean Corpuscular Hemoglobin 29.3 pg (27.0-31.0); Mean Corpuscular Volume 89.7 fL (78.0-98.0); Mean Platelet Volume 7.4 fL (7.4-10.4); Platelet Count 301 thou/uL (130-400); RBC Distribution Width 13.1 % (11.5-14.5); Red Blood Cell (RBC) Count 4.68 mill/uL (4.20-5.40); White Blood Cell (WBC) Count 9.5 thou/uL (4.8-10.8)
[2021-06-21 09:37] LABS: Anion Gap 14 mmol/L (10-20); BUN (Urea Nitrogen) 10 mg/dL (7.0-18.7); Calc. Creatinine Clearance 229 mL/min (70-130); Calcium 9.4 mg/dL (7.8-10.44); Carbon Dioxide 22 mmol/L (22-29); Chloride 106 mmol/L (98-107); Glucose 118 mg/dL (70-105); Magnesium 1.9 mg/dL (1.6-2.6); Sodium 138 mmol/L (136-145)
[2021-06-21] MEDS: Topiramate 25 MG TAB PO SCH ×2 (10:43→21:14)
[2021-06-21] MEDS ORDERED: hydrALAZINE 20 MG/ML VIAL SLOW IVP PRN (12:15)
[2021-06-21] MEDS: diphenhydrAMINE 50 MG/ML VIAL IVP PRN ×2 (12:24→14:42)
[2021-06-21] MEDS: Prochlorperazine 10 MG/2 ML VIAL IVP PRN ×2 (12:29→14:42)
[2021-06-21] MEDS ORDERED: Amlodipine 5 MG TAB PO SCH (19:30)
[2021-06-21] MEDS: Atorvastatin Calcium 40 MG TAB PO SCH (21:14)
[2021-06-21] MEDS: AcetaZOLAMIDE 250 MG TAB PO SCH (21:14)
[2021-06-22 05:24] LABS: #Eosinphils 0.3 thou/uL (0.0-0.7); #Lymphocytes 1.8 thou/uL (1.20-3.40); #Monocytes 0.7 thou/uL (0.11-0.59); #Neutrophils 6.6 thou/uL (1.40-6.50); %Basophils 0.5 % (0.0-1.0); %Eosinophils 3.2 % (0.0-10.0); %Lymphocytes 19.2 % (21.0-51.0); %Monocytes 7.4 % (0.0-10.0); %Neutrophils 69.8 % (42.0-75.0); Hemoglobin 12.7 g/dL (12.0-16.0); Mean Corpuscular HGB CONC 33.5 g/dL (32.0-36.0); Mean Corpuscular Volume 89.5 fL (78.0-98.0); Mean Platelet Volume 7.3 fL (7.4-10.4); Platelet Count 273 thou/uL (130-400); RBC Distribution Width 13.1 % (11.5-14.5); Red Blood Cell (RBC) Count 4.23 mill/uL (4.20-5.40); White Blood Cell (WBC) Count 9.4 thou/uL (4.8-10.8)
[2021-06-22 05:34] LABS: Anion Gap 12 mmol/L (10-20); BUN (Urea Nitrogen) 11 mg/dL (7.0-18.7); Calc. Creatinine Clearance 232 mL/min (70-130); Calcium 8.9 mg/dL (7.8-10.44); Carbon Dioxide 22 mmol/L (22-29); Chloride 107 mmol/L (98-107); Glucose 155 mg/dL (70-105); Magnesium 1.8 mg/dL (1.6-2.6); Potassium 3.7 mmol/L (3.5-5.1); Sodium 137 mmol/L (136-145)
[2021-06-22] MEDS: Amitriptyline HCl 10 MG TAB PO SCH (08:52)
[2021-06-22] MEDS: Topiramate 25 MG TAB PO SCH (08:52)
[2021-06-22] MEDS: Aspirin 81 mg Enteric Coated Tablet PO SCH (08:52)
[2021-06-22] MEDS: AcetaZOLAMIDE 250 MG TAB PO SCH (08:53)
[2021-06-22 08:59] VITALS: BP 124/79; TEMP 97.9
[2021-06-22] MEDS ORDERED: Amlodipine 5 MG TAB PO SCH (09:00)
== END 2021-06-22 11:12 | disposition home or self-care (01) | DRG 103 ==
LOC: ERS 12:06 → NEURO 17:26 → OBSVTOIN 06-20 13:53
PROVIDERS: ADMIT Internal Medicine; ATTEND Internal Medicine
DX: G93.2 Benign intracranial hypertension (principal); Z68.43 Body mass index [BMI] 50.0-59.9, adult; G43.919 Migraine, unspecified, intractable, without status migrainosus; E66.01 Morbid (severe) obesity due to excess calories; R07.89 Other chest pain; Z20.822 Contact with and (suspected) exposure to COVID-19; K29.50 Unspecified chronic gastritis without bleeding; Z86.73 Personal history of transient ischemic attack (TIA), and cerebral infarction without residual deficits; Z90.49 Acquired absence of other specified parts of digestive tract; Z82.49 Family history of ischemic heart disease and other diseases of the circulatory system; Z83.3 Family history of diabetes mellitus; Z83.2 Family history of diseases of the blood and blood-forming organs and certain disorders involving the immune mechanism; Z79.899 Other long term (current) drug therapy
CPT/HCPCS: 36415; 36416; 62270; 70450; 71045; 72125; 78452; 80048; 80053; 80061; 80306; 81003; 81015; 81025; 82945; 83036; 83735; 84157; 84443; 84484; 85025; 85610; 85730; 89051; 93005; 93010; 93017; 93306; 93880; A9500; J0153; J0360; J0780; J1200; J1885; J2765; U0002

== ENCOUNTER 2021-11-07 23:35 | Emergency (ER) | payer OTHER ==
[2021-11-08 00:54] LABS: #Eosinphils 0.4 thou/uL (0.0-0.7); #Lymphocytes 2.5 thou/uL (1.20-3.40); #Monocytes 0.7 thou/uL (0.11-0.59); #Neutrophils 6.2 thou/uL (1.40-6.50); %Basophils 0.3 % (0.0-1.0); %Eosinophils 4.3 % (0.0-10.0); %Lymphocytes 25.3 % (21.0-51.0); %Monocytes 6.7 % (0.0-10.0); %Neutrophils 63.4 % (42.0-75.0); Hemoglobin 13.3 g/dL (12.0-16.0); Mean Corpuscular HGB CONC 33.5 g/dL (32.0-36.0); Mean Corpuscular Hemoglobin 30.2 pg (27.0-31.0); Mean Corpuscular Volume 90.1 fL (78.0-98.0); Mean Platelet Volume 7.8 fL (7.4-10.4); Platelet Count 246 thou/uL (130-400); RBC Distribution Width 12.9 % (11.5-14.5); Red Blood Cell (RBC) Count 4.41 mill/uL (4.20-5.40); White Blood Cell (WBC) Count 9.7 thou/uL (4.8-10.8)
[2021-11-08 00:59] LABS: Bilirubin Negative (Negative); Blood, Urine Negative (Negative); Clarity Clear (Clear); Glucose, Urine (Dipstick) Normal (Negative); Ketone, Urine Negative (Negative); Leukocyte Negative Leu/uL (Negative); Nitrite Negative (Negative); Protein, Urine (Dipstick) Negative (Neg-Trace); Specific Gravity, Urine 1.022 (1.002-1.036); pH, Urine 6.5 (5.0-9.0)
[2021-11-08 01:04] LABS: Pregnancy Test - Urine (BHCG) Negative (Negative); Pregu Control Background? CLEAR/WHITE (CLR/WHITE); Pregu Control Bar Appear? YES (CONTROL BAR)
[2021-11-08 01:05] LABS: Specific Gravity 1.022 (1.002-1.036)
[2021-11-08 01:11] LABS: ALT (SGPT) 23 U/L (8-55); AST (SGOT) 11 U/L (5-34); Albumin 3.8 g/dL (3.5-5.0); Alkaline Phosphatase 68 U/L (40-110); Anion Gap 13 mmol/L (10-20); BUN (Urea Nitrogen) 11 mg/dL (7.0-18.7); Bilirubin, Total 0.3 mg/dL (0.2-1.2); Calc. Creatinine Clearance 0 mL/min (70-130); Calcium 9.4 mg/dL (7.8-10.44); Carbon Dioxide 24 mmol/L (22-29); Chloride 105 mmol/L (98-107); Estimated GFR 111; Globulin 3.3 g/dL (2.4-3.5); Glucose 104 mg/dL (70-105); Potassium 3.8 mmol/L (3.5-5.1); Protein, Total 7.1 g/dL (6.0-8.3); Sodium 138 mmol/L (136-145)
[2021-11-08] MEDS ORDERED: Ketorolac Tromethamine 30 MG/ML VIAL ONE (02:17)
[2021-11-08] MEDS ORDERED: Iopamidol 370 76% 100 ML VIAL ONE (08:53)
== END 2021-11-08 04:55 | disposition home or self-care (01) ==
LOC: ERS 23:35
DX: N83.202 Unspecified ovarian cyst, left side (principal); N83.201 Unspecified ovarian cyst, right side; E11.9 Type 2 diabetes mellitus without complications; Z86.73 Personal history of transient ischemic attack (TIA), and cerebral infarction without residual deficits
CPT/HCPCS: 36415; 74177; 80053; 81003; 81025; 85025; 96374; J1885; Q9967

== ENCOUNTER 2021-12-02 11:06 | Emergency (ER) | payer OTHER ==
[2021-12-02 11:39] LABS: #Basophils 0.1 thou/uL (0.0-0.2); #Eosinphils 0.3 thou/uL (0.0-0.7); #Lymphocytes 1.9 thou/uL (1.20-3.40); #Monocytes 0.4 thou/uL (0.11-0.59); #Neutrophils 6.5 thou/uL (1.40-6.50); %Basophils 0.7 % (0.0-1.0); %Eosinophils 2.9 % (0.0-10.0); %Lymphocytes 20.5 % (21.0-51.0); %Monocytes 4.1 % (0.0-10.0); %Neutrophils 71.9 % (42.0-75.0); Hemoglobin 13.4 g/dL (12.0-16.0); Mean Corpuscular HGB CONC 33.1 g/dL (32.0-36.0); Mean Corpuscular Hemoglobin 29.8 pg (27.0-31.0); Mean Platelet Volume 7.8 fL (7.4-10.4); Platelet Count 321 thou/uL (130-400); RBC Distribution Width 12.8 % (11.5-14.5); White Blood Cell (WBC) Count 9.1 thou/uL (4.8-10.8)
[2021-12-02 11:53] LABS: ALT (SGPT) 17 U/L (8-55); AST (SGOT) 9 U/L (5-34); Alkaline Phosphatase 50 U/L (40-110); Anion Gap 12 mmol/L (10-20); BUN (Urea Nitrogen) 8 mg/dL (7.0-18.7); Bilirubin, Total 0.4 mg/dL (0.2-1.2); Calc. Creatinine Clearance 0 mL/min (70-130); Calcium 9.1 mg/dL (7.8-10.44); Carbon Dioxide 27 mmol/L (22-29); Chloride 104 mmol/L (98-107); Estimated GFR 106; Globulin 3.2 g/dL (2.4-3.5); Glucose 132 mg/dL (70-105); Potassium 3.6 mmol/L (3.5-5.1); Protein, Total 7.2 g/dL (6.0-8.3); Sodium 139 mmol/L (136-145)
[2021-12-02 12:19] LABS: Pregnancy Test - Urine (BHCG) Negative (Negative); Pregu Control Background? CLEAR/WHITE (CLR/WHITE); Pregu Control Bar Appear? YES (CONTROL BAR)
[2021-12-02 12:28] LABS: Specific Gravity 1.022 (1.002-1.036)
[2021-12-02 12:34] LABS: Bilirubin Negative (Negative); Blood, Urine Negative (Negative); Glucose, Urine (Dipstick) 30 mg/dL (Negative); Ketone, Urine Negative (Negative); Leukocyte 250 Leu/uL (Negative); Nitrite Negative (Negative); Protein, Urine (Dipstick) 30 mg/dL (Neg-Trace); RBC/HPF 0-3 HPF (0-3); Specific Gravity, Urine 1.022 (1.002-1.036)
[2021-12-02 12:40] LABS: Bacteria/HPF Rare-Few HPF (None Seen); Clarity Hazy (Clear)
[2021-12-02] MEDS ORDERED: Prochlorperazine Maleate 5 MG TAB ONE (13:13)
[2021-12-02] MEDS ORDERED: Acetaminophen 500 MG TAB ONE (13:13)
[2021-12-02] MEDS ORDERED: Ketorolac Tromethamine 30 MG/ML VIAL ONE (13:13)
[2021-12-02] MEDS ORDERED: Prochlorperazine Maleate 5 MG TAB PO SCH (13:15)
== END 2021-12-02 14:43 | disposition home or self-care (01) ==
LOC: ERS 11:06
DX: R51.9 Headache, unspecified (principal); R10.9 Unspecified abdominal pain; G89.29 Other chronic pain; Z86.73 Personal history of transient ischemic attack (TIA), and cerebral infarction without residual deficits; Z79.899 Other long term (current) drug therapy
CPT/HCPCS: 36415; 36416; 80053; 81003; 81015; 81025; 85025; 96372; 99284; J1885; Q0164

== ENCOUNTER 2022-01-20 11:08 | Emergency (ER) | payer OTHER ==
[2022-01-20 12:06] LABS: #Eosinphils 0.3 thou/uL (0.0-0.7); #Lymphocytes 1.6 thou/uL (1.20-3.40); #Monocytes 0.6 thou/uL (0.11-0.59); #Neutrophils 6.5 thou/uL (1.40-6.50); %Basophils 0.3 % (0.0-1.0); %Eosinophils 3.2 % (0.0-10.0); %Lymphocytes 17.7 % (21.0-51.0); %Monocytes 6.1 % (0.0-10.0); %Neutrophils 72.8 % (42.0-75.0); Hemoglobin 12.6 g/dL (12.0-16.0); Mean Corpuscular HGB CONC 31.8 g/dL (32.0-36.0); Mean Corpuscular Hemoglobin 28.8 pg (27.0-31.0); Mean Corpuscular Volume 90.6 fl (78.0-98.0); Mean Platelet Volume 7.8 fL (7.4-10.4); Platelet Count 372 10x3/uL (130-400); RBC Distribution Width 12.9 % (11.5-14.5); Red Blood Cell (RBC) Count 4.36 mill/uL (4.20-5.40)
[2022-01-20 12:25] LABS: Bacteria/HPF None Seen HPF (None Seen); Bilirubin Negative (Negative); Blood, Urine Negative (Negative); Clarity Clear (Clear); Glucose, Urine (Dipstick) Normal (Negative); Ketone, Urine Negative (Negative); Leukocyte 250 Leu/uL (Negative); Nitrite Negative (Negative); Protein, Urine (Dipstick) 10 mg/dL (Neg-Trace); RBC/HPF 0-3 HPF (0-3); Specific Gravity, Urine 1.025 (1.002-1.036); Squamous Epithelial 0-3 HPF (0-3); Urobilinogen Normal mg/dL (Less than 2); WBC/HPF None Seen HPF (0-3)
[2022-01-20 12:32] LABS: ALT (SGPT) 16 U/L (8-55); AST (SGOT) 8 U/L (5-34); Albumin 4.1 g/dL (3.5-5.0); Alkaline Phosphatase 55 U/L (40-110); Anion Gap 12 mmol/L (10-20); BUN (Urea Nitrogen) 11 mg/dL (7.0-18.7); Bilirubin, Total 0.3 mg/dL (0.2-1.2); Calc. Creatinine Clearance 0 mL/min (70-130); Calcium 9.4 mg/dL (7.8-10.44); Carbon Dioxide 27 mmol/L (22-29); Chloride 105 mmol/L (98-107); Estimated GFR 115; Globulin 3.1 g/dL (2.4-3.5); Glucose 124 mg/dL (70-105); Potassium 4.4 mmol/L (3.5-5.1); Protein, Total 7.2 g/dL (6.0-8.3); Sodium 140 mmol/L (136-145)
== END 2022-01-20 13:48 | disposition home or self-care (01) ==
LOC: ERS 11:08
DX: R07.2 Precordial pain (principal); R10.13 Epigastric pain
CPT/HCPCS: 36415; 71045; 80053; 81003; 81015; 84484; 85025; 93005

== ENCOUNTER 2022-03-16 09:25 | Emergency (ER) | payer OTHER ==
[2022-03-16 09:53] LABS: Bacteria/HPF None Seen HPF (None Seen); Bilirubin Negative (Negative); Blood, Urine Negative (Negative); Clarity Clear (Clear); Glucose, Urine (Dipstick) Normal (Negative); Ketone, Urine Negative (Negative); Leukocyte 250 Leu/uL (Negative); Nitrite Negative (Negative); Protein, Urine (Dipstick) 10 mg/dL (Neg-Trace); RBC/HPF 0-3 HPF (0-3); Urobilinogen Normal mg/dL (Less than 2); WBC/HPF 0-3 HPF (0-3); pH, Urine 6.5 (5.0-9.0)
[2022-03-16] MEDS ORDERED: Iopamidol-370 76% 500 ML 1 ML ONE (09:54)
[2022-03-16 09:57] LABS: Pregnancy Test - Urine (BHCG) Negative (Negative); Pregu Control Background? CLEAR/WHITE (CLR/WHITE); Pregu Control Bar Appear? YES (CONTROL BAR)
[2022-03-16 10:52] LABS: #Eosinphils 0.2 thou/uL (0.0-0.7); #Lymphocytes 1.3 thou/uL (1.20-3.40); #Monocytes 0.5 thou/uL (0.11-0.59); #Neutrophils 3.8 thou/uL (1.40-6.50); %Basophils 0.4 % (0.0-1.0); %Eosinophils 4.2 % (0.0-10.0); %Lymphocytes 22.5 % (21.0-51.0); %Monocytes 8.1 % (0.0-10.0); %Neutrophils 64.7 % (42.0-75.0); Hemoglobin 10.7 g/dL (12.0-16.0); Mean Corpuscular HGB CONC 33.1 g/dL (32.0-36.0); Mean Corpuscular Hemoglobin 28.9 pg (27.0-31.0); Mean Corpuscular Volume 87.4 fl (78.0-98.0); Mean Platelet Volume 7.5 fL (7.4-10.4); Platelet Count 311 10x3/uL (130-400); White Blood Cell (WBC) Count 5.9 10x3/uL (4.8-10.8)
[2022-03-16 11:19] LABS: ALT (SGPT) 21 U/L (8-55); AST (SGOT) 11 U/L (5-34); Albumin 3.7 g/dL (3.5-5.0); Alkaline Phosphatase 43 U/L (40-110); Anion Gap 11 mmol/L (10-20); BUN (Urea Nitrogen) 10 mg/dL (7.0-18.7); Bilirubin, Total 0.4 mg/dL (0.2-1.2); Calc. Creatinine Clearance 0 mL/min (70-130); Calcium 8.9 mg/dL (7.8-10.44); Carbon Dioxide 28 mmol/L (22-29); Chloride 104 mmol/L (98-107); Estimated GFR 117; Globulin 2.9 g/dL (2.4-3.5); Glucose 116 mg/dL (70-105); Lipase 14 U/L (8-78); Potassium 3.7 mmol/L (3.5-5.1); Protein, Total 6.6 g/dL (6.0-8.3); Sodium 139 mmol/L (136-145)
[2022-03-16] MEDS ORDERED: Ondansetron PF 4 MG/2 ML Vial ONE (12:46)
[2022-03-16] MEDS ORDERED: Ketorolac Tromethamine 30 MG/ML VIAL ONE (12:46)
== END 2022-03-16 14:39 | disposition home or self-care (01) ==
LOC: ERS 09:25
DX: R10.84 Generalized abdominal pain (principal); G43.909 Migraine, unspecified, not intractable, without status migrainosus; Z79.899 Other long term (current) drug therapy; Z86.73 Personal history of transient ischemic attack (TIA), and cerebral infarction without residual deficits
CPT/HCPCS: 36415; 74177; 80053; 81003; 81015; 81025; 83690; 85025; 96374; 96375; J1885; J2405; Q9967

== ENCOUNTER 2022-11-26 11:06 | Emergency (ER) | payer OTHER ==
[2022-11-26] MEDS ORDERED: Iopamidol-370 76% 500 ML MDV (1 ML CHARGE) ONE (11:08)
[2022-11-26 12:24] LABS: #Basophils 0.1 thou/uL (0.0-0.2); #Eosinphils 0.3 thou/uL (0.0-0.7); #Monocytes 0.4 thou/uL (0.11-0.59); #Neutrophils 6.9 thou/uL (1.40-6.50); %Basophils 0.7 % (0.0-1.0); %Eosinophils 2.7 % (0.0-10.0); %Lymphocytes 17.9 % (21.0-51.0); %Monocytes 4.3 % (0.0-10.0); %Neutrophils 73.1 % (42.0-75.0); Hematocrit 24.4 % (36.0-47.0); Hemoglobin 6.7 g/dL (12.0-16.0); Mean Corpuscular HGB CONC 27.5 g/dL (32.0-36.0); Mean Corpuscular Volume 76.5 fl (78.0-98.0); Mean Platelet Volume 9.7 fL (7.4-10.4); Platelet Count 701 10x3/uL (130-400); RBC Distribution Width 18.4 % (11.5-14.5); Red Blood Cell (RBC) Count 3.19 mill/uL (4.20-5.40); White Blood Cell (WBC) Count 9.4 10x3/uL (4.8-10.8)
[2022-11-26] MEDS ORDERED: diphenhydrAMINE 50 MG/ML VIAL ONE (12:46)
[2022-11-26] MEDS ORDERED: Ketorolac Tromethamine 30 MG/ML VIAL ONE (12:46)
[2022-11-26] MEDS ORDERED: Metoclopramide HCl 10 MG/2 ML VIAL ONE (12:46)
[2022-11-26 12:47] LABS: ALT (SGPT) 13 U/L (8-55); AST (SGOT) 7 U/L (5-34); Alkaline Phosphatase 49 U/L (40-110); Anion Gap 14 mmol/L (10-20); BUN (Urea Nitrogen) 7 mg/dL (7.0-18.7); Bilirubin, Total 0.2 mg/dL (0.2-1.2); Calc. Creatinine Clearance 0 mL/min (70-130); Calcium 9.4 mg/dL (7.8-10.44); Carbon Dioxide 25 mmol/L (22-29); Chloride 104 mmol/L (98-107); Estimated GFR 94; Globulin 3.3 g/dL (2.4-3.5); Glucose 136 mg/dL (70-105); Lipase 12 U/L (8-78); Potassium 3.6 mmol/L (3.5-5.1); Protein, Total 7.3 g/dL (6.0-8.3); Sodium 139 mmol/L (136-145)
[2022-11-26 12:52] LABS: CellaVision Operator ID LAB.GE; Hypochromia SLIGHT = 6-15 cells HPF (0-5); Microcytosis SLIGHT = 6-15 cells HPF (0-5); Ovalocytes SLIGHT = 2-5 cells HPF (0-1); Platelet Adequacy Comment Platelets Increased; Polychromasia MODERATE = 3-4 cells HPF (0-2); Tear Drops SLIGHT = 2-5 cells HPF (0-1)
[2022-11-26 13:00] LABS: BHCG - Serum Negative (NEGATIVE); Pregs Control Background? CLEAR/WHITE (CLR/WHITE); Pregs Control Bar Appear? YES (CONTROL BAR)
[2022-11-26 13:13] LABS: Bilirubin Negative (Negative); Blood, Urine 3+ (Negative); CAUTI Indications for Culture Dysuria,urgency,freq; Clarity Turbid (Clear); Glucose, Urine (Dipstick) Normal (Negative); Ketone, Urine Negative (Negative); Leukocyte Negative Leu/uL (Negative); Nitrite Negative (Negative); Protein, Urine (Dipstick) 30 mg/dL (Neg-Trace); Specific Gravity, Urine 1.023 (1.002-1.036); Squamous Epithelial 0-3 HPF (0-3); Urobilinogen Normal mg/dL (Less than 2); WBC/HPF 0-3 HPF (0-3)
[2022-11-26 13:22] LABS: Bacteria/HPF 1+ HPF (None Seen)
[2022-11-26 13:23] LABS: Urine Culture Reflex No No
[2022-11-26] MEDS ORDERED: Acetaminophen 500 MG TAB ONE (17:25)
[2022-11-26] MEDS ORDERED: methylPREDNISolone Sod Succ/PF 125 MG/2 ML VIAL ONE (17:42)
[2022-11-26] MEDS ORDERED: Magnesium 2 GM/50 ML BAG (IN WATER) ONE (18:14)
== END 2022-11-26 18:57 | disposition home or self-care (01) ==
LOC: ERS 11:06
DX: G43.909 Migraine, unspecified, not intractable, without status migrainosus (principal); D64.9 Anemia, unspecified
CPT/HCPCS: 36415; 36416; 36430; 74177; 80053; 81001; 83690; 84703; 85025; 86850; 86900; 86901; 96365; 96367; 96375; J1200; J1885; J2765; J2930; J3475; P9016; Q9967

== ENCOUNTER 2024-02-09 12:33 | Inpatient (IN) | payer BC, OTHER, SELFPAY ==
[~2024-02-09 12:33] MED LIST changes: -Iopamidol-370 76% 500 ML 1 ML ONE; +Iopamidol-370 76% 500 ML MDV (1 ML CHARGE) ONE
[2024-02-09 15:30] LABS: #Basophils 0.06 10x3/uL (0.0-0.2); %Basophils 0.7 % (0.0-1.0); %Eosinophils 4.2 % (0.0-10.0); %Lymphocytes 23.5 % (21.0-51.0); %Monocytes 6.5 % (0.0-10.0); %Neutrophils 64.4 % (42.0-75.0); Hematocrit 38.5 % (36.0-47.0); Hemoglobin 11.5 g/dL (12.0-16.0); Mean Corpuscular HGB CONC 29.9 g/dL (32.0-36.0); Mean Corpuscular Hemoglobin 22.5 pg (27.0-31.0); Mean Corpuscular Volume 75.3 fL (78.0-98.0); Mean Platelet Volume 9.4 fL (7.4-10.4); Platelet Count 566 10x3/uL (130-400); RBC Distribution Width 19.9 % (11.5-14.5); Red Blood Cell (RBC) Count 5.11 mill/uL (4.20-5.40)
[2024-02-09 15:45] LABS: ALT (SGPT) 13 U/L (8-55); AST (SGOT) 8 U/L (5-34); Albumin 3.8 g/dL (3.5-5.0); Alkaline Phosphatase 54 U/L (40-110); Anion Gap 16 mmol/L (10-20); BUN (Urea Nitrogen) 13 mg/dL (7.0-18.7); Bilirubin, Total 0.2 mg/dL (0.2-1.2); Calc. Creatinine Clearance 0 mL/min (70-130); Calcium 9.2 mg/dL (7.8-10.44); Carbon Dioxide 21 mmol/L (22-29); Chloride 105 mmol/L (98-107); Estimated GFR 116; Globulin 3.7 g/dL (2.4-3.5); Glucose 93 mg/dL (70-105); Protein, Total 7.5 g/dL (6.0-8.3); Sodium 138 mmol/L (136-145)
[2024-02-09 15:51] LABS: Troponin I Less than 0.010 ng/mL (< 0.028)
[2024-02-09 16:07] LABS: BHCG - Serum Negative (NEGATIVE); Pregs Control Background? CLEAR/WHITE (CLR/WHITE); Pregs Control Bar Appear? YES (CONTROL BAR)
[2024-02-09] MEDS ORDERED: Aspirin Chewable 81 MG TAB ONE (17:32)
[2024-02-09] MEDS ORDERED: diphenhydrAMINE 50 MG/ML VIAL ONE (18:00)
[2024-02-09] MEDS ORDERED: Metoclopramide HCl 10 MG (2 mL) VIAL ONE (18:01)
[2024-02-09] MEDS ORDERED: hydrALAZINE 20 MG/ML VIAL SLOW IVP PRN (19:35)
[2024-02-09] MEDS ORDERED: Ondansetron PF 4 MG/2 ML Vial IVP PRN (19:35)
[2024-02-09 22:28] VITALS: BMI 48.5
[2024-02-09] MEDS: AcetaZOLAMIDE 250 MG TAB PO SCH (23:07)
[2024-02-10] MEDS: Heparin 5,000 UNITS/ML VIAL SC SCH (00:12)
[2024-02-10] MEDS: Atorvastatin Calcium 40 MG TAB PO SCH (00:12)
[2024-02-10 05:24] LABS: #Basophils 0.06 10x3/uL (0.0-0.2); %Basophils 0.7 % (0.0-1.0); %Eosinophils 4.4 % (0.0-10.0); %Lymphocytes 24.7 % (21.0-51.0); %Neutrophils 59.6 % (42.0-75.0); Hematocrit 37.7 % (36.0-47.0); Mean Corpuscular HGB CONC 29.2 g/dL (32.0-36.0); Mean Corpuscular Hemoglobin 22.5 pg (27.0-31.0); Mean Corpuscular Volume 77.1 fL (78.0-98.0); Mean Platelet Volume 9.6 fL (7.4-10.4); Platelet Count 527 10x3/uL (130-400); RBC Distribution Width 19.9 % (11.5-14.5); Red Blood Cell (RBC) Count 4.89 mill/uL (4.20-5.40)
[2024-02-10 05:56] LABS: Anion Gap 13 mmol/L (10-20); BUN (Urea Nitrogen) 13 mg/dL (7.0-18.7); Calc. Creatinine Clearance 190 mL/min (70-130); Calcium 9.3 mg/dL (7.8-10.44); Carbon Dioxide 22 mmol/L (22-29); Cardiac Risk 5.1 (Less than 4.5); Chloride 108 mmol/L (98-107); Cholesterol 173 mg/dl (< 200 Desired); Estimated GFR 106; Glucose 127 mg/dL (70-105); HDL Cholesterol 34 mg/dL (>60 Neg Risk); LDL Cholesterol, Calculated 112 mg/dL; Potassium 3.7 mmol/L (3.5-5.1); Sodium 139 mmol/L (136-145); Triglycerides 135 mg/dL (Less than 150)
[2024-02-10] MEDS: Acetaminophen 325 MG TAB PO PRN (06:13)
[2024-02-10] MEDS: Aspirin 81 mg Enteric Coated Tablet PO SCH (08:43)
[2024-02-10] MEDS ORDERED: FLU (Fluarix Triv) TS24-25(6MOS UP)/PF 45 MCG/0.5 ML Syringe IM ONE (09:00)
[2024-02-10 15:32] LABS: Bacteria/HPF None Seen HPF (None Seen); Bilirubin Negative (Negative); Blood, Urine Negative (Negative); CAUTI Indications for Culture Acute Hematuria; Clarity Turbid (Clear); Glucose, Urine (Dipstick) Normal (Negative); Ketone, Urine Negative (Negative); Leukocyte Negative Leu/uL (Negative); Nitrite Negative (Negative); Protein, Urine (Dipstick) Negative (Neg-Trace); RBC/HPF 0-3 HPF (0-3); Specific Gravity, Urine 1.011 (1.002-1.036); Squamous Epithelial None Seen HPF (0-3); Urobilinogen Normal mg/dL (Less than 2); WBC/HPF None Seen HPF (0-3)
[2024-02-10 15:57] LABS: Urine Culture Reflex No No
[2024-02-11 04:00] LABS: #Basophils 0.07 10x3/uL (0.0-0.2); %Basophils 0.9 % (0.0-1.0); %Eosinophils 4.9 % (0.0-10.0); %Lymphocytes 27.7 % (21.0-51.0); %Monocytes 9.2 % (0.0-10.0); %Neutrophils 56.8 % (42.0-75.0); Hematocrit 36.5 % (36.0-47.0); Hemoglobin 10.7 g/dL (12.0-16.0); Mean Corpuscular HGB CONC 29.3 g/dL (32.0-36.0); Mean Corpuscular Hemoglobin 22.5 pg (27.0-31.0); Mean Corpuscular Volume 76.8 fL (78.0-98.0); Mean Platelet Volume 9.5 fL (7.4-10.4); Platelet Count 542 10x3/uL (130-400); RBC Distribution Width 19.7 % (11.5-14.5); Red Blood Cell (RBC) Count 4.75 mill/uL (4.20-5.40)
[2024-02-11 04:19] LABS: Anion Gap 11 mmol/L (10-20); BUN (Urea Nitrogen) 11 mg/dL (7.0-18.7); Calc. Creatinine Clearance 182 mL/min (70-130); Calcium 9.3 mg/dL (7.8-10.44); Carbon Dioxide 22 mmol/L (22-29); Chloride 107 mmol/L (98-107); Estimated GFR 101; Glucose 129 mg/dL (70-105); Potassium 3.9 mmol/L (3.5-5.1); Sodium 136 mmol/L (136-145)
[2024-02-11] MEDS: Clopidogrel Bisulfate 75 MG TAB PO SCH (08:42)
[2024-02-11] MEDS ORDERED: CATH FS PRN (09:45)
[2024-02-11] MEDS ORDERED: PROPOFOL 200 MG/20 ML VIAL ONE (12:15)
[2024-02-11] MEDS: AcetaZOLAMIDE 250 MG TAB PO SCH (21:10)
[2024-02-12] MEDS ORDERED: Sodium Bicarbonate 2.5 MEQ/5 ML SDV ONE (07:48)
[2024-02-12 08:52] VITALS: BP 134/94; TEMP 97.6
[2024-02-12] MEDS: Topiramate 100 MG TAB PO SCH (10:11)
== END 2024-02-12 12:53 | disposition home or self-care (01) | DRG 69 ==
LOC: ERS 12:33 → 2SE 19:27 → OBSVTOIN 02-10 15:48
PROVIDERS: ADMIT Internal Medicine; ATTEND Family Medicine
PROC: B24BZZ4 Ultrasonography of Heart with Aorta, Transesophageal (ICD-10-PCS; principal; 2024-02-11)
DX: G45.9 Transient cerebral ischemic attack, unspecified (principal); Z68.42 Body mass index [BMI] 45.0-49.9, adult; G43.109 Migraine with aura, not intractable, without status migrainosus; Z90.49 Acquired absence of other specified parts of digestive tract; E66.01 Morbid (severe) obesity due to excess calories; Z79.82 Long term (current) use of aspirin; Z79.899 Other long term (current) drug therapy; G93.2 Benign intracranial hypertension; Z79.01 Long term (current) use of anticoagulants
CPT/HCPCS: 36415; 36416; 62270; 70450; 70496; 70498; 70551; 71045; 80048; 80053; 80061; 81001; 84484; 84703; 85025; 93005; 93312; 96372; 96374; 96375; G0378; J1200; J1644; J2704; J2765; Q9967

== ENCOUNTER 2024-03-26 10:37 | Emergency (ER) | payer OTHER ==
[2024-03-26 11:15] LABS: Bilirubin Negative (Negative); Blood, Urine 2+ (Negative); CAUTI Indications for Culture Pelvic or flank pain; Clarity Turbid (Clear); Glucose, Urine (Dipstick) Normal (Negative); Ketone, Urine Negative (Negative); Leukocyte 250 Leu/uL (Negative); Nitrite Negative (Negative); Protein, Urine (Dipstick) 10 mg/dL (Neg-Trace); Specific Gravity, Urine 1.016 (1.002-1.036); Urobilinogen Normal mg/dL (Less than 2); WBC/HPF 0-3 HPF (0-3)
[2024-03-26 11:16] LABS: #Basophils 0.06 10x3/uL (0.0-0.2); %Basophils 0.6 % (0.0-1.0); %Eosinophils 3.3 % (0.0-10.0); %Lymphocytes 20.6 % (21.0-51.0); %Monocytes 7.3 % (0.0-10.0); %Neutrophils 67.8 % (42.0-75.0); Hematocrit 38.9 % (36.0-47.0); Hemoglobin 11.7 g/dL (12.0-16.0); Mean Corpuscular HGB CONC 30.1 g/dL (32.0-36.0); Mean Corpuscular Hemoglobin 23.2 pg (27.0-31.0); Mean Corpuscular Volume 77.2 fL (78.0-98.0); Mean Platelet Volume 9.7 fL (7.4-10.4); Platelet Count 374 10x3/uL (130-400); RBC Distribution Width 19.1 % (11.5-14.5); Red Blood Cell (RBC) Count 5.04 mill/uL (4.20-5.40)
[2024-03-26 11:19] LABS: Bacteria/HPF 1+ HPF (None Seen)
[2024-03-26 11:20] LABS: Pregnancy Test - Urine (BHCG) Negative (Negative); Pregu Control Background? CLEAR/WHITE (CLR/WHITE); Pregu Control Bar Appear? YES (CONTROL BAR); Specific Gravity 1.016 (1.002-1.036); Urine Culture Reflex No No
[2024-03-26 11:30] LABS: ALT (SGPT) 9 U/L (Less than 34); AST (SGOT) 13 U/L (11-34); Alkaline Phosphatase 58 U/L (40-110); Anion Gap 14 mmol/L (10-20); BUN (Urea Nitrogen) 10 mg/dL (7.0-18.7); Bilirubin, Total 0.4 mg/dL (0.3-1.2); Calc. Creatinine Clearance 0 mL/min (70-130); Calcium 9.6 mg/dL (7.8-10.44); Carbon Dioxide 25 mmol/L (22-29); Chloride 104 mmol/L (98-107); Estimated GFR 120; Globulin 3.8 g/dL (2.4-3.5); Glucose 118 mg/dL (70-105); Lipase 18 U/L (8-78); Potassium 3.9 mmol/L (3.5-5.1); Protein, Total 7.8 g/dL (6.0-8.3); Sodium 139 mmol/L (136-145)
[2024-03-26] MEDS ORDERED: Ondansetron PF 4 MG/2 ML Vial ONE (12:55)
[2024-03-26] MEDS ORDERED: Morphine 4 MG/ML VIAL ONE (12:55)
[2024-03-26] MEDS ORDERED: Iopamidol-370 76% 500 ML MDV (1 ML CHARGE) ONE (13:48)
== END 2024-03-26 15:28 | disposition home or self-care (01) ==
LOC: ERS 10:37
DX: R10.84 Generalized abdominal pain (principal); R11.2 Nausea with vomiting, unspecified
CPT/HCPCS: 36415; 74177; 80053; 81001; 81025; 83690; 85025; 96374; 96375; J2270; J2405; Q9967

== ENCOUNTER 2024-09-26 20:50 | Emergency (ER) | payer OTHER ==
[2024-09-26 21:35] LABS: Bacteria/HPF None Seen HPF (None Seen); CAUTI Indications for Culture Pelvic or flank pain; Glucose, Urine (Dipstick) Normal (Negative); Leukocyte Negative Leu/uL (Negative); Protein, Urine (Dipstick) Negative (Neg-Trace); RBC/HPF 0-3 HPF (0-3); Specific Gravity, Urine 1.018 (1.002-1.036); WBC/HPF 0-3 HPF (0-3)
[2024-09-26 21:40] LABS: Urine Culture Reflex No No
[2024-09-26 22:01] LABS: #Basophils 0.04 10x3/uL (0.0-0.2); #Eosinophils 0.35 10x3/uL (0.0-0.7); #Monocytes 0.82 10x3/uL (0.11-0.59); #Neutrophils 7.66 10x3/uL (1.40-6.50); %Basophils 0.4 % (0.0-1.0); %Eosinophils 3.2 % (0.0-10.0); %Lymphocytes 18.8 % (21.0-51.0); %Monocytes 7.4 % (0.0-10.0); %Neutrophils 69.3 % (42.0-75.0); Hematocrit 37.8 % (36.0-47.0); Hemoglobin 11.6 g/dL (12.0-16.0); Mean Corpuscular Hemoglobin 24.1 pg (27.0-31.0); Mean Corpuscular Volume 78.6 fL (78.0-98.0); Platelet Count 359 10x3/uL (130-400); Red Blood Cell (RBC) Count 4.81 mill/uL (4.20-5.40); White Blood Cell (WBC) Count 11.04 10x3/uL (4.8-10.8)
[2024-09-26] MEDS ORDERED: Ondansetron PF 4 MG/2 ML Vial ONE (22:04)
[2024-09-26] MEDS ORDERED: Ketorolac Tromethamine 30 MG (1 mL) VIAL ONE (22:04)
[2024-09-26 22:13] LABS: BHCG - Serum Negative (NEGATIVE)
[2024-09-26 22:14] LABS: Pregs Control Background? CLEAR/WHITE (CLR/WHITE); Pregs Control Bar Appear? YES (CONTROL BAR)
[2024-09-26 22:21] LABS: ALT (SGPT) 24 U/L (Less than 34); AST (SGOT) 17 U/L (11-34); Albumin 3.7 g/dL (3.1-4.5); Alkaline Phosphatase 64 U/L (40-110); Anion Gap 15 mmol/L (10-20); BUN (Urea Nitrogen) 10 mg/dL (7.0-18.7); Bilirubin, Total 0.2 mg/dL (0.3-1.2); Calc. Creatinine Clearance 0 mL/min (70-130); Calcium 9.0 mg/dL (7.8-10.44); Carbon Dioxide 24 mmol/L (22-29); Chloride 107 mmol/L (98-107); Globulin 3.9 g/dL (2.4-3.5); Glucose 115 mg/dL (70-105); Lipase 19 U/L (8-78); Potassium 3.6 mmol/L (3.5-5.1); Sodium 142 mmol/L (136-145)
== END 2024-09-27 00:26 | disposition home or self-care (01) ==
LOC: ERS 20:50
DX: R10.30 Lower abdominal pain, unspecified (principal)
CPT/HCPCS: 74177; 80053; 81001; 83690; 84703; 85025; 96361; 96374; 96375; J1885; J2405; Q9967

== ENCOUNTER 2024-11-05 10:11 | Observation (INO) | payer OTHER ==
[2024-11-05] MEDS ORDERED: Iopamidol-370 76% 500 ML MDV (1 ML CHARGE) ONE (10:39)
[2024-11-05 11:29] LABS: #Basophils 0.06 10x3/uL (0.0-0.2); #Eosinophils 0.30 10x3/uL (0.0-0.7); #Monocytes 0.68 10x3/uL (0.11-0.59); #Neutrophils 9.72 10x3/uL (1.40-6.50); %Basophils 0.5 % (0.0-1.0); %Eosinophils 2.3 % (0.0-10.0); %Lymphocytes 15.0 % (21.0-51.0); %Monocytes 5.3 % (0.0-10.0); %Neutrophils 76.2 % (42.0-75.0); Hematocrit 40.4 % (36.0-47.0); Hemoglobin 12.5 g/dL (12.0-16.0); Mean Corpuscular Hemoglobin 24.9 pg (27.0-31.0); Mean Corpuscular Volume 80.3 fL (78.0-98.0); Platelet Count 392 10x3/uL (130-400); Red Blood Cell (RBC) Count 5.03 mill/uL (4.20-5.40); White Blood Cell (WBC) Count 12.77 10x3/uL (4.8-10.8)
[2024-11-05] MEDS ORDERED: Aspirin Chewable 81 MG TAB ONE (11:40)
[2024-11-05 11:42] LABS: INR-International Normal Ratio 1.0; Prothrombin Time 13.4 sec (12.0-14.7)
[2024-11-05 11:43] LABS: PTT 33.4 sec (22.9-36.1)
[2024-11-05 11:53] LABS: ALT (SGPT) 14 U/L (Less than 34); AST (SGOT) 15 U/L (11-34); Albumin 3.9 g/dL (3.1-4.5); Alkaline Phosphatase 76 U/L (40-110); Anion Gap 14 mmol/L (10-20); BUN (Urea Nitrogen) 11 mg/dL (7.0-18.7); Bilirubin, Total 0.2 mg/dL (0.3-1.2); Calc. Creatinine Clearance 0 mL/min (70-130); Calcium 9.5 mg/dL (7.8-10.44); Carbon Dioxide 25 mmol/L (22-29); Chloride 106 mmol/L (98-107); Globulin 3.7 g/dL (2.4-3.5); Glucose 108 mg/dL (70-105); Lipase 22 U/L (8-78); Magnesium 1.8 mg/dL (1.6-2.6); Potassium 4.2 mmol/L (3.5-5.1); Sodium 141 mmol/L (136-145)
[2024-11-05 12:07] LABS: Pregnancy Test - Urine (BHCG) Negative (Negative); Pregu Control Background? CLEAR/WHITE (CLR/WHITE); Pregu Control Bar Appear? YES (CONTROL BAR)
[2024-11-05 12:12] LABS: Bacteria/HPF 2+ HPF (None Seen); CAUTI Indications for Culture Pelvic or flank pain; Glucose, Urine (Dipstick) Normal (Negative); Leukocyte 250 Leu/uL (Negative); Protein, Urine (Dipstick) Negative (Neg-Trace); RBC/HPF 0-3 HPF (0-3); Specific Gravity, Urine 1.012 (1.002-1.036)
[2024-11-05 12:14] LABS: Urine Culture Reflex No No
[2024-11-05] MEDS ORDERED: Acetaminophen 500 MG TAB ONE (14:38)
[2024-11-05] MEDS ORDERED: cefTRIAXone (ROCEPHIN) 1 GM VIAL ONE (17:19)
[2024-11-05] MEDS ORDERED: Melatonin 3 MG TAB PO PRN (18:17)
[2024-11-05] MEDS ORDERED: hydrALAZINE 20 MG/ML VIAL SLOW IVP PRN (18:22)
[2024-11-05] MEDS: Acetaminophen 325 MG TAB PO PRN (21:42)
[2024-11-05 23:33] VITALS: BMI 47.9
[2024-11-06 04:06] LABS: #Basophils 0.06 10x3/uL (0.0-0.2); #Eosinophils 0.40 10x3/uL (0.0-0.7); #Monocytes 0.66 10x3/uL (0.11-0.59); #Neutrophils 6.52 10x3/uL (1.40-6.50); %Basophils 0.6 % (0.0-1.0); %Eosinophils 4.0 % (0.0-10.0); %Lymphocytes 22.3 % (21.0-51.0); %Monocytes 6.7 % (0.0-10.0); %Neutrophils 65.9 % (42.0-75.0); Hematocrit 36.6 % (36.0-47.0); Hemoglobin 11.0 g/dL (12.0-16.0); Mean Corpuscular Hemoglobin 24.3 pg (27.0-31.0); Mean Corpuscular Volume 81.0 fL (78.0-98.0); Platelet Count 371 10x3/uL (130-400); Red Blood Cell (RBC) Count 4.52 mill/uL (4.20-5.40); White Blood Cell (WBC) Count 9.90 10x3/uL (4.8-10.8)
[2024-11-06 04:19] LABS: Anion Gap 13 mmol/L (10-20); BUN (Urea Nitrogen) 12 mg/dL (7.0-18.7); Calc. Creatinine Clearance 245 mL/min (70-130); Calcium 8.9 mg/dL (7.8-10.44); Carbon Dioxide 26 mmol/L (22-29); Cardiac Risk 5.4 (Less than 4.5); Chloride 107 mmol/L (98-107); Cholesterol 145 mg/dl (< 200 Desired); Glucose 116 mg/dL (70-105); HDL Cholesterol 27 mg/dL (>60 Neg Risk); LDL Cholesterol, Calculated 91 mg/dL; Potassium 3.7 mmol/L (3.5-5.1); Sodium 142 mmol/L (136-145); Triglycerides 136 mg/dL (Less than 150)
[2024-11-06] MEDS: Enoxaparin 40 MG (0.4 mL) SYRINGE SC SCH (08:06)
[2024-11-06] MEDS ORDERED: cefTRIAXone\\ROCEPHIN 1 GM in Sodium Chloride 0.9% 100 ML IVPB SCH ×2 (10:00→17:00)
[2024-11-06] MEDS: Cephalexin 250 MG CAP PO SCH (16:07)
[2024-11-06] MEDS ORDERED: Cyclobenzaprine 10 MG TAB PO PRN (18:08)
[2024-11-07 08:39] VITALS: BP 136/73; TEMP 98.3
== END 2024-11-07 11:54 | disposition home or self-care (01) ==
LOC: ERS 10:11 → 2SE 17:45
PROVIDERS: ADMIT Internal Medicine; ATTEND Student in an Organized Health Care Education/Training Program
DX: R53.1 Weakness (principal); R20.0 Anesthesia of skin; N39.0 Urinary tract infection, site not specified; G43.909 Migraine, unspecified, not intractable, without status migrainosus; K21.9 Gastro-esophageal reflux disease without esophagitis; Z79.899 Other long term (current) drug therapy
CPT/HCPCS: 36415; 36416; 70450; 70496; 70498; 70551; 71045; 80048; 80053; 80061; 81001; 81025; 83690; 83735; 84484; 85025; 85610; 85730; 87086; 93005; 93306; 96365; 96372; G0378; J0696; J1650; Q9967

== ENCOUNTER 2024-12-26 10:09 | Emergency (ER) | payer OTHER ==
[2024-12-26 12:12] LABS: CAUTI Indications for Culture Pelvic or flank pain; Glucose, Urine (Dipstick) Normal (Negative); Leukocyte 75 Leu/uL (Negative); Protein, Urine (Dipstick) 20 mg/dL (Neg-Trace); RBC/HPF 0-3 HPF (0-3); Specific Gravity, Urine 1.031 (1.002-1.036)
[2024-12-26 12:13] LABS: Bacteria/HPF 1+ HPF (None Seen)
[2024-12-26 12:14] LABS: Urine Culture Reflex No No
[2024-12-26 12:20] LABS: ALT (SGPT) 16 U/L (Less than 34); AST (SGOT) 14 U/L (11-34); Albumin 3.8 g/dL (3.1-4.5); Alkaline Phosphatase 56 U/L (40-110); Anion Gap 15 mmol/L (10-20); BUN (Urea Nitrogen) 10 mg/dL (7.0-18.7); Bilirubin, Total 0.3 mg/dL (0.3-1.2); Calc. Creatinine Clearance 0 mL/min (70-130); Calcium 9.2 mg/dL (7.8-10.44); Carbon Dioxide 24 mmol/L (22-29); Chloride 106 mmol/L (98-107); Globulin 3.3 g/dL (2.4-3.5); Glucose 126 mg/dL (70-105); Lipase 20 U/L (8-78); Potassium 4.4 mmol/L (3.5-5.1); Sodium 141 mmol/L (136-145)
[2024-12-26] MEDS ORDERED: Iopamidol 370 76% 100 ML VIAL ONE (12:25)
[2024-12-26] MEDS ORDERED: Metoclopramide HCl 10 MG (2 mL) VIAL ONE (12:43)
[2024-12-26] MEDS ORDERED: Ondansetron PF 4 MG/2 ML Vial ONE (12:43)
[2024-12-26 12:46] LABS: #Basophils 0.05 10x3/uL (0.0-0.2); #Eosinophils 0.36 10x3/uL (0.0-0.7); #Monocytes 0.70 10x3/uL (0.11-0.59); #Neutrophils 7.73 10x3/uL (1.40-6.50); %Basophils 0.5 % (0.0-1.0); %Eosinophils 3.3 % (0.0-10.0); %Lymphocytes 17.7 % (21.0-51.0); %Monocytes 6.5 % (0.0-10.0); %Neutrophils 71.4 % (42.0-75.0); Hematocrit 39.6 % (36.0-47.0); Hemoglobin 12.2 g/dL (12.0-16.0); Mean Corpuscular Hemoglobin 25.5 pg (27.0-31.0); Mean Corpuscular Volume 82.8 fL (78.0-98.0); Platelet Count 307 10x3/uL (130-400); Red Blood Cell (RBC) Count 4.78 mill/uL (4.20-5.40); White Blood Cell (WBC) Count 10.82 10x3/uL (4.8-10.8)
[2024-12-26 12:56] LABS: BHCG - Serum Negative (NEGATIVE); Pregs Control Background? CLEAR/WHITE (CLR/WHITE); Pregs Control Bar Appear? YES (CONTROL BAR)
== END 2024-12-26 15:00 | disposition home or self-care (01) ==
LOC: ERS 10:09
DX: R10.32 Left lower quadrant pain (principal)
CPT/HCPCS: 70450; 74177; 80053; 81001; 83690; 84703; 85025; 96374; 96375; J2270; J2405; J2765

== ENCOUNTER 2025-02-10 19:07 | Emergency (ER) | payer OTHER ==
[2025-02-10 19:41] LABS: #Basophils 0.10 10x3/uL (0.0-0.2); #Eosinophils 0.49 10x3/uL (0.0-0.7); #Monocytes 0.89 10x3/uL (0.11-0.59); #Neutrophils 17.12 10x3/uL (1.40-6.50); %Basophils 0.5 % (0.0-1.0); %Eosinophils 2.3 % (0.0-10.0); %Lymphocytes 12.5 % (21.0-51.0); %Monocytes 4.1 % (0.0-10.0); %Neutrophils 79.3 % (42.0-75.0); Hematocrit 43.1 % (36.0-47.0); Hemoglobin 13.1 g/dL (12.0-16.0); Mean Corpuscular Hemoglobin 25.8 pg (27.0-31.0); Mean Corpuscular Volume 84.8 fL (78.0-98.0); Platelet Count 405 10x3/uL (130-400); Red Blood Cell (RBC) Count 5.08 mill/uL (4.20-5.40); White Blood Cell (WBC) Count 21.57 10x3/uL (4.8-10.8)
[2025-02-10 19:54] LABS: BHCG - Serum Negative (NEGATIVE); Pregs Control Background? CLEAR/WHITE (CLR/WHITE); Pregs Control Bar Appear? YES (CONTROL BAR)
[2025-02-10 20:06] LABS: ALT (SGPT) 14 U/L (Less than 34); AST (SGOT) 10 U/L (11-34); Albumin 4.0 g/dL (3.1-4.5); Alkaline Phosphatase 80 U/L (40-110); Anion Gap 14 mmol/L (10-20); BUN (Urea Nitrogen) 10 mg/dL (7.0-18.7); Bilirubin, Total 0.2 mg/dL (0.3-1.2); Calc. Creatinine Clearance 0 mL/min (70-130); Calcium 10.2 mg/dL (7.8-10.44); Carbon Dioxide 27 mmol/L (22-29); Chloride 103 mmol/L (98-107); Globulin 3.5 g/dL (2.4-3.5); Glucose 135 mg/dL (70-105); Potassium 3.7 mmol/L (3.5-5.1); Sodium 140 mmol/L (136-145)
[2025-02-10] MEDS ORDERED: cefTRIAXone (ROCEPHIN) 2 GM VIAL ONE (20:23)
[2025-02-10 20:29] LABS: CAUTI Indications for Culture Alt mental st,lethar; Glucose, Urine (Dipstick) Normal (Negative); Leukocyte 500 Leu/uL (Negative); Protein, Urine (Dipstick) 30 mg/dL (Neg-Trace); RBC/HPF 0-3 HPF (0-3); Specific Gravity, Urine 1.021 (1.002-1.036)
[2025-02-10 20:41] LABS: Bacteria/HPF 1+ HPF (None Seen); Urine Culture Reflex No No
[2025-02-10] MEDS ORDERED: Acetaminophen 500 MG TAB ONE (21:38)
[2025-02-10] MEDS ORDERED: Ketorolac Tromethamine 30 MG (1 mL) VIAL ONE (23:00)
[2025-02-10 23:25] LABS: INR-International Normal Ratio 1.0; Prothrombin Time 13.2 sec (12.0-14.7)
[2025-02-10 23:26] LABS: PTT 31.5 sec (22.9-36.1)
[2025-02-11] MEDS ORDERED: HYDROcodone/Acetaminophen 7.5/325 mg Tablet ONE (01:42)
== END 2025-02-11 02:20 | disposition home or self-care (01) ==
LOC: ERS 19:07
DX: N10 Acute pyelonephritis (principal); D72.829 Elevated white blood cell count, unspecified; E66.01 Morbid (severe) obesity due to excess calories; Z86.73 Personal history of transient ischemic attack (TIA), and cerebral infarction without residual deficits
CPT/HCPCS: 36415; 70450; 74177; 76856; 80053; 81001; 83605; 83690; 84703; 85025; 85610; 85730; 87040; 87077; 87086; 96361; 96374; 96375; J0696; J1885; Q9967